=== PATIENT | female | born 1970 | race Caucasian/White ===

== ENCOUNTER 2020-06-27 15:26 | Outpatient (CLI) | payer BC, SELFPAY ==
--- NOTE | ~2020-06-27 | MM_ITS ---
EXAMINATION: MM screening naomi BI w donal HISTORY: Screening mammogram, family history of breast cancer in her mother. TECHNIQUE: Craniocaudal and mediolateral oblique 3-D tomosynthesis images were obtained and synthetic 2-D images were generated. CAD analysis was submitted and interpreted. COMPARISON: 03/29/2019, 03/11/2019, 12/12/2014 BREAST PARENCHYMAL COMPOSITION: The breasts are almost entirely fatty. FINDINGS: There is no evidence of suspicious mass, calcification, or architectural distortion to sugg est malignancy in either breast. There has been no suspicious interval change. IMPRESSION: 1. No mammographic evidence of malignancy. 2. Recommend routine screening mammography in one year. BI-RADS Category 1: Negative Reviewed, dictated and finalized at location B.
== END 2020-06-27 15:27 | disposition home or self-care (01) ==
LOC: ANHIMG 15:28
PROVIDERS: PCP Internal Medicine; Visit Provider Advanced Practice Midwife
DX: Z12.31 Encounter for screening mammogram for malignant neoplasm of breast (principal)
CPT/HCPCS: 77063; 77067

== ENCOUNTER → 2021-06-29 11:18 | Outpatient (CLI) | payer BC, SELFPAY ==
--- NOTE | ~2021-06-29 | MM_ITS ---
EXAMINATION: MM screening naomi BI w donal HISTORY: Screening TECHNIQUE: Craniocaudal and mediolateral oblique 3-D tomosynthesis images were obtained and synthetic 2-D images were generated. CAD analysis was submitted and interpreted. COMPARISON: Comparison to multiple prior studies sequentially, with oldest reviewed study dated 08/22. BREAST PARENCHYMAL COMPOSITION: There are scattered areas of fibroglandular density. FINDINGS: There is no evidence of suspicious mass, calcification, or architectural distortion to sugg est malignancy in either breast. There has been no suspicious interval change. IMPRESSION: 1. No mammographic evidence of malignancy. 2. Recommend routine screening mammography in one year. BI-RADS Category 1: Negative Reviewed, dictated and finalized at location A.
== END ==
PROVIDERS: Visit Provider Advanced Practice Midwife
DX: Z12.31 Encounter for screening mammogram for malignant neoplasm of breast (principal)
CPT/HCPCS: 77063; 77067

== ENCOUNTER → 2021-08-08 16:44 | Outpatient (CLI) | payer BC, SELFPAY ==
--- NOTE | ~2021-08-08 | XR_ITS ---
EXAMINATION: XR chest 2V 08/08/2021 17:00 INDICATION: Shortness of breath and chest pain PROCEDURE: 2 view chest COMPARISON: 04/12/2014 FINDINGS: The lungs are clear. The cardiomediastinal silhouette is within normal limits. There are no pleural effusions. There is no pneumothorax suspected. IMPRESSION: 1: NO ACUTE CARDIOPULMONARY DISEASE. Reviewed, dictated and finalized at location A.
== END ==
PROVIDERS: PCP Internal Medicine; Visit Provider Internal Medicine
DX: R06.02 Shortness of breath (principal); R07.89 Other chest pain
CPT/HCPCS: 71046

== ENCOUNTER → 2022-09-10 14:03 | Outpatient (CLI) | payer BC, OTHER, SELFPAY ==
--- NOTE | ~2022-09-10 | MM_ITS ---
EXAMINATION: MM screening naomi BI w donal HISTORY: Screening TECHNIQUE: Craniocaudal and mediolateral oblique 3-D tomosynthesis images were obtained and synthetic 2-D images were generated. CAD analysis was submitted and interpreted. COMPARISON: Breast composed of scattered areas of fibroglandular density BREAST PARENCHYMAL COMPOSITION: The breasts are almost entirely fatty. FINDINGS: There is no evidence of suspicious mass, calcification, or architectural distortion to sugg est malignancy in either breast. There has been no suspicious interval change. IMPRESSION: 1. No mammographic evidence of malignancy. 2. Recommend routine screening mammography in one year. BI-RADS Category 1: Negative Reviewed, dictated and finalized at location A.
== END ==
PROVIDERS: PCP Advanced Practice Midwife
DX: Z12.31 Encounter for screening mammogram for malignant neoplasm of breast (principal)
CPT/HCPCS: 77063; 77067

== ENCOUNTER 2022-12-05 08:07 | Outpatient (CLI) | payer BC, SELFPAY ==
[2022-12-05 20:00] LABS: Basophils Absolute Auto 0.1 K/mm3 (0.0-0.1); Basophils Percent Auto 1.4 % (0.2-1.2); Eosinophils Absolute Auto 0.3 K/mm3 (0-0.3); Eosinophils Percent Auto 5.3 % (0-4.4); Hematocrit 41.5 % (37.0-47.0); Immature Granulocyte Absolute 0.01 K/mm3 (0.00-0.031); Immature Granulocyte Percent A 0.2 % (0-0.5); Lymphocytes Percent Auto 41.7 % (18.3-44.2); Mean Corpuscular HGB Conc 33.7 g/dl (32-36); Mean Corpuscular Hemoglobin 30.6 pg (26-34); Mean Corpuscular Volume 90.6 fl (80-100); Mean Platelet Volume 10.5 fl (7.4-10.4); Monocytes Absolute Auto 0.5 K/mm3 (0.1-0.6); Monocytes Percent Auto 9.8 % (2.6-8.5); Neutrophils Absolute Auto 2.3 K/mm3 (1.3-6.7); Neutrophils Percent Auto 41.6 % (45.5-73.1); Platelet Count Result 253 k/mm3 (150-375); Red Blood Count 4.58 M/mm3 (4.2-5.4); Red Cell Distribution Width 12.9 % (11.5-14.5); White Blood Count 5.5 K/mm3 (4.5-10.0)
[2022-12-05 20:08] LABS: Alanine Aminotransferase 37 U/L (6-35); Albumin Level 4.3 g/dL (3.5-5.1); Alkaline Phosphatase 60 U/L (38-126); Anion Gap 6 mmol/L (8-16); Aspartate Amino Transferase 47 U/L (14-36); Bilirubin,Total 0.5 mg/dL (0.2-1.3); Blood Urea Nitrogen 19 mg/dL (7-17); Calcium 8.8 mg/dL (8.4-10.2); Carbon Dioxide 31 mmol/L (22-30); Chloride 104 mmol/L (98-107); Cholesterol 199 mg/dL (0-200); Estimated Glomerular Filt Rate > 60; Glucose 92 mg/dL (65-110); HDL Direct 65 mg/dL; Potassium 4.5 mmol/L (3.4-5.0); Sodium 141 mmol/L (137-145); Triglycerides 146 mg/dL (<150)
[2022-12-05 20:19] LABS: LDL Cholesterol Direct 92 mg/dL
== END 2022-12-05 08:08 | disposition home or self-care (01) ==
LOC: ANHGOSHLAB 08:09
PROVIDERS: PCP Internal Medicine; Visit Provider Clinical Nurse Specialist
DX: G43.909 Migraine, unspecified, not intractable, without status migrainosus (principal); Z13.220 Encounter for screening for lipoid disorders; Z13.228 Encounter for screening for other metabolic disorders
CPT/HCPCS: 36415; 80053; 80061; 84443; 85025

== ENCOUNTER → 2022-12-18 09:07 | Outpatient (CLI) | payer BC, SELFPAY ==
--- NOTE | ~2022-12-18 | MR_ITS ---
MRI of the brain Clinical History: Headache Technique: Axial and sagittal T1-weighted images were acquired. These were followed by axial T2-weigh jacquie, diffusion weighted, gradient, and FLAIR images. Following intravenous administration of 19 cc Mu ltiHance gadolinium, T1-weighted fat-sat imaging was performed in the axial, coronal, and sagittal pl anes. COMPARISON: 02/14/2014 Findings: No abnormal signal seen in the brain parenchyma. No acute infarct, intracranial hemorrhage, or mass lesion. Ventricles and subarachnoid spaces are unremarkable. Orbits are unremarkable. Paranasal sinuses and m astoid air cells are clear. Major intracranial flow voids are intact. Sagittal midline structures are intact. No abnormal postcontrast enhancement identified. IMPRESSION: Unremarkable exam. Reviewed, dictated and finalized at location M. CE CLERK IMPRESSION: Unremarkable exam.
== END ==
PROVIDERS: PCP Clinical Nurse Specialist; Visit Provider Clinical Nurse Specialist
DX: G43.909 Migraine, unspecified, not intractable, without status migrainosus (principal)
CPT/HCPCS: 70553; A9577

== ENCOUNTER → 2023-09-14 13:48 | Outpatient (CLI) | payer BC, SELFPAY ==
--- NOTE | ~2023-09-14 | MM_ITS ---
EXAMINATION: MM screening naomi BI w donal HISTORY: Screening TECHNIQUE: Craniocaudal and mediolateral oblique 3-D tomosynthesis images were obtained and synthetic 2-D images were generated. CAD analysis was submitted and interpreted. COMPARISON: Comparison to multiple prior studies sequentially, with oldest reviewed study dated 12/12. BREAST PARENCHYMAL COMPOSITION: There are scattered areas of fibroglandular density. FINDINGS: There is no evidence of suspicious mass, calcification, or architectural distortion to sugg est malignancy in either breast. There has been no suspicious interval change. IMPRESSION: 1. No mammographic evidence of malignancy. 2. Recommend routine screening mammography in one year. BI-RADS Category 1: Negative Reviewed, dictated and finalized at location A.
== END ==
PROVIDERS: PCP Advanced Practice Midwife; Visit Provider Advanced Practice Midwife
DX: Z12.31 Encounter for screening mammogram for malignant neoplasm of breast (principal)
CPT/HCPCS: 77063; 77067

== ENCOUNTER → 2023-09-17 09:56 | Outpatient (CLI) | payer BC, SELFPAY ==
--- NOTE | ~2023-09-17 | CT_ITS ---
EXAMINATION: CT brain wo/w con DATE: 09/17/2023 10:59 INDICATION: Choroid plexus cyst TECHNIQUE: Computed tomography (CT) of the head was performed without and subsequently with 100 CC Om nipaque 350 intravenous contrast. The mA was adjusted according to patient size. Iterative reconstruc tion technique was employed. Exam dose: 1291.38 mGy-cm total exam DLP. COMPARISON: 12/18/2022 MRI brain/brainstem, 12/04/2019 CT brain FINDINGS: Bilateral carotid siphon internal carotid artery mild calcification. No intracranial mass lesion or hemorrhage or cerebrovascular accident, midline shift or mass effect e ffect is detected. Normal ventricular size. No subdural or epidural hematoma. No fracture or bone destruction of the cranial vault. Included mastoid air cells and paranasal sinuses are normally developed and aerated. IMPRESSION: Mild intracranial cerebral atherosclerosis; no acute intracranial finding Reviewed, dictated and finalized at Location A. Reviewed, dictated and finalized at location L.
== END ==
PROVIDERS: PCP Clinical Nurse Specialist
DX: G93.0 Cerebral cysts (principal); G43.101 Migraine with aura, not intractable, with status migrainosus; I67.2 Cerebral atherosclerosis
CPT/HCPCS: 70470; Q9967

== ENCOUNTER 2023-11-09 15:36 | Emergency (ER) | payer BC, SELFPAY ==
--- NOTE | ~2023-11-09 | XR_ITS ---
EXAMINATION: XR ankle RT min 3V INDICATION: Right ankle pain TECHNIQUE: Four views of the right ankle are obtained. COMPARISON: None available FINDINGS: Bone alignment is normal. There is no fracture. There is lateral soft tissue swelling of an kle. A plantar calcaneal enthesophyte is noted. IMPRESSION: 1. Lateral soft tissue swelling of ankle without acute osseous abnormality identified. Reviewed, dictated and finalized at location B. ISSIONED SALES ASSOCIATE IMPRESSION: 1. Lateral soft tissue swelling of ankle without acute osseous abnormality iden tified.
[2023-11-09 15:54] VITALS: BP 138/105; PULSE 73; RESP 16; TEMP 36.8; O2SAT 99
--- NOTE | 2023-11-09 16:06 | ED.LOWEXIN ---
HPI - Extremity Injury (Lower) General Chief Complaint: Extremity Injury, Lower Stated Complaint: Injured foot Source: patient, RN notes reviewed and old records reviewed Mode of arrival: ambulatory Limitations: no limitations History of Present Illness HPI Narrative: 43-year-old female patient presents with complaint of right ankle pain this started 2 hours ago after tripping over the dog and missing the last step. Patient noted to have pain andswelling lateral malleolus. MD complaint: ankle injury Onset (ago): hour(s) (2) Injury: Right: ankle Type of Injury: inversion Relieving factors: nothing Related Data Home Medications Medication Instructions Recorded Confirmed estradiol 1 mg tablet 1 mg PO DAILY 12/10/22 11/09/23 Allergies Allergy/AdvReac Type Severity Reaction Status Date / Time meperidine Allergy Unknown Unknown Verified 11/09/23 16:06 Penicillins Allergy Unknown Unknown Verified 11/09/23 16:06 Review of Systems Constitutional: Constitutional: Reports no additional constitutional complaints Eyes: Eyes: Reports no additional eye complaints ENT: Reports system reviewed and no additional complaints, except as documented Cardiovascular: Cardiovascular: Reports no additional cardiovascular complaints Respiratory: Respiratory: Reports no additional respiratory complaints Musculoskeletal: Musculoskeletal: Reports arthralgias, Reports joint swelling and Reports limited range of motion Neurologic: Reports system reviewed and no additional complaints, except as documented [facility] Past Medical History Medical History 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 Family history of diabetes mellitus GERD (gastroesophageal reflux disease) History of angina History of hormone therapy Migraines Pneumonia depression Screening for lipoid disorders Screening for metabolic disorder Seasonal allergies Surgical History Surgical History H/O left wrist surgery H/O right knee surgery H/O right wrist surgery H/O: hysterectomy Hx of breast reduction, elective Hx of LASIK bilateral Family History Family History Mother Family history of malignant neoplasm Family history of coronary artery disease Family history of type 2 diabetes mellitus Diabetes mellitus Father Patient's father is in good health Family history of type 2 diabetes mellitus Diabetes mellitus Social History Social History Social History: Caffeine-coffee/green tea Smoking status: Former smoker Alcohol intake: current Alcohol use details: occasionally wine Lack of Transportation: No Lack of Food: Never True Current Housing: I Have Housing Concerned About Future Housing: No Difficulty Paying Gas/Electric Bills: No Difficulty Paying for Meds: No Currently Unemployed: No Education: Trade/Vocational Certificate Difficulty w/ Childcare or Family Care: No Gender identity (if verbalized by the patient): Female Comments At the time of my signature, I reviewed and agree with the nursing past medical, surgical, social, and family history. There is no relevant family history pertinent to the patient complaint. Exam Const: General: cooperative, healthy appearing, no acute distress and well nourished Nutritional Appearance: well nourished Orientation/consciousness: patient oriented x3 Limitations: no limitations HENMT: Head: normal to inspection and normocephalic Ears: external ears normal, TM's normal bilaterally, mastoids normal and Abnormal EAC present Face/Nose/Sinus: normal facial exam Face and sinus: normal facial exam Mouth: Yes Normal oral and palatal mucosa present, Yes oropharynx normal and Yes moist mucous membranes Throat: posterior oropharynx normal, tonsils normal, uvula midline and no u
== END 2023-11-09 16:24 | disposition home or self-care (01) ==
PROVIDERS: Emergency Provider Registered Nurse; PCP Clinical Nurse Specialist
DX: S93.401A Sprain of unspecified ligament of right ankle, initial encounter (principal); W01.0XXA Fall on same level from slipping, tripping and stumbling without subsequent striking against object, initial encounter; Z87.891 Personal history of nicotine dependence; K21.9 Gastro-esophageal reflux disease without esophagitis
CPT/HCPCS: 73610; 99213; G0463

== ENCOUNTER → 2023-12-01 07:03 | Outpatient (CLI) | payer BC, OTHER, SELFPAY ==
--- NOTE | ~2023-12-01 | MR_ITS ---
MRI of the right ankle Clinical history: Pain Technique: Coronal proton-density and proton-density fat-sat images, axial proton-density and proton- density fat-sat images, and sagittal proton-density and proton-density fat-sat images were acquired. Findings: Syndesmotic ligaments are intact. There is thickening and increased signal of the anterior talofibular ligament. Posterior talofibular ligament is intact. There is also thickening and increase d signal at the proximal fibular origin of the calcaneofibular ligament. Deltoid ligament is intact. Medial flexor tendons, peroneus longus tendon, anterior extensor tendons, and Achilles tendon are int act. Probable longitudinal split tear of the peroneus brevis tendon at the level of the tip of the la teral malleolus. No osteochondral lesion of the talar dome identified. Bone marrow signals and joint spaces are essent ially unremarkable. There is moderate tibiotalar joint effusion. Plantar fascia is mildly thickened proximally, but without surrounding soft tissue edema. Plantar deon caneal spur present. Normal signal preserved in the sinus Tarsi. Impression: Probable longitudinal split tear of the peroneus brevis tendon. Findings consistent with acute sprain of the anterior talofibular and calcaneofibular ligaments. Moderate tibiotalar joint effusion. Reviewed, dictated and finalized at [facility]. ULTING HR PROFESSIONAL Impression: Probable longitudinal split tear of the peroneus brevis tendon. Findings consistent with acute sprain of the anterior talofibular and calcaneof ibular ligaments. Moderate tibiotalar joint effusion.
--- NOTE | ~2023-12-01 | US_ITS ---
Ultrasound of the neck CLINICAL HISTORY: Palpable lymph node TECHNIQUE: Targeted sonographic imaging performed of the left posterolateral neck at the area of palp able concern. FINDINGS: At the area of palpable concern at 2 morphologically normal lymph nodes with reniform riana x and fatty hilum. Largest node measures up to 11 mm in maximum diameter, with smaller node measures up to 5 mm in maximum diameter. No other mass lesion or fluid collection seen. IMPRESSION: 2 morphologically normal lymph nodes which correlate with the area of palpable concern. No suspicious abnormality evident. Reviewed, dictated and finalized at location M. D LINING MACHINE OPERATOR
== END ==
PROVIDERS: PCP Clinical Nurse Specialist; Visit Provider Clinical Nurse Specialist
DX: R59.0 Localized enlarged lymph nodes (principal); S99.911A Unspecified injury of right ankle, initial encounter; X58.XXXA Exposure to other specified factors, initial encounter; M25.471 Effusion, right ankle
CPT/HCPCS: 73721; 76536

== ENCOUNTER 2024-04-18 08:39 | Outpatient (CLI) | payer BC, SELFPAY ==
--- NOTE | ~2024-04-18 | MR_ITS ---
EXAMINATION: MR brain/brain stem wo/w con DATE: 04/18/2024 09:22 INDICATION: Cerebral cysts. TECHNIQUE: Magnetic resonance imaging (MRI) of the brain and brainstem was performed without and with 20 mL MultiHance intravenous contrast. COMPARISON: Brain MRI 12/18/2022, head CT 09/17/2023 FINDINGS: There is no intracranial hemorrhage, acute infarction, or abnormal intracranial mass lesion . The ventricles are normal in size. The orbits are normal. The paranasal sinuses are clear. The mast oid air cells are normal. IMPRESSION: 1. Normal brain. Reviewed, dictated and finalized at location A. IMPRESSION: 1. Normal brain.
== END 2024-04-18 08:40 ==
LOC: MICIMG 08:40
PROVIDERS: PCP Clinical Nurse Specialist; Visit Provider Clinical Nurse Specialist
DX: G93.0 Cerebral cysts (principal)
CPT/HCPCS: 70553; A9577

== ENCOUNTER 2024-11-24 12:23 | Outpatient (CLI) | payer BC, SELFPAY ==
--- NOTE | ~2024-11-24 | MM_ITS ---
EXAMINATION: MM screening naomi BI w donal HISTORY: Screening. Significant family history of breast cancer. Post reduction mammoplasty in 1990. Exogenous hormone replacement. TECHNIQUE: Craniocaudal and mediolateral oblique 3-D tomosynthesis images were obtained and synthetic 2-D images were generated. CAD analysis was submitted and interpreted. COMPARISON: 09/14/2023 and dating back to 06/27/2020 BREAST PARENCHYMAL COMPOSITION: There are scattered areas of fibroglandular density. FINDINGS: Stable parenchymal pattern without suspicious microcalcifications, architectural distortion, discrete masses or significant asymmetry. IMPRESSION: 1. No mammographic evidence of malignancy. 2. Recommend routine screening mammography in one year. BI-RADS Category 1: Negative Reviewed, dictated and finalized at location A. ENGINEERING MANAGER
== END 2024-11-24 12:24 | disposition home or self-care (01) ==
LOC: MICIMG 12:23
PROVIDERS: PCP Clinical Nurse Specialist; Visit Provider Advanced Practice Midwife
DX: Z12.31 Encounter for screening mammogram for malignant neoplasm of breast (principal)
CPT/HCPCS: 77063; 77067

== ENCOUNTER 2025-04-26 09:45 | Emergency (ER) | payer BC, SELFPAY ==
--- NOTE | ~2025-04-26 | CT_ITS ---
Non-contrast CT scan of the Abdomen and Pelvis Clinical indication: Hematuria Technique: 2.5 mm axial scans were obtained through the abdomen and pelvis without intravenous or or al contrast. Dose reduction technique was used on this scan by utilizing automated exposure control a nd iterative reconstruction technique. The dose-length product (DLP) was 1063.84 mGy-cm. Findings: Images through the lung bases reveal no abnormalities. There is no evidence of renal or ureteral calculi. The kidneys and the ureters are nondilated. The liver, spleen, pancreas, and adrenals appear normal. Probable subtle gallstones. There is no aort ic aneurysm. There is no evidence of bowel obstruction. Images through the pelvis were performed. There is no evidence of ascites or lymphadenopathy. Urinary bladder unremarkable. No pelvic mass seen. Impression: Probable cholelithiasis. No other significant findings. Reviewed, dictated and finalized at [facility]. Impression: Probable cholelithiasis. No other significant findings.
--- OUTSIDE RECORDS SUMMARY | 2025-04-26 09:49 | XMS_ITS | Encounter Summary ---
Author Organization [facility] Care Team Providers Care Shoulder Pad Molder Name Role Phone Brian Fagan MD Primary Care Provider [phone] Katerina Greco NP Primary Care Provider [phone] Encounter Details Date Type Department Care Team (Latest Contact Info) Description 01/17/2017 Orders Only MMG CLINCONV ProviderTerrie MD [address] [place], [place] [id number] Social History Tobacco Use Types Packs/Day Years Used Date Smoking Tobacco: Never Assessed Comments Unknown Sex and Gender Information Value Date Recorded Sex Assigned at Not on file Legal Sex Female 1:49 AM VICE PRESIDENT SAFETY Gender Identity Not on file Sexual Orientation Not on file documented as of this encounter Plan of Treatment Not on file documented as of this encounter Procedures Procedure Name Priority Date/Time Associated Diagnosis Comments CARDIOLOGY REPORT 01/17/2017 12: 00 AM VICE PRESIDENT SAFETY documented in this encounter Results * CARDIOLOGY REPORT (01/17/2017 12:00 AM VICE PRESIDENT SAFETY) Anatomical Region Laterality Modality Other Narrative 01/17/2017 12:00 AM VICE PRESIDENT SAFETY Ordered by an unspecified provider. Historical Provider [facility] Final Result documented in this encounter Visit Diagnoses Not on filedocumented in this encounter Care Teams Shoulder Pad Molder Relationship Specialty Start Date End Date Brian Fagan MD [address] [place] [address] PCP - General Internal Medicine 09/26/21 03/15/24 Katerina Greco NP [address] [place] [address] PCP - General Cardiovascular Disease 03/16/24 documented as of this encounter
--- OUTSIDE RECORDS SUMMARY | 2025-04-26 09:49 | XMS_ITS | Encounter Summary ---
Author Organization [facility] [place] [facility] Care Team Providers Care Change Management Lead Name Role Phone Brian Fagan MD Primary Care Provider [phone] Katerina Greco NP Primary Care Provider [phone] Encounter Details Date Type Department Care Team (Latest Contact Info) Description 01/08/2017 Orders Only MMG CLINCONV ProviderTerrie MD [address] [place], [place] [id number] Social History Tobacco Use Types Packs/Day Years Used Date Smoking Tobacco: Never Assessed Comments Unknown Sex and Gender Information Value Date Recorded Sex Assigned at Not on file Legal Sex Female 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 ROOM 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 Historical Provider [facility] Final Result * CARDIOLOGY REPORT (01/08/2017 12:00 AM LINEN ROOM HOUSEPERSON) Anatomical Region Laterality Modality Other Narrative 01/08/2017 12:00 AM LINEN ROOM HOUSEPERSON Ordered by an unspecified provider. us Historical Provider [facility] Final Result documented in this encounter Visit Diagnoses Not on filedocumented in this encounter Care Teams Change Management Lead Relationship Specialty Start Date End Date Brian Fagan MD [address] [place] [address] PCP - General Internal Medicine 09/26/21 03/15/24 Katerina Greco NP [address] [place] [address] PCP - General Cardiovascular Disease 03/16/24 documented as of this encounter
--- OUTSIDE RECORDS SUMMARY | 2025-04-26 09:49 | XMS_ITS | Encounter Summary ---
Author Organization [facility] Care Team Providers Care C D Area Supervisor Name Role Phone Brian Fagan MD Primary Care Provider [phone] Katerina Greco NP Primary Care Provider [phone] Encounter Details Date Type Department Care Team (Latest Contact Info) Description 01/05/2017 Orders Only MMG CLINCONV ProviderTerrie MD [address] [place], [place] [id number] Social History Tobacco Use Types Packs/Day Years Used Date Smoking Tobacco: Never Assessed Comments Unknown Sex and Gender Information Value Date Recorded Sex Assigned at Not on file Legal Sex Female 1:49 AM SALESPERSON [place] [employer] Gender Identity Not on file Sexual Orientation Not on file documented as of this encounter Plan of Treatment Not on file documented as of this encounter Procedures Procedure Name Priority Date/Time Associated Diagnosis Comments CARDIOLOGY REPORT 01/05/2017 12: 00 AM SALESPERSON [employer] documented in this encounter Results * CARDIOLOGY REPORT (01/05/2017 12:00 AM SALESPERSON [employer]) Anatomical Region Laterality Modality Other Narrative 01/05/2017 12:00 AM SALESPERSON [place] Ordered by an unspecified provider. Historical Provider [facility] Final Result documented in this encounter Visit Diagnoses Not on filedocumented in this encounter Care Teams C D Area Supervisor Relationship Specialty Start Date End Date Brian Fagan MD [address] [place] [address] PCP - General Internal Medicine 09/26/21 03/15/24 Katerina Greco NP [address] [place] [address] PCP - General Cardiovascular Disease 03/16/24 documented as of this encounter
--- OUTSIDE RECORDS SUMMARY | 2025-04-26 09:49 | XMS_ITS | Encounter Summary ---
Author Organization [facility] Care Team Providers Care Automatic Grinder Operator Name Role Phone Biran Fagan MD Primary Care Provider [phone] Katerina Greco NP Primary Care Provider [phone] Encounter Details Date Type Department Care Team (Latest Contact Info) Description 01/14/2017 Orders Only MMG CLINCONV ProviderTerrie MD [address] [place], [place] [id number] Social History Tobacco Use Types Packs/Day Years Used Date Smoking Tobacco: Never Assessed Comments Unknown Sex and Gender Information Value Date Recorded Sex Assigned at Not on file Legal Sex Female 1:49 AM COORDINATOR OF PLACEMENT Gender Identity Not on file Sexual Orientation Not on file documented as of this encounter Plan of Treatment Not on file documented as of this encounter Procedures Procedure Name Priority Date/Time Associated Diagnosis Comments CARDIOLOGY REPORT 01/15/2017 12: 00 AM COORDINATOR OF PLACEMENT documented in this encounter Results * CARDIOLOGY REPORT (01/15/2017 12:00 AM COORDINATOR OF PLACEMENT) Anatomical Region Laterality Modality Other Narrative 01/15/2017 12:00 AM COORDINATOR OF PLACEMENT Ordered by an unspecified provider. Historical Provider [facility] Final Result documented in this encounter Visit Diagnoses Not on filedocumented in this encounter Care Teams Automatic Grinder Operator Relationship Specialty Start Date End Date Brian Fagan MD [address] [place] [address] PCP - General Internal Medicine 09/26/21 03/15/24 Katerina Greco NP [address] [place] [address] PCP - General Cardiovascular Disease 03/16/24 documented as of this encounter
--- OUTSIDE RECORDS SUMMARY | 2025-04-26 09:49 | XMS_ITS | Encounter Summary ---
Author Organization [facility] Care Team Providers Care Client Services Specialist Name Role Phone Brian Fagan MD Primary Care Provider [phone] Katerina Greco NP Primary Care Provider [phone] Encounter Details Date Type Department Care Team (Latest Contact Info) Description 12/02/2016 Orders Only MMG CLINCONV ProviderTerrie MD [address] [place], [place] [phone] Social History Tobacco Use Types Packs/Day Years Used Date Smoking Tobacco: Never Assessed Comments Unknown Sex and Gender Information Value Date Recorded Sex Assigned at Not on file Legal Sex Female 1:49 AM DRY MOP MAKER Gender Identity Not on file Sexual Orientation Not on file documented as of this encounter Plan of Treatment Not on file documented as of this encounter Procedures Procedure Name Priority Date/Time Associated Diagnosis Comments SCAN - LABS 12/10/2016 12:00 AM DRY MOP MAKER CARDIOLOGY REPORT 12/10/2016 12: 00 AM DRY MOP MAKER documented in this encounter Results * SCAN - LABS (12/10/2016 12:00 AM DRY MOP MAKER) Narrative 12/10/2016 12:00 AM DRY MOP MAKER Ordered by an unspecified provider. Historical Provider Final Res ult * CARDIOLOGY REPORT (12/10/2016 12:00 AM DRY MOP MAKER) Anatomical Region Laterality Modality Other Narrative 12/10/2016 12:00 AM DRY MOP MAKER Ordered by an unspecified provider. us Historical Provider [facility] Final Result documented in this encounter Visit Diagnoses Not on filedocumented in this encounter Care Teams Client Services Specialist Relationship Specialty Start Date End Date Brian Fagan MD [address] [place] [address] PCP - General Internal Medicine 09/26/21 03/15/24 Katerina Greco NP [address] [place] [address] PCP - General Cardiovascular Disease 03/16/24 documented as of this encounter
--- OUTSIDE RECORDS SUMMARY | 2025-04-26 09:49 | XMS_ITS | Encounter Summary ---
Author Organization [facility] Care Team Providers Care Surveying Or Spatial Science Technician Name Role Phone Brian Fagan MD Primary Care Provider [phone] Katerina Greco NP Primary Care Provider [phone] Encounter Details Date Type Department Care Team (Latest Contact Info) Description 12/28/2016 Orders Only [facility]IN[facility] ProviderTerrie MD [address] [place], [place] [id number] Social History Tobacco Use Types Packs/Day Years Used Date Smoking Tobacco: Never Assessed Comments Unknown Sex and Gender Information Value Date Recorded Sex Assigned at Not on file Legal Sex Female 1: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 Historical Provider [facility] Final Result documented in this encounter Visit Diagnoses Not on filedocumented in this encounter Care Teams Surveying Or Spatial Science Technician Relationship Specialty Start Date End Date Brian Fagan MD [address] [place] [address] PCP - General Internal Medicine 09/26/21 03/15/24 Katerina Greco NP [address] [place] [address] PCP - General Cardiovascular Disease 03/16/24 documented as of this encounter
--- OUTSIDE RECORDS SUMMARY | 2025-04-26 09:49 | XMS_ITS | Encounter Summary ---
Author Organization 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 Historical Provider [facility] Final Result documented in this encounter Visit Diagnoses Not on filedocumented in this encounter Care Teams Hand Spring Repairer Relationship Specialty Start Date End Date Brian Fagan MD [address] [place] [address] PCP - General Internal Medicine 09/26/21 03/15/24 Katerina Greco NP [address] [place] [address] PCP - General Cardiovascular Disease 03/16/24 documented as of this encounter
--- OUTSIDE RECORDS SUMMARY | 2025-04-26 09:49 | XMS_ITS | Encounter Summary ---
Author Organization [facility] Care Team Providers Care Floor Sander Name Role Phone Brian Fagan MD Primary Care Provider [phone] Katerina Greco NP Primary Care Provider [phone] Encounter Details Date Type Department Care Team (Latest Contact Info) Description 01/13/2017 Orders Only [facility] CLINCON[facility] ProviderTerrie MD [address] [place], [place] [phone] Social History Tobacco Use Types Packs/Day Years Used Date Smoking Tobacco: Never Assessed Comments Unknown Sex and Gender Information Value Date Recorded Sex Assigned at Not on file Legal Sex Female 1:49 AM SECURITY FLEX UTILITY OFFICER Gender Identity Not on file Sexual Orientation Not on file documented as of this encounter Plan of Treatment Not on file documented as of this encounter Procedures Procedure Name Priority Date/Time Associated Diagnosis Comments CARDIOLOGY REPORT 01/14/2017 12: 00 AM SECURITY FLEX UTILITY OFFICER documented in this encounter Results * CARDIOLOGY REPORT (01/14/2017 12:00 AM SECURITY FLEX UTILITY OFFICER) Anatomical Region Laterality Modality Other Narrative 01/14/2017 12:00 AM SECURITY FLEX UTILITY OFFICER Ordered by an unspecified provider. Historical Provider [facility] Final Result documented in this encounter Visit Diagnoses Not on filedocumented in this encounter Care Teams Floor Sander Relationship Specialty Start Date End Date Brian Fagan MD [address] [place] [address] PCP - General Internal Medicine 09/26/21 03/15/24 Katerina Greco NP [address] [place] [address] PCP - General Cardiovascular Disease 03/16/24 documented as of this encounter
--- OUTSIDE RECORDS SUMMARY | 2025-04-26 09:49 | XMS_ITS | Encounter Summary ---
Author Organization [facility] Care Team Providers Care Header Operator Name Role Phone Brian Fagan MD Primary Care Provider [phone] Katerina Greco NP Primary Care Provider [phone] Encounter Details Date Type Department Care Team (Latest Contact Info) Description 01/06/2017 Orders Only [facility] CLINCONV ProviderTerrie MD [address] [place], [place] [phone] Social History Tobacco Use Types Packs/Day Years Used Date Smoking Tobacco: Never Assessed Comments Unknown Sex and Gender Information Value Date Recorded Sex Assigned at Not on file Legal Sex Female 1:49 AM PACKING AND STAMPING MACHINE OPERATOR Gender Identity Not on file Sexual Orientation Not on file documented as of this encounter Plan of Treatment Not on file documented as of this encounter Procedures Procedure Name Priority Date/Time Associated Diagnosis Comments CARDIOLOGY REPORT 01/07/2017 12: 00 AM PACKING AND STAMPING MACHINE OPERATOR documented in this encounter Results * CARDIOLOGY REPORT (01/07/2017 12:00 AM PACKING AND STAMPING MACHINE OPERATOR) Anatomical Region Laterality Modality Other Narrative 01/07/2017 12:00 AM PACKING AND STAMPING MACHINE OPERATOR Ordered by an unspecified provider. Historical Provider [facility] Final Result documented in this encounter Visit Diagnoses Not on filedocumented in this encounter Care Teams Header Operator Relationship Specialty Start Date End Date Brian Fagan MD [address] [place] [address] PCP - General Internal Medicine 09/26/21 03/15/24 Katerina Greco NP [address] [place] [address] PCP - General Cardiovascular Disease 03/16/24 documented as of this encounter
--- OUTSIDE RECORDS SUMMARY | 2025-04-26 09:49 | XMS_ITS | Continuity of Care Document ---
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 It does not include entries that were removed or entered in error. 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 It does not include entries that were removed or entered in error. Substance Category Reaction Severity Reaction type Status Date Reported Comments Source PENICILLIN V POTASSIUM Drug allergy (disorder) active [address] [place] [address] ([facility] [place] penicillin V pota ium Propensity to adverse reactions to substance Active Reaction( s): Unknown Unknown Organizati on PENICILLINS Drug allergy (disorder) active [address] [place] [address]) penicillins Propensity to adverse reactions to substance Active Reaction( s): Unknown; Note: Reaction( s): Unknown; Note: PER PT TJR FEB 01 Unknown Organizati on Immunizations Combined list of available immunizations from the Department of Defense and Veterans Affairs facilities. 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 Status Comments Source Influenza, injectable, quadrivalent, preservative free 1 2021 Unknown, Provider [id number] [address] [place] [address] ([facility]) complet ed Influenza , injectabl e, quadrival ent, preservat martha free DoD influenza, injectable, quadrivalent- pf 2021 [id number] 150 sanofi pasteur complet ed influenza , injectabl e, quadrival ent-pf 12/07/21 Given Ambulat ory Pharmac y Influenza, injectable, quadrivalent, preservative free 1 2021 [id number] 150 Sanofi Pasteur ([facility]) complet ed Influenza , injectabl e, quadrival ent, preservat martha free DoD COVID Vaccine Pfizer 2020 [id number] PFIZER complet ed COVID Vaccine Pfizer 11/08/21 Given Ambulat ory Pharmac y SARS-COV-2 (COVID-19) vaccine, mRNA, spike protein, LNP, preservative free, 30 mcg/0.3mL dose 2 2020 [id number] 208 Pfizer, Inc (PFR) complet ed SARS-COV- 2 (COVID-19 ) vaccine, mRNA, spike protein, LNP, preservat martha free, 30 mcg/0.3mL dose DoD COVID Vaccine Pfizer 2020 [id number] 208 PFIZER complet ed COVID Vaccine [facility] 10/16/21 Given Ambulat ory Pharmac y SARS-COV-2 (COVID-19) vaccine, mRNA, spike protein, LNP, preservative free, 30 mcg/0.3mL dose 1 2020 [id number] 208 Pfizer, Inc (PFR) complet ed SARS-COV- 2 (COVID-19 ) vaccine, mRNA, spike protein, LNP, preservat martha free, 30 mcg/0.3mL dose DoD influenza virus vaccine, unspecified 2019 [id number] 88 sanofi pasteur complet ed influenza virus vaccine, unspecifi ed 08/22/20 Given Ambulat ory Pharmac y influenza virus vaccine, unspecified formulation 1 2019 [id number] 88 Sanofi Pasteur ([facility]) complet ed influenza virus vaccine, unspecifi ed formulati on DoD anthrax vaccine 2019 [id number] Emergent Biosolutions complet ed anthrax vaccine 05/04/20 Given Ambulat ory Pharmac y typhoid Vi capsular polysaccharid e vac 2019 [id number] 101 sanofi pasteur complet ed typhoid Vi capsular polysacch aride vac 05/04/20 Given Ambulat ory Pharmac y anthrax vaccine 6 2019 [id number] 24 [employer] [place] ([facility]) complet ed anthrax vaccine DoD typhoid Vi capsular polysaccharid e vaccine 8 2019 [id number] 101 Sanofi Pasteur ([facility]) complet ed typhoid Vi capsular polysacch aride vaccine DoD influenza, injectable, quadrivalent- pf 2018 [id number] 150 Seqirus complet ed influenza , injectabl e, quadrival ent-pf 11/05/19 Given Ambulat ory Pharmac y Influenza, injectable, quadrivalent, preservative free 1 2018 [id number] 150 Seqirus (SEQ) complet ed Influenza , injectabl e, quadrival ent, preservat martha free DoD influenza, injectable, quadrivalent 2017 [id number] GlaxoSmMinco [employer] LabsKli or complet ed influenza , injectabl e, quadrival ent 10/02/18 Given Ambulat ory Pharmac y influenza, injectable, quadrivalent, contains preservative 1 2017 [id number] 158 MaxVision ([facility]) complet ed influenza , injectabl e, quadrival ent, contains preservat martha DoD typhoid Vi capsular polysaccharid e vac 2017 [id number] 101 sanofi pasteur complet ed typhoid Vi capsular polysacch aride vac 05/01/18 Given Ambulat ory Pharmac y typhoid Vi capsular polysaccharid e vaccine 1 2017 [id number] 101 Sanofi Pasteur ([facility]) complet ed typhoid Vi capsular polysacch aride vaccine DoD influenza, seasonal, injectable 2016 [id number] 141 complet ed influenza , seasonal, injectabl e 10/09/17 Given Ambulat ory Pharmac y Influenza, seasonal, injectable 1 2016 [id number] 141 Transcribed (TRS) complet ed Influenza , seasonal, injectabl e DoD influenza virus vaccine, unspecified 2015 [id number] complet ed influenza virus vaccine, unspecifi ed 09/05/16 Given Ambulat ory Pharmac y influenza virus vaccine, unspecified formulation 1 2015 [id number] 88 Transcribed (TRS) complet ed influenza virus vaccine, unspecifi ed formulati on DoD influenza virus vaccine, unspecified 2014 TRANSCR IBED 88 complet ed influenza virus vaccine, unspecifi ed 09/21/15 Given Ambulat ory Pharmac y influenza virus vaccine, unspecified formulation 1 2014 88 Transcribed (TRS) complet ed influenza virus vaccine, unspecifi ed formulati on DoD hepatitis B adult vaccine 2013 [id number] 43 GlaxoSmithKli ne complet ed hepatitis B adult vaccine 11/04/14 Given Ambulat ory Pharmac y anthrax vaccine 2013 [id number] 24 [employer] complet ed anthrax vaccine 11/04/14 Given Ambulat ory Pharmac y measles/mumps /rubella virus vaccine 2013 [id number] 03 Merck & Company Inc complet ed measles/m umps/rube lla virus vaccine 11/04/14 Given Ambulat ory Pharmac y typhoid Vi capsular polysaccharid e vac 2013 [id number] 101 sanofi pasteur complet ed typhoid Vi capsular polysacch aride vac 11/04/14 Given Ambulat ory Pharmac y measles, mumps and rubella virus vaccine 1 2013 [id number] 03 Merck (MSD) complet ed measles, mumps and rubella virus vaccine DoD anthrax vaccine 5 2013 [id number] 24 [employer] (MIP) complet ed anthrax vaccine DoD hepatitis B vaccine, adult dosage 3 2013 [id number] 43 SmithKline ([facility]) complet ed hepatitis B vaccine, adult dosage DoD typhoid Vi capsular polysaccharid e vaccine 6 2013 [id number] 101 Sanofi Pasteur ([facility]) complet ed typhoid Vi capsular polysacch aride vaccine DoD influenza virus vaccine, unspecified 2013 TRANSCR IBED 88 complet ed influenza virus vaccine, unspecifi ed 08/24/14 Given Ambulat ory Pharmac y influenza virus vaccine, unspecified formulation 1 2013 88 Transcribed (TRS) complet ed influenza virus vaccine, unspecifi ed formulati on DoD hepatitis B adult vaccine 2013 [id number] 43 Merck & Company Inc complet ed hepatitis B adult vaccine 05/06/14 Given Ambulat ory Pharmac y hepatitis B vaccine, adult dosage 2 2013 [id number] 43 Merck (MSD) complet ed hepatitis B vaccine, adult dosage DoD hepatitis B adult vaccine 2013 [id number] 43 GlaxoSmithKli ne complet ed hepatitis B adult vaccine 03/04/14 Given Ambulat ory Pharmac y hepatitis B vaccine, adult dosage 1 2013 [id number] 43 [facility] ([facility]) complet ed hepatitis B vaccine, adult dosage DoD influenza virus vaccine, unspecified 2012 TRANSCR IBED 88 complet ed influenza virus vaccine, unspecifi ed 08/16/13 Given Ambulat ory Pharmac y influenza virus vaccine, unspecified formulation 1 2012 88 Transcribed (TRS) complet ed influenza virus vaccine, unspecifi ed formulati on DoD influenza, seasonal, injectable 2011 TRANSCR IBED 141 complet ed influenza , seasonal, injectabl e 08/26/12 Given Ambulat ory Pharmac y Influenza, seasonal, injectable 1 2011 141 Transcribed (TRS) complet ed Influenza , seasonal, injectabl e DoD tetanus, diphtheria, acellular pertu is 2011 [id number] 115 sanofi pasteur complet ed tetanus, diphtheri a, acellular pertussis 08/08/12 Given Ambulat ory Pharmac y tetanus toxoid, reduced diphtheria toxoid, and acellular pertu is vaccine, adsorbed 0 2011 [id number] 115 Sanofi Pasteur ([facility]) complet ed tetanus toxoid, reduced diphtheri a toxoid, and acellular pertussis vaccine, adsorbed DoD influenza, seasonal, injectable 2010 TRANSCR IBED 141 complet ed influenza , seasonal, injectabl e 09/26/11 Given Ambulat ory Pharmac y Influenza, seasonal, injectable 3 2010 141 Transcribed (TRS) complet ed Influenza , seasonal, injectabl e DoD influenza virus vaccine,split 2009 15 complet ed influenza virus vaccine,s plit 10/15/10 Given Ambulat ory Pharmac y influenza virus vaccine, split virus (incl. purified surface antigen)-reti red CODE 2 2009 15 Transcribed (TRS) complet ed influenza virus vaccine, split virus (incl. purified surface antigen)- retired CODE DoD influenza virus vaccine,split 2007 [id number] 15 GlaxoSmithKli ne complet ed influenza virus vaccine,s plit 11/04/08 Given Ambulat ory Pharmac y influenza virus vaccine, split virus (incl. purified surface antigen)-reti red CODE 1 2007 [id number] 15 [facility] ([facility]) complet ed influenza virus vaccine, split virus (incl. purified surface antigen)- retired CODE DoD typhoid Vi capsular polysaccharid e vac 2007 [id number] 101 sanofi pasteur complet ed typhoid Vi capsular polysacch aride vac 08/06/08 Given Ambulat ory Pharmac y yellow fever vaccine 2007 [id number] 37 sanofi pasteur complet ed yellow fever vaccine 08/06/08 Given Ambulat ory Pharmac y yellow fever vaccine 1 2007 [id number] 37 Sanofi Pasteur ([facility]) complet ed yellow fever vaccine DoD typhoid Vi capsular polysaccharid e vaccine 1 2007 [id number] 101 Sanofi Pasteur ([facility]) complet ed typhoid Vi capsular polysacch aride vaccine DoD influenza virus vaccine,split 2006 15 complet ed influenza virus vaccine,s plit 10/08/07 Given Ambulat ory Pharmac y influenza virus vaccine, split virus (incl. purified surface antigen)-reti red CODE 1 2006 15 () complet ed influenza virus vaccine, split virus (incl. purified surface antigen)- retired CODE DoD influenza virus vaccine, whole virus 1 2006 Unknown, Provider 16 () complet ed influenza virus vaccine, whole virus [facility] tetanus-dipht h toxoids (Td) adult/adol 2006 [id number] 09 sanofi pasteur complet ed tetanus-d iphth toxoids (Td) adult/ado l 05/08/07 Given Ambulat ory Pharmac y tetanus and diphtheria toxoids, adsorbed, preservative free, for adult use (2 Lf of tetanus toxoid and 2 Lf of diphtheria toxoid) 1 2006 [id number] 09 Sanofi Pasteur ([facility]) complet ed tetanus and diphtheri a toxoids, adsorbed, preservat martha free, for adult use (2 Lf of tetanus toxoid and 2 Lf of diphtheri a toxoid) DoD influenza virus vaccine,split 2006 [id number] 15 sanofi pasteur complet ed influenza virus vaccine,s plit 12/05/06 Given Ambulat ory Pharmac y influenza virus vaccine, split virus (incl. purified surface antigen)-reti red CODE 1 2006 [id number] 15 Sanofi Pasteur ([facility]) complet ed influenza virus vaccine, split virus (incl. purified surface antigen)- retired CODE DoD typhoid vaccine, inactivated 2005 [id number] 101 sanofi pasteur complet ed typhoid vaccine, inactivat ed 08/15/06 Given Ambulat ory Pharmac y typhoid vaccine, parenteral, other than acetone-kille d, dried 1 2005 [id number] 41 Sanofi Pasteur ([facility]) complet ed typhoid vaccine, parentera l, other than acetone-k illed, dried DoD influenza virus vaccine,split 2004 [id number] 15 sanofi pasteur complet ed influenza virus vaccine,s plit 10/18/05 Given Ambulat ory Pharmac y influenza virus vaccine, split virus (incl. purified surface antigen)-reti red CODE 1 2004 [id number] 15 Sanofi Pasteur ([facility]) complet ed influenza virus vaccine, split virus (incl. purified surface antigen)- retired CODE DoD influenza virus vaccine,split 2004 [id number] 15 sanofi pasteur complet ed influenza virus vaccine,s plit 01/25/05 Given Ambulat ory Pharmac y influenza virus vaccine, split virus (incl. purified surface antigen)-reti red CODE 0 2004 [id number] 15 Sanofi Pasteur ([facility]) complet ed influenza virus vaccine, split virus (incl. purified surface antigen)- retired CODE [facility] meningococcal polysaccharid e (MPSV4) 2004 [id number] 32 sanofi pasteur complet ed meningoco ccal polysacch aride (MPSV4) 12/08/04 Given Ambulat ory Pharmac y meningococcal polysaccharid e vaccine (MPSV4) 0 2004 [id number] 32 Sanofi Pasteur ([facility]) complet ed meningoco ccal polysacch aride vaccine (MPSV4) [facility] typhoid vaccine, inactivated 2003 [id number] 101 sanofi pasteur complet ed typhoid vaccine, inactivat ed 08/24/04 Given Ambulat ory Pharmac y typhoid vaccine, parenteral, other than acetone-kille d, dried 0 2003 [id number] 41 Sanofi Pasteur ([facility]) complet ed typhoid vaccine, parentera l, other than acetone-k illed, dried DoD anthrax vaccine 2003 [id number] 24 [employer] complet ed anthrax vaccine 04/14/04 Given Ambulat ory Pharmac y anthrax vaccine 5 2003 [id number] 24 [employer] ([facility]) complet ed anthrax vaccine DoD anthrax vaccine 2002 [id number] 24 [employer] complet ed anthrax vaccine 10/13/03 Given Ambulat ory Pharmac y anthrax vaccine 4 2002 [id number] 24 [employer] ([facility]) complet ed anthrax vaccine DoD influenza virus vaccine, whole virus 2002 [id number] 16 Novartis Pharmaceutica ls complet ed influenza virus vaccine, whole virus 09/22/03 Given Ambulat ory Pharmac y influenza virus vaccine, whole virus 0 2002 [id number] 16 [employer] (PW[facility]) complet ed influenza virus vaccine, whole virus DoD anthrax vaccine 2002 [id number] 24 [employer] complet ed anthrax vaccine 04/14/03 Given Ambulat ory Pharmac y anthrax vaccine 3 2002 [id number] 24 [employer] ([facility]) complet ed anthrax vaccine DoD anthrax vaccine 2002 [id number] 24 [employer] complet ed anthrax vaccine 01/22/03 Given Ambulat ory Pharmac y anthrax vaccine 2 2002 [id number] 24 [employer] ([facility]) complet ed anthrax vaccine DoD anthrax vaccine 2002 24 [employer] complet ed anthrax vaccine 12/31/02 Given Ambulat ory Pharmac y anthrax vaccine 1 2002 24 [employer] ([facility]) complet ed anthrax vaccine DoD influenza virus vaccine, whole virus 2001 [id number] 16 sanofi pasteur complet ed influenza virus vaccine, whole virus 09/30/02 Given Ambulat ory Pharmac y influenza virus vaccine, whole virus 0 2001 [id number] 16 Sanofi Pasteur ([facility]) complet ed influenza virus vaccine, whole virus DoD tuberculin purified protein derivative 2001 [id number] 96 sanofi pasteur complet ed tuberculi n purified protein derivativ e 08/12/02 Given Ambulat ory Pharmac y typhoid vaccine, inactivated 2001 [id number] 101 sanofi pasteur complet ed typhoid vaccine, inactivat ed 08/12/02 Given Ambulat ory Pharmac y typhoid vaccine, parenteral, other than acetone-kille d, dried 0 2001 [id number] 41 Sanofi Pasteur ([facility]) complet ed typhoid vaccine, parentera l, other than acetone-k illed, dried DoD tuberculin skin test; purified protein derivative solution, intradermal 1 2001 Unknown, Provider [id number] 96 [facility] ([facility]) complet ed tuberculi n skin test; purified protein derivativ e solution, intraderm al DoD influenza virus vaccine, whole virus 2000 [id number] 16 sanofi pasteur complet ed influenza virus vaccine, whole virus 09/15/01 Given Ambulat ory Pharmac y influenza virus vaccine, whole virus 0 2000 [id number] 16 Sanofi Pasteur ([facility]) complet ed influenza virus vaccine, whole virus DoD tuberculin purified protein derivative 2000 [id number] 96 sanofi pasteur complet ed tuberculi n purified protein derivativ e 06/15/01 Given Ambulat ory Pharmac y tuberculin skin test; purified protein derivative solution, intradermal 1 2000 Unknown, Provider [id number] 96 [facility]) complet ed tuberculi n skin test; purified protein derivativ e solution, intraderm al DoD influenza virus vaccine, whole virus 1999 [id number] 16 [facility] complet ed influenza virus vaccine, whole virus 10/27/00 Given Ambulat ory Pharmac y influenza virus vaccine, whole virus 0 1999 [id number] 16 [facility] complet ed influenza virus vaccine, whole virus DoD tuberculin purified protein derivative 1999 [id number] 96 sanofi pasteur complet ed tuberculi n purified protein derivativ e 07/12/00 Given Ambulat ory Pharmac y tuberculin skin test; purified protein derivative solution, intradermal 1 1999 Unknown, Provider [id number] 96 [facility] ([facility]) complet ed tuberculi n skin test; purified protein derivativ e solution, intraderm al DoD influenza virus vaccine, whole virus 1998 16 complet ed influenza virus vaccine, whole virus 08/03/99 Given Ambulat ory Pharmac y influenza virus vaccine, whole virus 0 1998 16 () complet ed influenza virus vaccine, whole virus DoD influenza virus vaccine, whole virus 1998 16 complet ed influenza virus vaccine, whole virus 12/25/98 Given Ambulat ory Pharmac y influenza virus vaccine, whole virus 0 1998 16 () complet ed influenza virus vaccine, whole virus DoD yellow fever vaccine 1997 37 complet ed yellow fever vaccine 03/27/98 Given Ambulat ory Pharmac y yellow fever vaccine 0 1997 37 () complet ed yellow fever vaccine DoD tuberculin purified protein derivative 1996 96 complet ed tuberculi n purified protein derivativ e 10/06/97 Given Ambulat ory Pharmac y typhoid vaccine, live, oral 1996 25 complet ed typhoid vaccine, live, oral 10/06/97 Given Ambulat ory Pharmac y hepatitis A adult vaccine 1996 52 complet ed hepatitis A adult vaccine 10/06/97 Given Ambulat ory Pharmac y typhoid vaccine, live, oral 0 1996 25 () complet ed typhoid vaccine, live, oral DoD hepatitis A vaccine, adult dosage 2 1996 52 () complet ed hepatitis A vaccine, adult dosage DoD meningococcal polysaccharid e (MPSV4) 1996 32 complet ed meningoco ccal polysacch aride (MPSV4) 03/26/97 Given Ambulat ory Pharmac y meningococcal polysaccharid e vaccine (MPSV4) 0 1996 32 () complet ed meningoco ccal polysacch aride vaccine (MPSV4) DoD measles/mumps /rubella virus vaccine 1996 03 complet ed measles/m umps/rube lla virus vaccine 03/03/97 Given Ambulat ory Pharmac y measles, mumps and rubella virus vaccine 0 1996 03 () complet ed measles, mumps and rubella virus vaccine DoD tetanus-dipht h toxoids (Td) adult/adol 1996 09 complet ed tetanus-d iphth toxoids (Td) adult/ado l 02/23/97 Given Ambulat ory Pharmac y tetanus and diphtheria toxoids, adsorbed, preservative free, for adult use (2 Lf of tetanus toxoid and 2 Lf of diphtheria toxoid) 0 1996 09 () complet ed tetanus and diphtheri a toxoids, adsorbed, preservat martha free, for adult use (2 Lf of tetanus toxoid and 2 Lf of diphtheri a toxoid) DoD poliovirus vaccine, live, oral 1990 02 complet ed polioviru s vaccine, live, oral 03/03/91 Given Ambulat ory Pharmac y trivalent poliovirus vaccine, live, oral 0 1990 02 () complet ed trivalent polioviru s vaccine, live, oral [facility] Results Combined list of recent chemistry, hematology and other laboratory results from Department of Defense and Veterans Affairs, ranging from 15 months to all on record, depending upon the facility. Order Name Results Value Reference Range Date Interpretation Specimen Comments Source Infectiou s Disease HIV-1/O/2 Non-Reac tive 1 (12/31/24 8:56 AM) 12/31 N Interpretiv e Data: INTERPRETAT ION: This method is a screening procedure for the detection of HIV p24 Antigen and Antibodies to HIV-1, including Group O, and/or HIV-2. NON-REACTIV E: HIV-1 antigen and HIV-1 / HIV-2 antibodies were not detected. No laboratory evidence of HIV infection. A negative test result does not exclude the possibility of exposure to or infection with HIV. HIV antibodies and/or p24 antigen may be undetectabl e in some stages of the infection and in some clinical conditions. If acute HIV infection is suspected, consider submitting another specimen to a reference laboratory for HIV-1 RNA. SCREEN REACTIVE - CONFIRMATIO N TO FOLLOW: Possible presence of HIV-1antibo dies, HIV-2 antibodies and/or HIV-1 p24 antigen. Specimen will reflex to the confirmatio n testing that fulfills the Center for Disease Control and Prevention' s HIV diagnostic algorithm. [facility] to [facility] Lab Guide for additional information : [email or web address]/ [email or web address] x Testing performed by Madai corley [id number] [employer] EPILAB Miscellan eous Sendouts Repository Sample Received (12/31/24 8:56 AM) 12/31 N [employer] EPILAB Encounters Combined list of: 1) Encounters from Department of Veterans Affairs facilities going backup to the last 18 months, not all [place] inpatient encounters are included; 2) Encounters from the Department of Defense facilities going backup to 280 months. Location Location Details Encounter Type Encounter Number Reason For Visit Attending Provider ADM Date DC Date Status Disposition Source [address] [place] [address] Michael LOPEZ [facility] [place]Sco tt Internal Medicine Tm) OUTPATIENT [id number] LOD left shoulde r pain [phone] [place] ZAMUDIO ELMIRA 10/16 Released w/o Limitations [address] [place] [address] Michael LOPEZ [facility] [place]S cott Interna l Medicin e Tm) [address] [place] [address] [facility])(Phy sical Therapy) OUTPATIENT [id number] traumat ic [facility] injury with ACJ involve mnt LAMIN JANE 10/20 Released w/o Limitations [address] [place] [address] Michael Medardo [facility] [place]P hysical Therapy ) [address] [place] [address] Michael Medardo [facility] [place]Phy sical Therapy) OUTPATIENT [id number] left shoulde r CARITO GRANADOS 11/03 Released w/o Limitations [address] [place] [address] Michael Medardo [facility] [place]P hysical Therapy ) [address] [place] [address] [facility])(Phy sical Therapy) OUTPATIENT [id number] CARITO Miles 11/05 Released w/o Limitations [address] [place] [address] [facility])(P hysical Therapy ) [facility] Facility OUTPATIENT [id number] Theater Provider 02/07 Released w/o Limitations Theater Fac[facility] OUTPATIENT [id number] Theater Provider 02/25 Released w/o Limitations Theater Fac[facility] OUTPATIENT [id number] Theater Provider 02/27 Released w/o Limitations Theater Facilit y [address] [place] [address] [facility])(Fam joya Med Tm B Non-AD BCC) OUTPATIENT [id number] allergy issues, hurt foot and leg while deploye andreina cespedes [phone] [id number] STANLEY PULIDO 03/13 Released with Work/Duty Limitations [address] [place] [address] Michael LOPEZ [facility] [place])(F amily Med Tm B Non-AD BCC) [address] [place] [address] Michael B [facility] [facility]Sco tt [facility] FAMRES Tm Blue) OUTPATIENT [id number] LOD for L knee and L foot MENG LEON 04/16 Released w/o Limitations [address] [place] [address] [facility])(S cott [facility] FAM[facility] Tm Blue) [address] [place] [address])(Sco tt [facility] FAMRES Tm Blue) TELE CONSULT [id number] Notes Entered by: ELVA PALACIOS 27 Apr 2015 0708 ------- ------- ------- ------- -- Profile - paperwo for PCM signatu [facility] - [phone] KARIE STEPHENSON 04/[address] [place] [address])(S cott [facility] FAMRES Tm Blue) [address] [place] [address])(Sco tt [facility] FAMBiotz Tm Blue) TELE CONSULT [id number] Notes Entered by: CHERYLE GOYAL 10 May 2015 0914 ------- ------- ------- ------- -- MRI Results /Kory / MENG LEON 05/[address] [place] [address])(S cott [facility] FAMRES Tm Blue) [address] [place] [address])(Sco tt [facility] Soma Tm Blue) TELE CONSULT [id number] Notes Entered by: SHERRY ROGERS 18 May 2015 1054 ------- ------- ------- ------- -- Network results [facility] 015 MENG LEON 05/[address] [place] [address] [facility])(S cott [facility] FAM[facility] Tm Blue) [address] [place] [address])(Sco tt [facility] FAMBiotz Tm Blue) TELE CONSULT [id number] Notes Entered by: CHERYLE GOYAL 18 Jun 2015 1027 ------- ------- ------- ------- -- Referra l Request /Weimisty h/ DEANA SMITH 06/18 Referred for Appointment [facility] Michael [facility])([facility] FAM[facility] Tm Blue) [facility])([facility] Blue) OUTPATIENT [id number] F/U profile MENG LEON Monie 08/20 Released with Work/Duty Limitations [address] [place] [address] Michael [facility])([facility] Blue) [address] [place] [address] Michael [facility])([facility] ) TELE CONSULT [id number] Notes Entered by: ANNA PRYOR 27 Sep 2015 1613 ------- ------- ------- ------- -- Annual Audiogr am CHRIST HAWK 09/[address] [place] [address] Michael [facility])([facility] e ) [facility] Michael [facility])([facility]) OUTPATIENT [id number] PHAQ Review SPARKLE JAIME 08/08 Released w/o Limitations [facility] Michael [facility] ([facility])(O ldclini c) [address] [place] [address] Michael LOPEZ ([facility])([facility]) OUTPATIENT [id number] Notes Entered by: GARETH HUDSON 01 Oct 2017 1102 ------- ------- ------- ------- -- Annual Audiogr am GARETH HUDSON 10/01 Released with Work/Duty Limitations [facility] Michael [facility])(O ldclini c) [facility] Michael [facility] ([facility])([facility]) OUTPATIENT [id number] Notes Entered by: Gabe MCKEON 01 Oct 2017 1151 ------- ------- ------- ------- -- right foot POLLY MCKEON 10/01 Released w/o Limitations [facility] Michael [facility] ([facility])(O ldclini c) [address] [place] [address] Michael [facility])([facility]) OUTPATIENT [id number] review paty abernathy-con Sep 15 HDEZ, OSCAR PALACIOS 10/03 Released w/o Limitations [facility] [place] ([facility])(O ldclini c) [facility])(Old clinic) OUTPATIENT [id number] Notes Entered by: AVERY BINGHAM 03 Oct 2017 1445 ------- ------- ------- ------- -- Follow Up [facility] AVERY BLAIR 10/03 Released w/o Limitations [facility] [place] ([facility])(O ldclini c) [address] [place] [address] Group [facility])(126 [facility]) TELE CONSULT [id number] Notes Entered by: CRISTOFER NGUYEN 17 Sep 2018 1225 ------- ------- ------- ------- -- Review civilia n NKCEHI Rodrigues 09/[address] [place] [address] Group [facility])(12 25 Primary Care [facility]) [address] [place] [address])([facility]) OUTPATIENT [id number] FOLLOW UP OSCAR HDEZ 10/25 Released w/o Limitations [facility])(12 25 [facility]) [address] [place] [address])([facility]) TELE CONSULT [id number] Notes Entered by: VERA BURRIS 25 Nov 2018 1458 ------- ------- ------- ------- -- AMARIS Guzman 11/25 Other Not Elsewhere Classified [address] [place] [address] Group [facility])(12 25 [facility]) [address] [place] [address])([facility]) OUTPATIENT [id number] Notes Entered by: Gabe MCKEON 07 Jan 2019 1545 ------- ------- ------- ------- -- POLLY Soriano 01/07 Released w/o Limitations [address] [place] [address] Group [facility])(12 25 [facility]) [address] [place] [address])([facility]) OUTPATIENT [id number] Notes Entered by: ANNA PRYOR 09 Jan 2019 1405 ------- ------- ------- ------- -- Annual audiogr am ADORE STEINBERG 01/09 Released w/o Limitations [address] [place] [address] Group [facility])(12 25 [facility]) [address] [place] [address])([facility]) TELE CONSULT [id number] Notes Entered by: VERA BURRIS 02 Feb 2019 0814 ------- ------- ------- ------- -- Left Knee AMARIS BURRIS 02/02 Other Not Elsewhere Classified [address] [place] [address] Group [facility])(12 25 Primary [facility]) [address] [place] [address])([facility]) OUTPATIENT [id number] Notes Entered by: GERONIMO BRUNO 10 Dec 2019 1134 ------- ------- ------- ------- -- Audiogr am ADORE STEINBERG 12/10 Released w/o Limitations [address] [place] [address])(12 25 [facility]) [address] [place] [address])([facility]) TELE CONSULT [id number] Notes Entered by: SUKHDEV OSBORNE 08 Jan 2020 1106 ------- ------- ------- ------- -- SUKHDEV LAWSON 01/[address] [place] [address])(12 25 [facility]) [address] [place] [address])([facility]) OUTPATIENT [id number] Notes Entered by: GARETH HUDSON 04 May 2020 0921 ------- ------- ------- ------- -- SPARKLE Bauer 05/04 Released w/o Limitations [facility])(12 25 Primary Care [facility]) [address] [place] [address])(126 th [facility]) OUTPATIENT [id number] NKECHI STYLES 05/04 Released w/o Limitations [address] [place] [address])(12 25 [facility]) [address] [place] [address])(126 th [facility]) OUTPATIENT [id number] Notes Entered by: SHAD WEBER 05 May 2020 1337 ------- ------- ------- ------- -- SHAD RICHARDS 05/05 Released w/o Limitations [address] [place] [address])(1 Primary Care Clinic) [address] [place] [address])([facility] Virus) OUTPATIENT [id number] 1 deploye r/asymp REINIER Mendosa 08/27 Released w/o Limitations [address] [place] [address])(P andemic Virus) [address] [place] [address])([facility]) TELE CONSULT [id number] Notes Entered by: AMY FLORES 29 Aug 2020 0946 ------- ------- ------- ------- -- Covid Results SERVANDO HURST 08/29 Released to Self Care [address] [place] [address])([facility]) [facility] OUTPATIENT [id number] 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 Limitations [facility] OUTPATIENT [id number] Theater Provider 10/06 Sick at Home/Quarter s [facility] OUTPATIENT [id number] Theater Provider 10/08 Sick at Home/Quarter s [facility] OUTPATIENT [id number] Theater Provider 10/31 Released w/o Limitations Theater Facilit y [address] [place] [address])([facility]) TELE CONSULT [id number] Notes Entered by: CHERYLE GOYAL 07 Nov 2020 0838 ------- ------- ------- ------- -- Sx - L thumb pain/No n-enrol aime/618 .616.49 39 GENI NOBLE 11/07 Referred for Appointment [address] [place] [address])([facility]) [address] [place] [address])([facility]) OUTPATIENT [id number] Lt thumb pain F2F REINIER VAN 11/20 Released w/o Limitations [address] [place] [address])([facility]) [address] [place] [address])([facility]) TELE CONSULT [id number] Notes Entered by: CHERYLE GOYAL 21 Nov 2020 1407 ------- ------- ------- ------- -- Sx - Sx persist - Cough and Chest Congest ion/Non -enroll nori (on orders) / GENI NOBLE 11/21 Referred for Appointment [address] [place] [address])([facility]) [address] [place] [address])([facility] Ad) TELE CONSULT [id number] Notes Entered by: YAMILET VAN 21 Nov 2020 1442 ------- ------- ------- ------- -- rad review REINIER VAN 11/[address] [place] [address])([facility] Ad) [address] [place], [place] [address]AMC)([facility] Ad) OUTPATIENT [id number] 0 [facility] [id number] JASBIR ADAME 11/28 Released w/o Limitations [address] [place] [address] Group [facility])([facility] Tm A Ad) [address] [place] [address])([facility] Ad) OUTPATIENT [id number] Bronchi tis f/u F2F REINIER SPEARS 11/29 Released w/o Limitations [address] [place] [address])([facility] Ad) [address] [place] [address])(126 th [facility]) OUTPATIENT [id number] Notes Entered by: Gabe MCKEON 06 Feb 2021 1612 ------- ------- ------- ------- -- POLLY Menjivar 02/06 Released w/o Limitations [address] [place] [address])(12 25 Primary Care [facility]) [address] [place] [address])(126 [facility]) OUTPATIENT [id number] Notes Entered by: Gabe MCKEON 26 Feb 2021 1203 ------- ------- ------- ------- -- drha3 POLLY MCKEON 02/26 Released w/o Limitations [address] [place] [address])(12 25 [facility]) [address] [place] [address])(126 [facility]) OUTPATIENT [id number] Annual Audiogr am ADORE STEINBERG 02/28 Released w/o Limitations [address] [place] [address])(12 25 [facility]) [address] [place] [address])(126 [facility]) OUTPATIENT [id number] Notes Entered by: VERA BURRIS 25 Sep 2021 0923 ------- ------- ------- ------- -- Talk about COVID vaccine POLLY MCKEON 09/25 Released w/o Limitations [address] [place] [address] ([facility])(12 25[facility]) [address] [place] [address])([address] [place] [address]) OUTPATIENT [id number] Notes Entered by: Gabe MCKEON 02 Oct 2021 0858 ------- ------- ------- ------- -- TTE result review POLLY MCKEON 10/02 Released w/o Limitations [address] [place] [address] Michael [facility] ([facility])(12 25 [facility]) [address] [place] [address] ([facility])([address] [place] [address]) OUTPATIENT [id number] Notes Entered by: Gabe MCKEON 09 Dec 2021 1518 ------- ------- ------- ------- -- phaq POLLY MCKEON 12/09 Released w/o Limitations [address] [place] [address])(12 25[facility]) [address] [place] [address])([address] [place] [address] Clinic) TELE CONSULT [id number] Notes Entered by: VERA BURRIS 11 Dec 2021 1505 ------- ------- ------- ------- -- PHAQ review POLLY MCKEON 12/[address] [place] [address])([address] [facility]) [address] [place] [address])([address] [place] [address]) OUTPATIENT [id number] AUDIOGR AM - ANNUAL GERONIMO BRUNO 04/12 Released w/o Limitations [address] [place] [address] Michael [facility] ([facility])(12 [facility]) [address] [place] [address])([address] [place] [address]) TELE CONSULT [id number] Notes Entered by: Devonte FIGUEROA 31 Dec 2022 1205 ------- ------- ------- ------- -- PHAQ Review LIVIA FIGUEROA 12/31 Other Not Elsewhere Classified [employer] Michael [facility] ([facility])(1 26th [facility]) [employer] Michael [facility] ([facility])(126 th [facility] Care [facility]) OUTPATIENT [id number] BLOOD PRESSUR E POLLY GARAY 02/01 Released w/o Limitations [employer] Michael B ([facility])(1 26th [facility]) [employer] Michael [facility]OPE[facility] ([facility])(126 th [facility] Care [facility]) OUTPATIENT [id number] MHA SPARKLE JAIME 02/01 Released w/o Limitations [employer] Michael [facility] ([facility])(1 th Primary Care Clinic) [id number]-[id number] MDG Care Not Rendered [id number] 04/29 Discharge Disposition: Home or Self Care 8224R-1 26 MDG 8224R-126 MDG Care Not Rendered [id number] 04/30 Discharge Disposition: Home or Self Care 8224R-1 26 MDG 8224R-126 MDG Outpatient [id number] POLLY RAYMONDBILL 12/20 Discharge Disposition: Home or Self Care 8224R-1 26 MDG 8224R-126 MDG Outpatient [id number] POLLY WHITE 12/31 Discharge Disposition: Home or Self Care 8224R-1 26 MDG 8224R-126 MDG Clinic [id number] POLLY WHITE 02/14 Discharge Disposition: Home or Self Care 8224R-1 26 MDG Procedures Combined list of: 1) Procedures from Department of Veterans Affairs facilities [facility], not all VA non-surgical procedures are included; 2) All procedures from the Department of Defense facilities. Procedure Procedure Type Code Date Perfomer Comments Sourc e No data available for this section Ambulatory Pharmacy Non-Physician Phone Call To Patient/Provider Brief (5-10min) Non-Physician Phone Call To Patient/Provider Brief (5-10min) [id number] KARIE STEPHENSON [facility] Physical Therapy Mobilization Joint Physical Therapy Mobilization Joint 92999 011 CARITO GRANADOS [facility] Physical Therapy: ___ Se ion Segments, 15 Minutes Each Physical Therapy: ___ Session Segments, 15 Minutes Each [id number] 011 CARITO GRANADOS Physical Therapy: ___ Se ion Segments, 15 Minutes Each Physical Therapy: ___ Session Segments, 15 Minutes Each 12904 011 CARITO GRANADOS Physical Therapy Mobilization Joint Physical Therapy Mobilization Joint 54224 011 CARITO GRANADOS Exercises A isted Exercises For ROM Exercises Assisted Exercises For ROM 29665 011 LAMIN JANE Physical Therapy Mobilization Joint Physical Therapy Mobilization Joint 68138 011 LAMIN JANE Physical Medicine Physical Therapy Evaluation Physical Medicine Physical Therapy Evaluation 63229 011 LAMIN JANE Threshold Audiogram (Pure Tone) Automated Threshold Audiogram (Pure Tone) Automated 0208T GERONIMO BRUNO [facility] Psychometric Neuropsych Testing Battery Admin By Computer Psychometric Neuropsych Testing Battery Admin By Computer [id number] SHAD MCCARTY [facility] Non-Physician Phone Call To Patient/Provider Brief (5-10min) Non-Physician Phone Call To Patient/Provider Brief (5-10min) 48112 GENI NOBLE [facility] Brief communication technology-based service, e.g. virtual check-in, by a physician or other qualified health care profmanisha segovia who can report evaluation and management services, provided to an established patient, not originating from a related E/M service provided within the previous 7 days nor leading to an E/M service or procedure within the next 24 hours or soonest available appointment; 5-10 minutes of medical discu ion JASBIR ADAME [facility] PURE TONE AUDIOMETRY (THRESHOLD), AUTOMATED; AIR ONLY 022 [facility] BRIEF COMM TECH-BASE SERV,E.G. VIRT CHK-IN,BY PHYS/OTH QUAL HCP,RPT E&M SERV,PROV TO EST PT,NOT ORIG FRM REL E/M SERV PROV W/IN PREV 7DAY NOR LEAD TO E/M SRV/PX W/IN NEXT 24HR/SOON ANA LILIA; 5-10 MIN DISC 020 [facility] TELE ASSESS & MGT SRV PROV QUAL NONPHYS HLTH CARE PRO TO EST PAT,PARENT,GUARD NOT ORIG REL ASSESS & MGT SRV PROV W/IN PREV 7 DAYS NOR LEAD ASSESS & MGT SRV/PX W/IN NXT 24 HR/SOON APT;5-10 MIN MED DIS 020 DoD TELE ASSESS & MGT SRV PROV QUAL NONPHYS HLTH CARE PRO TO EST PAT,PARENT,GUARD NOT ORIG REL ASSESS & MGT SRV PROV W/IN PREV 7 DAYS NOR LEAD ASSESS & MGT SRV/PX W/IN NXT 24 HR/SOON APT;5-10 MIN MED DIS 020 DoD PSYCHOLOGICAL OR NEUROPSYCHOLOGICAL TEST ADMINISTRATION, WITH SINGLE AUTOMATED, STANDARDIZED INSTRUMENT VIA ELECTRONIC PLATFORM, WITH AUTOMATED RESULT ONLY DoD PURE TONE AUDIOMETRY (THRESHOLD), AUTOMATED; AIR ONLY DoD TELE ASSESS & MGT SRV PROV QUAL NONPHYS HLTH CARE PRO TO EST PAT,PARENT,GUARD NOT ORIG REL ASSESS & MGT SRV PROV W/IN PREV 7 DAYS NOR LEAD ASSESS & MGT SRV/PX W/IN NXT 24 HR/SOON APT;5-10 MIN MED DIS 015 [facility] MANUAL THERAPY TECHNIQUES (EG, MOBILIZATION/ MANIPULATION, MANUAL LYMPHATIC DRAINAGE, MANUAL TRACTION), 1 OR MORE REGIONS, EACH 15 MINUTES 011 DoD THERAPEUTIC PROCEDURE, 1 OR MORE AREAS, EACH 15 MINUTES; THERAPEUTIC EXERCISES TO DEVELOP STRENGTH AND ENDURANCE, RANGE OF MOTION AND FLEXIBILITY 011 [facility] THERAPEUTIC PROCEDURE, 1 OR MORE AREAS, EACH 15 MINUTES; THERAPEUTIC EXERCISES TO DEVELOP STRENGTH AND ENDURANCE, RANGE OF MOTION AND FLEXIBILITY 011 DoD Social History Combined list of available smoking, tobacco, and other social history from Department of Defense and Veterans Affairs facilities. Social History Type Response Date Comment [facility] e Sex Representation Female (finding) 03/07/2022 Unknown Organization Sexual Orientation Ambula tory Pharmacy Gender identity Ambulator y Pharmacy This section is an empty social history section. DoD Assessment and Plan Combined list of future care activities from Department of Defense and Veterans Affairs facilities (e.g., assessment and plan notes, appointments, orders, and referrals). Additional future care activities may be listed in the Plan of Care section. 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 Patient s PHAQ responses suggest Routine i tems requiring action. Retention Waiver: N o Profile: N o Medications: Medication List Active Medications No Active Medications Found Medications Inactivated in the Last 72 Hours No medications found. 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 N O VA Disability Rating: N o If, Yes please update below. 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 Member of overdue for Flu vaccine. Member endorses taking Multivitamins, Magnesium, Calcium, Estradiol, T3/T4 Levothy, and Sumatriptan. Member endorses having a change in hearing and Persistent or recurring noises in your head or ears but did not get medical care. Member endorses a New skin condition" and Recurring muscle, joint, or low back pain for which she got medical care, but NO LONGER under treatment. Member endorses Recurring headaches/migraines and is now under treatment for. Member does not have a profile for any of these. Member endorses having an allergy to Penicillin and mold and has Red Dog Tags. Member does not wear corrective lenses. Member endorses good health with a pain level of 1/10 on pain scale. Member has nothing further to report. PHAQ ready for PCM review and signature. 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 She had been on sumatriptan 100 mg for abortive treatment. She reported less than ten migraines per moth but had experienced a 14 - day migraine July 2023 that was believed to be triggered by the weather change. 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 She was to follow up in six months, which would be February 2024. membership advisor will need to provide the encounter notes for 07 September 2023 and any follow up notes for treatment of migraines. Member is here to discuss her deployment clearance. Addendum by POLLY MCKEON on April 02, 2024 10:55 CDT 53 y/o female with intermitant common migraine. This [facility] year Nov-March she has had 1 (one) headache. They respond completely to imitrex and she is reducing from 100 mg to 50. No evidence of red flags. A/P # Migraine without aura. Given the low frequency and complete response to Rx. No need for preventive meds. ---> no concerns. 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 Patient s PHAQ responses suggest Routine i tems requiring action. 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 Y [facility] Disability Rating: N o If, Yes please update below. 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 Need treatment notes for sprained ankle, she is a pre deployer. She reports no pain on this PHA. Reports the following medications: estradiol, Fluticasone propionate, Zyrtec. 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 Will reach out to member to clarify PHA. PHAQ ready for PCM review and signature. 04/26/2025 [id number] [facility] Functional Status Combined list of recent functional and cognitive assessments recorded at Department of Defense and Veterans Affairs (VA).VA Functional [place] Measurement (FIM) Scale: 1 = Total Assistance (Subject = 0% +), 2 = Maximal Assistance (Subject = 25% +), 3 = Moderate Assistance (Subject = 50% +), 4 = Minimal Assistance (Subject = 75% +), 5 = Supervision, 6 = Modified [place] (Device), 7 = Complete [place] (Timely, Safely). Assessment Date/Time Source Assessment Type Assessment Skill Assessment Score Assessment Details No data available for this section
--- OUTSIDE RECORDS SUMMARY | 2025-04-26 09:49 | XMS_ITS | Encounter Summary ---
Author Organization [facility] Facility Care Team Providers Care Assistant Head Cashier Name Role Phone Brian Fagan MD Primary Care Provider [phone] Katerina Greco NP Primary Care Provider [phone] Encounter Details Date Type Department Care Team (Latest Contact Info) Description 12/29/2016 Orders Only [facility] CLINCONV ProviderTerrie MD [address] [place], [place] [id number] Social History Tobacco Use Types Packs/Day Years Used Date Smoking Tobacco: Never Assessed Comments Unknown Sex and Gender Information Value Date Recorded Sex Assigned at Not on file Legal 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 Gender Identity Not on file Sexual Orientation Not on file documented as of this encounter Plan of Treatment Not on file documented as of this encounter Procedures Procedure Name Priority Date/Time Associated Diagnosis Comments CARDIOLOGY REPORT 01/07/2017 12: 00 AM ELECTRO MECHANICAL TECHNOLOGIST CARDIOLOGY REPORT 12/29/2016 12: 00 AM ELECTRO MECHANICAL TECHNOLOGIST documented in this encounter Results * CARDIOLOGY REPORT (01/07/2017 12:00 AM ELECTRO MECHANICAL TECHNOLOGIST) Anatomical Region Laterality Modality Other Narrative 01/07/2017 12:00 AM ELECTRO MECHANICAL TECHNOLOGIST Ordered by an unspecified provider. Historical Provider [facility] Final Result * CARDIOLOGY REPORT (12/29/2016 12:00 AM ELECTRO MECHANICAL TECHNOLOGIST) Anatomical Region Laterality Modality Other Narrative 12/29/2016 12:00 AM ELECTRO MECHANICAL TECHNOLOGIST Ordered by an unspecified provider. us Historical Provider [facility] Final Result documented in this encounter Visit Diagnoses Not on filedocumented in this encounter Care Teams Assistant Head Cashier Relationship Specialty Start Date End Date Brian Fagan MD [address] [place] [address] PCP - General Internal Medicine 09/26/21 03/15/24 Katerina Greco NP [address] [place] [address] PCP - General Cardiovascular Disease 03/16/24 documented as of this encounter
--- OUTSIDE RECORDS SUMMARY | 2025-04-26 09:49 | XMS_ITS | Clinical Summary ---
Author Organization [facility] Address [address] [place] [address] Care Team Providers Care Library Associate Name Role Phone Nohemy Bonilla MD Primary Care Provider Source Comments [facility],non-owned Affiliates and Associated Physician Practices is amultiple site organization consisting of ambulatory clinics and hospital sitesin [place], [place], [place] and [place]. This disclosure is being madepursuant to the Care Everywhere program and may not contain all information available regarding this patient. 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 Gender Identity Not on file Sexual Orientation Not on file Plan of Treatment Health Maintenance Due Date Last Done Comments COLOGUARD (AGES 45-75) - COL ON CA SCREENING 1970 COLON MONITORING 1970 COLONOSCOPY - COLON CA SCREENING 1970 CT COLONOGRAPHY - COLON CA SCREENING 1970 Colorectal Cancer Screening 1970 FIT - COLON CA SCREENING 1970 FLEX SIG - COLON CA SCREENING 1970 LIPID TESTING 1970 MAMMOGRAM 1970 HIV SCREENING 1985 HEPATITIS C SCREENING 10/18/1988 DTAP/TDAP/TD VACCINES (1 - Tdap) 1989 HEPATITIS B VACCINE (1 of 3 - 19+ 3-dose series) 1989 PNEUMOCOCCAL VACCINE 50+ (1 of 1 - PCV) 2020 ZOSTER VACCINE (1 of 2) 2020 COVID-19 VACCINE (1 - 2023-2 5 season) 2024 DEPRESSION SCREENING 11/30/2024 INFLUENZA VACCINE (Season Ended) 2025 HIB VACCINE Aged Out No longer eligi ble based on patient's age to complete this topic HPV VACCINE Aged Out No longer eligi ble based on patient's age to complete this topic MENINGOCOCCAL (Group B) VACC INE SHARED DECISION-MAKING Aged Out No longer eligibl e based on patient's age to complete this topic MENINGOCOCCAL GROUPS A/C/Y/W VACCINE Aged Out No longer eligible b ased on patient's age to complete this topic Care Teams Library Associate Relationship Specialty Start Date End Date Nohemy Bonilla MD [address] [address] PCP - General 12/26/09
--- OUTSIDE RECORDS SUMMARY | 2025-04-26 09:49 | XMS_ITS | Referral Summary ---
Author Organization [facility] [address] Address [address] [place] [address] Care Team Providers Care Food Processor Name Role Phone Katerina Greco NP Primary Care Provider [phone] Social History Tobacco Use Types Packs/Day Years Used Date Smoking Tobacco: Never Assessed Personal Safety Answer Date Recorded Getting School Help Needed Not on file 02/13 Comments Unknown Sex and Gender Information Value Date Recorded Sex Assigned at Not on file Legal Sex Female 1:49 AM WIND ENERGY SYSTEMS INSTALLER Gender Identity Not on file Sexual Orientation Not on file Last Filed Vital Signs Vital Sign Reading Time Taken Comments Blood Pressure 133/93 10/14/2021 8:51 AM WIND ENERGY SYSTEMS INSTALLER Pulse 78 01/19/2017 11:15 AM WIND ENERGY SYSTEMS INSTALLER Temperature 36.6 C (97.9 F) 12/02/2016 8:50 AM WIND ENERGY SYSTEMS INSTALLER Respiratory Rate - - Oxygen Saturation 96% 01/19/2017 11:15 AM WIND ENERGY SYSTEMS INSTALLER Inhaled Oxygen Concentration - - Weight 93.9 kg (207 lb) 01/19/2017 11:15 AM WIND ENERGY SYSTEMS INSTALLER Height 165.1 cm (5' 5) 01/19/2017 11:15 AM WIND ENERGY SYSTEMS INSTALLER Body Mass Index 34.45 01/19/2017 11:15 AM WIND ENERGY SYSTEMS INSTALLER Plan of Treatment Not on file Insurance [facility] FEDERAL Care Teams Food Processor Relationship Specialty Start Date End Date Katerina Greco NP [address] [place] [address] PCP - General Cardiovascular Disease 03/16/24
--- OUTSIDE RECORDS SUMMARY | 2025-04-26 09:49 | XMS_ITS | Encounter Summary ---
Author Organization [facility] Facility Care Team Providers Care Radiographer Mammographer Name Role Phone Brian Fagan MD Primary Care Provider [phone] Katerina Greco NP Primary Care Provider [phone] Encounter Details Date Type Department Care Team (Latest Contact Info) Description 01/01/2017 Orders Only [facility] CLINCONV ProviderTerrie MD [address] [place], [place] [id number] Social History Tobacco Use Types Packs/Day Years Used Date Smoking Tobacco: Never Assessed Comments Unknown Sex and Gender Information Value Date Recorded Sex Assigned at Not on file Legal Sex Female 1:49 AM FINAL DRESSING CUTTER Gender Identity Not on file Sexual Orientation Not on file documented as of this encounter Plan of Treatment Not on file documented as of this encounter Procedures Procedure Name Priority Date/Time Associated Diagnosis Comments CARDIOLOGY REPORT 01/02/2017 12: 00 AM FINAL DRESSING CUTTER documented in this encounter Results * CARDIOLOGY REPORT (01/02/2017 12:00 AM FINAL DRESSING CUTTER) Anatomical Region Laterality Modality Other Narrative 01/02/2017 12:00 AM FINAL DRESSING CUTTER Ordered by an unspecified provider. Historical Provider [facility] Final Result documented in this encounter Visit Diagnoses Not on filedocumented in this encounter Care Teams Radiographer Mammographer Relationship Specialty Start Date End Date Brian Fagan MD [address] [place] [address] PCP - General Internal Medicine 09/26/21 03/15/24 Katerina Greco NP [address] [place] [address] PCP - General Cardiovascular Disease 03/16/24 documented as of this encounter
--- OUTSIDE RECORDS SUMMARY | 2025-04-26 09:49 | XMS_ITS | Encounter Summary ---
Author Organization [facility] Facility Care Team Providers Care Slat Grader Name Role Phone Brian Fagan MD Primary Care Provider [phone] Katerina Greco NP Primary Care Provider [phone] Encounter Details Date Type Department Care Team (Latest Contact Info) Description 01/11/2017 Orders Only [facility] CLINCONV ProviderTerrie MD [address] [place], [place] [phone] Social History Tobacco Use Types Packs/Day Years Used Date Smoking Tobacco: Never Assessed Comments Unknown Sex and Gender Information Value Date Recorded Sex Assigned at Not on file Legal Sex Female 1:49 AM SCALE ATTENDANT Gender Identity Not on file Sexual Orientation Not on file documented as of this encounter Plan of Treatment Not on file documented as of this encounter Procedures Procedure Name Priority Date/Time Associated Diagnosis Comments CARDIOLOGY REPORT 01/11/2017 12: 00 AM SCALE ATTENDANT documented in this encounter Results * CARDIOLOGY REPORT (01/11/2017 12:00 AM SCALE ATTENDANT) Anatomical Region Laterality Modality Other Narrative 01/11/2017 12:00 AM SCALE ATTENDANT Ordered by an unspecified provider. Historical Provider [facility] Final Result documented in this encounter Visit Diagnoses Not on filedocumented in this encounter Care Teams Slat Grader Relationship Specialty Start Date End Date Brian Fagan MD [address] [place] [address] PCP - General Internal Medicine 09/26/21 03/15/24 Katerina Greco NP [address] [place] [address] PCP - General Cardiovascular Disease 03/16/24 documented as of this encounter
--- OUTSIDE RECORDS SUMMARY | 2025-04-26 09:49 | XMS_ITS | CONTINUITY OF CARE DOCUMENT ---
Author Name tamika lundberg Address Unknown Organization [facility] Address [address] [place] [address] Phone [phone] Care Team Providers Care Mosaic Tiler Name Role Phone Latesha Hernandez MD Unavailable NAVIN DURAN, MIGDALIA F Unavailable NAVIN DURAN, MIGDALIA F Unavailable PROBLEMS Condition Status Date Provider Notes CHEST PAIN UNSPECIFIED active Latesha rangel MD SHORTNESS OF BREATH active ? Latesha Cespedes PALPITATIONS active ? Latesha Hernandez MD OBESITY active ? Latesha Hernandez MD ENCOUNTERS Date Type Provider Location Encounter Diag nosis - In-person encounter Office Visit Latesha Hernandez MD [facility] - In-person encounter Office Visit Latesha Hernandez MD [facility] - In-person encounter Office Visit Latesha Hernandez MD [facility] CHEST PAIN UNSPECIFIEDSHORTNESS OF BREATHPALPITATIONSOBESITY VITAL SIGNS Date Observation Value Provider Body Mass Index (Ratio) 32.90 kg/m2 Flavio Cash blood pressure, diastolic, left arm 95 mm [Hg] Guillermo Cash blood pressure, systolic, left arm 125 mm [Hg] Guillermo Cash blood pressure, diastolic, right arm 94 m m[Hg] Guillermo Cash blood pressure, systolic, right arm 135 m m[Hg] Guillermo Manacop blood pressure, diastolic 94 mm[Hg] Talita seph Manacop blood pressure, systolic 135 mm[Hg] Amish eph Manacop pulse rate 66 /min Guillermo Manacop oxygen saturation, oximetry 99 % Guillermo Manacop respiratory rate E&M 16 /min Guillermo Manacop weight E&M 194 [lb_av] Guillermo Soleracop blood pressure, diastolic 73 mm[Hg] Andrea loyola Harris RN blood pressure, systolic 121 mm[Hg] Josh Sarabiaharesh ROSE pulse rate 76 /min Josh Sarabiaharesh ROSE oxygen saturation, oximetry 96 % Josh Sarabiaharesh ROSE respiratory rate E&M 16 /min Josh pradoharesh ROSE Body Mass Index (Ratio) 33.18 kg/m2 Josh Sarabiaharesh ROSE weight E&M 195.6 [lb_av] Josh Sarabiaharesh ROSE height E&M 64.5 [in_i] Josh Sarabiaharesh RSOE Body Mass Index (Ratio) 32.73 kg/m2 Cartwright i Marino blood pressure, diastolic 89 mm[Hg] Randall reyi Marino blood pressure, systolic 135 mm[Hg] Rola Pichardo pulse rate 74 /min Karin armstrong oxygen saturation, oximetry 99 % Karin Pichardo respiratory rate E&M 16 /min Karin walden weight E&M 193 [lb_av] Karin izquierdoer height E&M 64.5 [in_i] Karin armstrong ALLERGIES Allergy Name Onset Date Reaction Criticality Status PCN High Criticality active HISTORY OF MEDICATION USE Medication Status Instructions Dates Provider Indications Com ments MULTIVITAMINS ORAL CAPSULE active take one a day Karin Pichardo FOLIC ACID TABLET active take as directed Karin Pichardo ZYRTEC ALLERGY CAPSULE active take as needed Karin Pichardo SOCIAL HISTORY Date Observation Value Provider social history reviewed E&M reviewed Josh Harris RN exercise type running Guillermo Solerjose raul physical exercise, f requency, days per week 7 /wk Guillermo [place] Studiosjose raul smoking history, tot al pack/year 10 Josh Harris RN smoking, year quit 2005 Josh hutson RN social history E&M Marital Status: Liya d Josh Harris RN caffeine use, averag e drinks per day yes Josh Harris RN smoking status former smoker Josh Loyola social history reviewed E&M reviewed Josh Harris RN social history E&M Marital Status: Liya cespedes Josh Harris RN social history reviewed E&M reviewed Josh Harris RN caffeine use, averag e drinks per day yes Karin Pichardo physical exercise, f requency, days per week yes Karin Pichardo drug use none Karin armstrong passive cigarette sm fernanda exposure no Karin Pichardo smoking history, tot al pack/year 10 Karin Pichardo smoking, year quit 2005 Karin gold smoking status former smoker Karin dickerson MENTAL STATUS Date Observation Value Provider assessment of judgme nt and insight E&M Alert and oriented to time, place and person. Mood and affect are normal. Josh Harris RN assessment of judgme nt and insight E&M Alert and oriented to time, place and person. Mood and affect are normal. Josh Harris RN assessment of judgme nt and insight E&M Alert and oriented to time, place and person. Mood and affect are normal. Josh Harris RN INSURANCE PROVIDERS Payer name Policy type / Coverage type [place] red green party ID BLUE PREFERRED HMO Blue Shield [id number] TREATMENT PLAN Date Name Complete Echo Spirometry Mobile Cardiac Tele Stress Test - Nuclea r HISTORY OF PROCEDURES Procedure Date Procedure Name Provider Procedure Notes S tatus EKG Josh Harris RN completed EKG Latesha Hernandez MD complet ed
--- OUTSIDE RECORDS SUMMARY | 2025-04-26 09:49 | XMS_ITS | Clinical Summary ---
Author Organization [facility] [address] Address [address] [place] [address] Care Team Providers Care Mechanical Technologist Name Role Phone Katerina Greco NP Primary Care Provider Social History Tobacco Use Types Packs/Day Years Used Date Smoking Tobacco: Never Assessed Personal Safety Answer Date Recorded Getting School Help Needed Not on file 02/13 Comments Unknown Sex and Gender Information Value Date Recorded Sex Assigned at Not on file Legal Sex Female 1:49 AM SUGAR GRINDER Gender Identity Not on file Sexual Orientation Not on file Last Filed Vital Signs Vital Sign Reading Time Taken Comments Blood Pressure 133/93 10/14/2021 8:51 AM SUGAR GRINDER Pulse 78 01/19/2017 11:15 AM SUGAR GRINDER Temperature 36.6 C (97.9 F) 12/02/2016 8:50 AM SUGAR GRINDER Respiratory Rate - - Oxygen Saturation 96% 01/19/2017 11:15 AM SUGAR GRINDER Inhaled Oxygen Concentration - - Weight 93.9 kg (207 lb) 01/19/2017 11:15 AM SUGAR GRINDER Height 165.1 cm (5' 5) 01/19/2017 11:15 AM SUGAR GRINDER Body Mass Index 34.45 01/19/2017 11:15 AM SUGAR GRINDER Plan of Treatment Not on file Insurance [facility] FEDERAL Care Teams Mechanical Technologist Relationship Specialty Start Date End Date Katerina Greco NP [address] [place] [address] PCP - General Cardiovascular Disease 03/16/24
--- OUTSIDE RECORDS SUMMARY | 2025-04-26 09:49 | XMS_ITS | Encounter Summary ---
Author Organization [facility] Facility Care Team Providers Care Spring Machine Operator Name Role Phone Brian Fagan MD Primary Care Provider [phone] Katerina Greco NP Primary Care Provider [phone] Encounter Details Date Type Department Care Team (Latest Contact Info) Description 01/03/2017 Orders Only [facility] CLINCONV ProviderTerrie MD [address] [place], [place] [id number] Social History Tobacco Use Types Packs/Day Years Used Date Smoking Tobacco: Never Assessed Comments Unknown Sex and Gender Information Value Date Recorded Sex Assigned at Not on file Legal Sex Female 1:49 AM SALES PRODUCER Gender Identity Not on file Sexual Orientation Not on file documented as of this encounter Plan of Treatment Not on file documented as of this encounter Procedures Procedure Name Priority Date/Time Associated Diagnosis Comments CARDIOLOGY REPORT 01/05/2017 12: 00 AM SALES PRODUCER documented in this encounter Results * CARDIOLOGY REPORT (01/05/2017 12:00 AM SALES PRODUCER) Anatomical Region Laterality Modality Other Narrative 01/05/2017 12:00 AM SALES PRODUCER Ordered by an unspecified provider. Historical Provider [facility] Final Result documented in this encounter Visit Diagnoses Not on filedocumented in this encounter Care Teams Spring Machine Operator Relationship Specialty Start Date End Date Brian Fagan MD [address] [place] [address] PCP - General Internal Medicine 09/26/21 03/15/24 Katerina Greco NP [address] [place] [address] PCP - General Cardiovascular Disease 03/16/24 documented as of this encounter
--- OUTSIDE RECORDS SUMMARY | 2025-04-26 09:49 | XMS_ITS | Encounter Summary ---
Author Organization [facility] Facility Care Team Providers Care Wire Stockkeeper Name Role Phone Brian Fagan MD Primary Care Provider [phone] Katerina Greco NP Primary Care Provider [phone] Encounter Details Date Type Department Care Team (Latest Contact Info) Description 01/09/2017 Orders Only [facility] CLINCONV ProviderTerrie MD [address] [place], [place] [id number] Social History Tobacco Use Types Packs/Day Years Used Date Smoking Tobacco: Never Assessed Comments Unknown Sex and Gender Information Value Date Recorded Sex Assigned at Not on file Legal Sex Female 1:49 AM STEAM PAN SPONGER Gender Identity Not on file Sexual Orientation Not on file documented as of this encounter Plan of Treatment Not on file documented as of this encounter Procedures Procedure Name Priority Date/Time Associated Diagnosis Comments CARDIOLOGY REPORT 01/12/2017 12: 00 AM STEAM PAN SPONGER documented in this encounter Results * CARDIOLOGY REPORT (01/12/2017 12:00 AM STEAM PAN SPONGER) Anatomical Region Laterality Modality Other Narrative 01/12/2017 12:00 AM STEAM PAN SPONGER Ordered by an unspecified provider. Historical Provider [facility] CARDIAC [facility] Final Result documented in this encounter Visit Diagnoses Not on filedocumented in this encounter Care Teams Wire Stockkeeper Relationship Specialty Start Date End Date Brian Fagan MD [address] [place] [address] PCP - General Internal Medicine 09/26/21 03/15/24 Katerina Greco NP [address] [place] [address] PCP - General Cardiovascular Disease 03/16/24 documented as of this encounter
--- OUTSIDE RECORDS SUMMARY | 2025-04-26 09:49 | XMS_ITS | Encounter Summary ---
Author Organization [facility] Facility Care Team Providers Care Exhibits Curator Name Role Phone Brian Fagan MD Primary Care Provider [phone] Katerina Greco NP Primary Care Provider [phone] Encounter Details Date Type Department Care Team (Latest Contact Info) Description 12/30/2016 Orders Only [facility] CLINCONV ProviderTerrie MD [address] [place], [place] [id number] Social History Tobacco Use Types Packs/Day Years Used Date Smoking Tobacco: Never Assessed Comments Unknown Sex and Gender Information Value Date Recorded Sex Assigned at Not on file Legal Sex Female 1:49 AM VIDEOTAPE RECORDING ENGINEER Gender Identity Not on file Sexual Orientation Not on file documented as of this encounter Plan of Treatment Not on file documented as of this encounter Procedures Procedure Name Priority Date/Time Associated Diagnosis Comments CARDIOLOGY REPORT 12/30/2016 12: 00 AM VIDEOTAPE RECORDING ENGINEER documented in this encounter Results * CARDIOLOGY REPORT (12/30/2016 12:00 AM VIDEOTAPE RECORDING ENGINEER) Anatomical Region Laterality Modality Other Narrative 12/30/2016 12:00 AM VIDEOTAPE RECORDING ENGINEER Ordered by an unspecified provider. Historical Provider CV CARDIAC SERVICES [facility]IN ALBA Final Result documented in this encounter Visit Diagnoses Not on filedocumented in this encounter Care Teams Exhibits Curator Relationship Specialty Start Date End Date Brian Fagan MD [address] [place] [address] PCP - General Internal Medicine 09/26/21 03/15/24 Katerina Greco NP [address] [place] [address] PCP - General Cardiovascular Disease 03/16/24 documented as of this encounter
--- OUTSIDE RECORDS SUMMARY | 2025-04-26 09:49 | XMS_ITS | Data Portability ---
Author Organization 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 Patient will come back in a year unless there are new symptoms. [email or web address] Not available 05/02/2022 16:45:43 06/05/2023 06/05/2023 Annual gynecological exam performed. Patient will come back in a year unless there are new symptoms. Suggest Calcium with Vitamin D if not eating in diet. Patient advised to get annual flu shot. Recommend yearly physicals and preform monthly breast exams. Genetic testing is available for patients with family history of cancer. Engage in safe sexual practices, use condoms. Encouraged to have daily exercise. Avoid tobacco and illicit drugs, moderation of alcohol. If BMI greater than 25 dietary consult advised. If you have any questions please call or email. [email or web address] Not available 06/05/2023 14:27:11 10/26/2024 10/26/2024 Annual gynecological exam performed. Patient will come back in a year unless there are new symptoms. Take Calcium with Vitamin D 1200mg daily if not receiving in daily diet. It is strongly advised to have an annual flu shot and up can obtain at most pharmacies. If you have not had a TDap shot in the last 10 years you should obtain one as well. Discussed with patient & provided with information regarding Gardisil vaccine to prevent the 4 strains for HPV that cause cervical cancer if under age 26. Encourage safe sexual practices, to use condoms and limit partners if not already in a monogamous relationship. Do monthly self breast exams. Have mammogram yearly or every other year depending on family history. BRCA testing is now available for patients with strong genetic history of female cancer. If interested contact the office. Engage in daily exercise of low impact aerobic exercise 45-60 minutes 4-5 times weekly. Avoid tobacco and illicit drugs as well as using moderation with alcohol intake less than 1-2 8 oz beverages daily. This lifestyle behavior pattern will lead to less health conditions and longer life span. If BMI greater than 25 weight watchers or dietary consult advised. Patient received above instructions, and questions have been answered. If you have any questions please call or respond to this email. Patient was made aware of the patient portal and may obtain a paper copy of today's plan if desired. mammogram order given refill estradiol, reviewed se risks and benefits continue while having hot flashes Not available 10/26/2024 17:50:50 Plan of Treatment Reminders Order Date Submit Date Provider Last Modified By Organization Details Last Modified Time Details Appointments [facility] 2024 03:15P M Antonieta Mcclendon CNM Not available Not available Not available Lab urinaly sis, dipstic k 2021 [facility], [address], [address], [place], [address], 06/24/2022 10:39:12 CBC w/ auto diff 2021 022 [facility] (Lab), [address], [place], [address], 05/10/2022 02:22:13 CMP, serum or plasma 2021 022 [facility] (Lab), [address], [place], [address], 05/10/2022 02:22:15 lipid panel, blood 2021 022 [facility] (Lab), [address], [place], [address], 05/10/2022 02:22:15 TSH, serum or plasma 2021 [facility] (Lab), [address] [facility], [place], [address], 05/10/2022 02:22:15 vitamin D, 25-hydr oxy, total, serum 2021 [facility] (Lab), [address] [facility], [place], [address], 05/10/2022 02:22:16 HbA1c (hemogl obin A1c), blood 2021 [facility] (Lab), [address] [facility], [place], [address], 05/10/2022 02:22:16 Referral None recorde d. Procedures None recorde d. Surgeries None recorde d. Imaging MAMMO, screeni shasha barkley al 2023 024 [facility], [address], [place], [address], 11/24/2024 21:10:15 MAMMO, screeni shasha barkley al [email or web address] [place] [address] Imaging, [address], [place], [address], 05/15/2022 12:57:23 Medication Orders estradi ol 1 mg tablet 2023 024 [id number], [address], [place], [id number], 10/26/2024 17:51:23 estradi ol 1 mg tablet 2022 023 [facility] #59804, [address], [place], [id number], 06/05/2023 14:29:12 estradi ol 1 mg tablet 2022 023 [id number], [address] [facility], [place], [place], [id number], 04/03/2023 14:28:36 Patient TargetsNo targets recorded. Patient InstructionsNo instructions recorded. Reason for Referral None Reported. Results Created Date Observation Date Name Description Value Unit Range Abnormal Flag Note LastModifiedBy Organization Detail LastModifiedTime 05/09/20 22 05/09/2022 CBC W/DIF F WBC 4.6 10'3/ uL 3.6-10 .2 Not Available [facility] (Lab) [address], [place], [address], 05/10/2022 02:22:11 05/09/20 22 05/09/2022 CBC W/DIF F RBC 4.70 10'6/ uL (based on docume nted legal sex) 4.10-5 .30 Not Available [facility] (Lab) [address], [place], [address], 05/10/2022 02:22:11 05/09/20 22 05/09/2022 CBC W/DIF F HGB 14.6 g/dL (based on docume nted legal sex) 11.9-1 5.8 Not Available [facility] (Lab) [address] [place], [address], 05/10/2022 02:22:11 05/09/20 22 05/09/2022 CBC W/DIF F HCT 44.9 % (based on docume nted legal sex) 37.4-4 8.3 Not Available [facility] (Lab) [address] [place], [address], 05/10/2022 02:22:11 05/09/20 22 05/09/2022 CBC W/DIF F MCV 95.0 fL 82.0-9 9.0 Not Available [facility] (Lab) [address] [place], [address], 05/10/2022 02:22:11 05/09/20 22 05/09/2022 CBC W/DIF F MCH 31.0 pg 27.0-3 3.0 Not Available [facility] (Lab) [address], [place], [address], 05/10/2022 02:22:11 05/09/20 22 05/09/2022 CBC W/DIF F MCHC 33.0 g/dL 32.0-3 6.0 Not Available [facility] (Lab) [address], [place], [address], 05/10/2022 02:22:11 05/09/20 22 05/09/2022 CBC W/DIF F RDW 13.0 % 11.0-1 5.0 Not Available [facility] (Lab) [address], [place], [address], 05/10/2022 02:22:11 05/09/20 22 05/09/2022 CBC W/DIF F plt 279 10'3/ uL 150-45 0 Not Available [facility] (Lab) [address], [place], [address], 05/10/2022 02:22:11 05/09/20 22 05/09/2022 CBC W/DIF F MPV 11.0 fL 9.8-12 .7 Not Available [facility] (Lab) [address], [place], [address], 05/10/2022 02:22:11 05/09/20 22 05/09/2022 CBC W/DIF F NRBC's 0.00 % 0 Not Available [facility] (Lab) [address], [place], [address], 05/10/2022 02:22:11 05/09/20 22 05/09/2022 CBC W/DIF F absolute NRBCs 0.0 10'3/ uL 0 Not Available [facility] (Lab) [address], [place], [address], 05/10/2022 02:22:11 05/09/20 22 05/09/2022 CBC W/DIF F neutrophils 40.0 % 37.0-7 2.0 Not Available [facility] (Lab) [address] [facility], [place], [address], 05/10/2022 02:22:11 05/09/20 22 05/09/2022 CBC W/DIF F lymphocytes 45.0 % 16.0-4 8.0 Not Available [facility] (Lab) [address] [facility], [place], [address], 05/10/2022 02:22:11 05/09/20 22 05/09/2022 CBC W/DIF F monocytes 9.0 % 4.0-14 .0 Not Available [facility] (Lab) [address] [facility], [place], [address], 05/10/2022 02:22:11 05/09/20 22 05/09/2022 CBC W/DIF F eosinophils 4.0 % 0.0-9. 0 Not Available [facility] (Lab) [address] [facility], [place], [address], 05/10/2022 02:22:11 05/09/20 22 05/09/2022 CBC W/DIF F basophils 2.0 % 0.0-2. 0 Not Available [facility] (Lab) [address] [facility], [place], [address], 05/10/2022 02:22:11 05/09/20 22 05/09/2022 CBC W/DIF F immature granulocytes 0.0 % no define d refere nce range Not Available [facility] (Lab) [address] [facility], [place], [address], 05/10/2022 02:22:11 05/09/20 22 05/09/2022 CBC W/DIF F absolute neutrophils 1.8 10'3/ uL 1.1-6. 0 Not Available [facility] (Lab) [address] [facility], [place], [address], 05/10/2022 02:22:11 05/09/20 22 05/09/2022 CBC W/DIF F absolute lymphocytes 2.1 10'3/ uL 0.7-3. 4 Not Available [facility] (Lab) [address] [facility], [place], [address], 05/10/2022 02:22:11 05/09/20 22 05/09/2022 CBC W/DIF F absolute monocytes 0.4 10'3/ uL 0.3-1. 0 Not Available [facility] (Lab) [address] [facility], [place], [address], 05/10/2022 02:22:11 05/09/20 22 05/09/2022 CBC W/DIF F absolute eosinophils 0.2 10'3/ uL 0.0-0. 6 Not Available [facility] (Lab) [address] [facility], [place], [address], 05/10/2022 02:22:11 05/09/20 22 05/09/2022 CBC W/DIF F absolute basophils 0.1 10'3/ uL 0.0-0. 1 Not Available [facility] (Lab) [address] [facility], [place], [address], 05/10/2022 02:22:11 05/09/20 22 05/09/2022 CBC W/DIF F absolute immature granulocytes 0.00 10'3/ uL 0.00-0 .10 2021 12:31 AM: P indic ates parti al resul ts on a panel have been relea sed. Addit ional resul ts will follo w. 2021 12:31 AM: This resul t has been final verif ied. No addit ional or saldaña ed resul ts are expec jacquie. Not Available [facility] (Lab) [address] [facility], [place], [address], 05/10/2022 02:22:11 05/09/20 22 05/09/2022 LIPID PANEL ,AMA (LDL- CALC) total cholesterol 201 mg/dL 0-199 high Not Available [facility] (Lab) [address] [place], [address], 05/10/2022 02:22:15 05/09/20 22 05/09/2022 LIPID PANEL ,AMA (LDL- CALC) triglyceride s 87 mg/dL 0.00-1 50.00 NCEP Refer ence Value s for Trigl yceri tyler: Shaylee l: <150 mg/dL Borde rline High: 150 - 199 mg/dL High: 200 - 499 mg/dL Very High: >/= 500 mg/dL Not Available [facility] (Lab) [address] [place], [address], 05/10/2022 02:22:15 05/09/20 22 05/09/2022 LIPID PANEL ,AMA (LDL- CALC) HDL cholesterol 68 mg/dL >40 Not Available [facility] (Lab) [address] [place], [address], 05/10/2022 02:22:15 05/09/20 22 05/09/2022 LIPID PANEL ,AMA (LDL- CALC) LDL cholesterol 116 mg/dL 0-99 high Cutof f value s recom sy d by the Natio nal Lilia stero l Educa tion Progr am: ANA ABLE: Lilia stero l <200 mg/dL LDL <100 mg/dL BORDE RLINE : Lilia stero l 200-2 39 mg/dL LDL 101-1 59 mg/dL HIGHE R RISK: Lilia stero l >240 mg/dL LDL >160 mg/dL , HDL <40 mg/dL Not Available [facility] (Lab) [address] [place], [address], 05/10/2022 02:22:15 05/09/20 22 05/09/2022 LIPID PANEL ,AMA (LDL- CALC) non-HDL cholesterol 133 mg/dL no refere nce range A reaso nable goal for non-H DL lilia stero l is one that is 30 mg/dL highe r than the LDL lilia stero l goal. Not Available [facility] (Lab) [address] [facility], [place], [address], 05/10/2022 02:22:15 05/09/20 22 05/09/2022 LIPID PANEL ,AMA (LDL- CALC) chol/HDL ratio 3.0 . 0.0-5. 0 Not Available [facility] (Lab) [address] [facility], [place], [address], 05/10/2022 02:22:15 05/09/20 22 05/09/2022 CMP(C OMPRE HENSI VE METAB OLIC PANEL ) sodium 142 mmol/ L 133-14 6 Not Available [facility] (Lab) [address] [facility], [place], [address], 05/10/2022 02:22:15 05/09/20 22 05/09/2022 CMP(C OMPRE HENSI VE METAB OLIC PANEL ) potassium 4.4 mmol/ L 3.5-5. 1 Not Available [facility] (Lab) [address] [facility], [place], [address], 05/10/2022 02:22:15 05/09/20 22 05/09/2022 CMP(C OMPRE HENSI VE METAB OLIC PANEL ) chloride 104 mmol/ L 98-107 Not Available [facility] (Lab) [address] [place], [address], 05/10/2022 02:22:15 05/09/20 22 05/09/2022 CMP(C OMPRE HENSI VE METAB OLIC PANEL ) carbon dioxide 28 mmol/ L 21-31 Not Available [facility] (Lab) [address] [facility], [place], [address], 05/10/2022 02:22:15 05/09/20 22 05/09/2022 CMP(C OMPRE HENSI VE METAB OLIC PANEL ) anion gap 10 mmol/ L 4-13 Not Available [facility] (Lab) [address], [place], [address], 05/10/2022 02:22:15 05/09/20 22 05/09/2022 CMP(C OMPRE HENSI VE METAB OLIC PANEL ) blood urea nitrogen 22 mg/dL 7-25 Not Available [facility] (Lab) [address] [facility], [place], [address], 05/10/2022 02:22:15 05/09/20 22 05/09/2022 CMP(C OMPRE HENSI VE METAB OLIC PANEL ) creatinine 0.90 mg/dL 0.60-1 .30 Not Available [facility] (Lab) [address] [facility], [place], [address], 05/10/2022 02:22:15 05/09/20 22 05/09/2022 CMP(C OMPRE HENSI VE METAB OLIC PANEL ) egfrcr (CKD-epi 2020) 77 mL/mi n/1.7 3_m2 >=60 Not Available [facility] (Lab) [address] [facility], [place], [address], 05/10/2022 02:22:15 05/09/20 22 05/09/2022 CMP(C OMPRE HENSI VE METAB OLIC PANEL ) calcium 9.1 mg/dL 8.3-10 .5 Not Available [facility] (Lab) [address] [facility], [place], [address], 05/10/2022 02:22:15 05/09/20 22 05/09/2022 CMP(C OMPRE HENSI VE METAB OLIC PANEL ) glucose 105 mg/dL 70-100 high Not Available [facility] (Lab) [address] [facility], [place], [address], 05/10/2022 02:22:15 05/09/20 22 05/09/2022 CMP(C OMPRE HENSI VE METAB OLIC PANEL ) protein, total 6.4 g/dL 6.4-8. 3 Not Available [facility] (Lab) [address] [facility], [place], [address], 05/10/2022 02:22:15 05/09/20 22 05/09/2022 CMP(C OMPRE HENSI VE METAB OLIC PANEL ) albumin 4.1 g/dL 3.5-5. 0 Not Available [facility] (Lab) [address] [facility], [place], [address], 05/10/2022 02:22:15 05/09/20 22 05/09/2022 CMP(C OMPRE HENSI VE METAB OLIC PANEL ) ALT 23 units /L 9-43 Not Available [facility] (Lab) [address] [facility], [place], [address], 05/10/2022 02:22:15 05/09/20 22 05/09/2022 CMP(C OMPRE HENSI VE METAB OLIC PANEL ) alkaline phosphatase 52 units /L 34-104 Not Available [facility] (Lab) [address] [facility], [place], [address], 05/10/2022 02:22:15 05/09/20 22 05/09/2022 CMP(C OMPRE HENSI VE METAB OLIC PANEL ) AST 18 units /L 13-39 Not Available [facility] (Lab) [address] [facility], [place], [address], 05/10/2022 02:22:15 05/09/20 22 05/09/2022 CMP(C OMPRE HENSI VE METAB OLIC PANEL ) bilirubin, total 0.5 mg/dL 0.2-1. 2 Not Available [facility] (Lab) [address] [facility], [place], [address], 05/10/2022 02:22:15 05/09/20 22 05/09/2022 TSH, REFLE X FREE T4 TSH 1.68 uIU/m L 0.30-5 .33 Not Available [facility] (Lab) [address] [place], [address], 05/10/2022 02:22:15 05/09/20 22 05/09/2022 VITAM IN D, 25-OH (TOTA L D2/D3 ) vitamin D, 25-hydroxy, total 71.0 NG/mL 30-80 NOTE: Defic iency : <20 ng/mL Insuf ficie ncy: 20-29 ng/mL Optim um Level : 30-80 ng/mL Possi ble Toxic ity: >80 ng/mL Most patie nts with toxic ity have level s >150 ng/mL . Not Available [facility] (Lab) [address] [facility], [place], [address], 05/10/2022 02:22:16 05/09/20 22 05/09/2022 HEMOG LOBIN A1C hemoglobin A1C 5.7 % 0-5.6 high The Ameri can [employer] [facility] [employer] i[employer] n recom mends that a prima ry goal of thera py shoul d be a HBA1C of < 7% and that physi cians shoul d reeva luate the treat ment regim en in patie nts with HBA1C value s consi stent ly > 8%. <5.7% Shaylee l 5.7 - 6.4% Incre ased risk for diabe luca >=6.5 % Diagn ostic of diabe luca <7.0% Goal of thera py >8.0% Actio n sugtavares sterubina Not Available [facility] (Lab) [address], [place], [address], 05/10/2022 02:22:16 06/24/20 22 06/24/2022 CULTU RE: URINE result report SEE RESULT S BELOW abnormal Test: Cultu re: Urine Speci men Sourc e: Urine Voide d Speci men Type: Urine Speci men Date: 2021 10:44 AM Resul t Date: 2021 10:37 PM Resul t Statu s: Final resul t Abnor mal: Yes Resul jitendra Lab: [facility] [address] [facility] [address] Tel: CULTU RE ----- ----- ----- --- >100, 000 CFU/m l Esche shannen a coli (Abno rmal) SUSCE PTIBI LITY ----- ----- ----- --- Esche shannen a coli METHO D SIN ----- ----- ----- ----- ----- ---- ----- ----- ----- ----- ----- AMIKA FREEDOM <=16 ug/mL Susce ptibl e AMPIC ILLIN <=8 ug/mL Susce ptibl e AMPIC ILLIN /SULB ACTAM <=1 ug/mL Susce ptibl e AZTRE ONAM <=4 ug/mL Susce ptibl e CEFAZ BALAJI <=2 ug/mL Susce ptibl e CEFEP JESSICA <=2 ug/mL Susce ptibl e CEFOX ITIN <=8 ug/mL Susce ptibl e CEFTA ZIDIM E <=1 ug/mL Susce ptibl e CEFTR IAXON E <=1 ug/mL Susce ptibl e CIPRO FLOXA FREEDOM <=1 ug/mL Susce ptibl e GENTA MICIN <=1 ug/mL Susce ptibl e LEVOF LOXAC IN <=0.2 5 ug/mL Susce ptibl e MEROP ENEM <=1 ug/mL Susce ptibl e NITRO FURAN TOIN <=32 ug/mL Susce ptibl e PIPER ACILL IN/TA ZOBAC WALTER <=4 ug/mL Susce ptibl e TOBRA MYCIN <=1 ug/mL Susce ptibl e TRIME THOPR IM/FAIR LFAME THOXA ZOLE <=2 ug/mL Susce ptibl e Not Available [facility] [address] [place], [address], 06/26/2022 23:40:39 06/24/20 22 06/24/2022 urina lysis , dipst ick Leukocytes 2+ Not Available Rani ibarra [address], [place], [address], 06/24/2022 10:37:50 06/24/20 22 06/24/2022 urina lysis , dipst ick Nitrite neg Not Available [place] [address], [place], [address], 06/24/2022 10:37:50 06/24/20 22 06/24/2022 urina lysis , dipst ick Urobilinogen neg Not Available [facility] [address], [place], [address], 06/24/2022 10:37:50 06/24/20 22 06/24/2022 urina lysis , dipst ick Protein tr Not Available [place] [address], [place], [address], 06/24/2022 10:37:50 06/24/20 22 06/24/2022 urina lysis , dipst ick pH 5 Not Available [place] [address], [place], [address], 06/24/2022 10:37:50 06/24/20 22 06/24/2022 urina lysis , dipst ick Blood +++ Not Available [place] [address], [place], [address], 06/24/2022 10:37:50 06/24/20 22 06/24/2022 urina lysis , dipst ick Specific [place] 1.015 Not Available [facility] [address], [place], [address], 06/24/2022 10:37:50 06/24/20 22 06/24/2022 urina lysis , dipst ick Ketone neg Not Available [place] [address], [place], [address], 06/24/2022 10:37:50 07/26/20 22 06/24/2022 urina lysis , dipst ick Bilirubin 1+ Not Available [facility] [address], [place], [address], 06/24/2022 10:37:50 06/24/20 22 06/24/2022 urina lysis , dipst ick Glucose neg Not Available [place] [address], [place], [address], 06/24/2022 10:37:50 06/24/20 22 06/24/2022 urina lysis , dipst ick Appearance cloudy Not Available [facility] [address], [place], [address], 06/24/2022 10:37:50 06/24/20 22 06/24/2022 urina lysis , dipst ick Color dark yellow Not Available [place] [address], [place], [address], 06/24/2022 10:37:50 09/10/20 22 09/10/2022 MAMMO , scree genna, bilat eral No observ ation [facility] ed. [facility] [place] [facility] [address], [place], [address], 04/09/2023 12:07:47 09/10/20 22 09/10/2022 MAMMO , scree genna, bilat eral No observ ation record ed. [email or web address] [place] [address], [place], [address], 06/22/2023 11:51:38 09/10/20 22 09/10/2022 MAMMO , scree genna, bilat eral No observ ation record ed. [email or web address] [facility] [address], [place], [address], 04/09/2023 12:08:16 09/14/20 23 09/14/2023 MAMMO , scree genna, digit al, bilat eral No observ ation record ed. [facility] [address], [place], [address], 09/16/2023 06:55:02 11/24/20 24 11/24/2024 MAMMO , scree genna, bilat eral No observ ation record ed. [facility] [address], [place], [address], 11/25/2024 11:09:07 Result Notes None recorded. Problems Name Problem SNOMED Code Status Onset Date Resolution Date Notes Provider Name and Address Organization Details Recorded Time Urinary tract infectio us disease 67122949 Completed 201304/15/2021 Urinary Tract Infectio n;Record ed Elsewher e: No [facility] our[facility]: [employer] fernando: N Dilcia ce ID: [id number] Leonard lable Time: 04:45:00 PM Nohemy hartman [facility] 17:53:17 Menopaus e present [id number] Completed 201704/15/2021 vasomoto r sx;Recor ded Elsewher e: No Locat ion: [facility] S ource: [employer] fernando: Prashanth Ha ce ID: [id number] Leonard lable Time: 03:30:00 PM Nohemy hartman [facility] 17:52:52 Menstrua tion finding Completed 201204/15/2021 Excessiv e or frequent menstrua tion;Rec orded Elsewher e: No Locat ion: [facility] S ource: [employer] fernando: N Dilcia ce ID: [id number] Leonard lable Time: 08:15:00 AM Nohemy hartman [facility] 05/17/202 1 17:52:54 Uses IUD (intraut erine device) contrace ption [id number] Completed 201204/15/2021 Surveill ance of intraute rine contrace ptive device;R ecorded Elsewher e: No [facility]: [facility] [employer] fernando: N Dilcia ce ID: [id number] Leonard lable Time: 03:15:00 PM Nohemy Giordano [facility] [address] 17:52:[address] Concept Completed 201604/15/2021 Encntr for general adult medical exam w/o abnormal findings ;Recorde d Elsewher e: No Locat ion: [facility]: N Dilcia ce ID: [id number] Leonard lable Time: 01:30:00 PM Nohemy Giordano [facility] 1 17:53:07 Dysfunct ional uterine bleeding Completed 201204/15/2021 Other disorder s of menstrua tion and other abnormal bleeding from female genital tract;Re corded Elsewher e: No [facility]: N Dilcia ce ID: [id number] Leonard lable Time: 09:15:00 AM Nohemy Giordano [facility] 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 1 17:53:09 Irregula r intermen strual bleeding [id number] Completed 201204/15/2021 Metrorrh agia;Rec orded Elsewher e: No Locat ion: [facility] S ource: [employer] fernando: N Practi ce ID: [id number] Leonard lable Time: 02:15:00 PM Nohemy hartman, [facility] 17:52:45 Screenin g for malignan t neoplasm of rectum Completed 201604/15/2021 Encounte r for screenin g for malignan t neoplasm of rectum;R ecorded Elsewher e: No [facility]at [facility] N Practi ce ID: [id number] Leonard lable Time: 01:30:00 PM Nohemy Giordano [facility], [facility] 17:53:06 Speciali zed medical examinat ion Completed 201304/15/2021 Gynecolo gical Examinat ion;Panchito rded Elsewher e: No [facility]at [facility] N Practi ce ID: [id number] Leonard lable Time: 01:30:00 PM Nohemy Giordano minnie [facility] 17:53:14 Hirsutis m [id number] Completed 201504/15/2021 Hirsusherice m;Record ed Elsewher e: No Locat ion: [facility] N Practi ce ID: 0001 Leonard lable Time: 02:45:00 PM Nohemy hartman [facility] 17:52:40 Insertio n of intraute rine contrace ptive device Completed 201204/15/2021 INSERTIO N OF IUD;Panchito rded Elsewher e: No Locat ion: [facility] S ource: [facility] [employer] fernando: N Practi ce ID: 0001 Leonard lable Time: 03:00:00 PM Nohemy Giordano minnie [facility] 17:52:43 Dispropo rtion of reconstr ucted breast [id number] Completed 201804/15/2021 Dispropo rtion of reconstr ucted breast;R ecorded Elsewher e: No Locat ion: [facility] S ource: [facility] [employer] fernando: N Renati ce ID: 0001 Leonard lable Time: 09:45:49 AM Nohemy hartman, [facility] 17:52:29 Dysmenor carmen [id number] Completed 201204/15/2021 Dysmenor carmen;Rec orded Elsewher e: No Locat ion: [facility] S ource: [facility] [employer] fernando: N Renati ce ID: 0001 Leonard lable Time: 08:30:00 AM Nohemy hartman, [facility] 17:52:32 Pregnanc y test negative [id number] Completed 201204/15/2021 Pregnanc y examinat ion or test, negative result;R ecorded Elsewher e: No Locat ion: [facility] S ource: [facility] [employer] fernando: N Dilcia ce ID: 0001 Leonard lable Time: 03:00:00 PM Nohemy hartman, [facility] 17:52:58 Finding of general energy [id number] Completed 201504/15/2021 Fatigue; Recorded Elsewher e: No Locat ion: [facility] S ource: [facility] [employer] fernando: N Renati ce ID: 0001 Leonard lable Time: 02:45:00 PM Nohemy hartman, [facility] 17:52:38 Postoper ative follow-u p visit Completed 201304/15/2021 Follow-u p examinat ion, followin g unspecif ied surgery; Recorded Elsewher e: No Locat ion: [facility] S ource: [facility] fernando: Y Dilcia ce ID: 0001 Leonard lable Time: 04:45:00 PM Nohemy hartman [facility] 17:52:56 Screenin g for malignan t neoplasm of cervix Completed 201304/15/2021 Screenin g for malignan t neoplasm s of the cervix;R ecorded Elsewher e: No Locat ion: [facility] S ource: [facility] [employer] fernando: Y Practi ce ID: 0001 Leonard lable Time: 01:30:00 PM Nohemy hartman, [facility] 17:53:02 Dyspareu julio [id number] Completed 201204/15/2021 Dyspareu julio;Panchito rded Elsewher e: No Locat ion: [facility] S ource: [facility] fernando: N Practi ce ID: 0001 Leonard lable Time: 08:15:00 AM Nohemy Giordano minnie, [facility] 17:52:34 Premenop ausal menorrha kimberly Completed 201204/15/2021 Premenop ausal menorrha kimberly;Panchito rded Elsewher e: No Locat ion: [facility] S ource: [facility] fernando: N Practi ce ID: 0001 Leonard lable Time: 08:30:00 AM Nohemy hartman [facility] 17:53:00 Menopaus al symptom [id number] Completed 201204/15/2021 Menopaus al or female climacte chano states;R ecorded Elsewher e: No Locat ion: [facility] S ource: [facility] fernando: N Practi ce ID: 0001 Leonard lable Time: 08:30:00 AM Nohemy hartman [facility] 17:52:50 Evaluati on finding [id number] Completed 201804/15/2021 Oth abn and inconclu sive findings on dx imaging of breast;R ecorded Elsewher e: No Locat ion: [facility] S ource: [facility] [employer] fernando: N Practi ce ID: 0001 Leonard lable Time: 09:45:49 AM Nohemy hartman [facility] 17:52:27 Body mass index 30+ - obesity 151310020 Completed 201604/15/2021 Body mass index (BMI) 34.0-34. 9, adult;Re corded Elsewher e: No Locat ion: Fazal dyer [facility] S ource: [employer] fernando: N Practi ce ID: 0001 Leonard lable Time: 01:30:00 PM Nohemy hartman [facility] 17:52:25 Uterine leiomyom a [id number] Completed 201304/15/2021 Leiomyom a of uterus, unspecif ied;Prac lilo ID: 0001 Nohemy hartman [facility] 17:53:20 Dysuria [id number] Completed 201604/15/2021 Dysuria; Practice ID: 0001 Nohemy hartman [facility] 17:52:36 Problem Notes None recorded. Procedures Surgical History Date Name Laterality Status Provider Name and Address Organization Details Recorded Time 10/26/20 24 Date of Last Pap Smear completed Nohemy Giordano [facility] 10/26/2024 16:43:40 09/10/20 22 Date of Last Mammogram completed Nohemy Giordano [facility] 06/05/2023 10:56:28 06/27/20 20 completed Sydniemasood Whittaker [facility] 04/16/2021 11:36:20 05/10/20 14 Total Hysterectomy completed [facility] 04/03/2023 14:28:57 07/22/20 13 endometrial biopsy completed Nhoemy Giordano [facility] 04/15/2021 17:46:14 11/30/19 08 cervical polypectomy completed [facility] 04/15/2021 17:43:44 11/30/19 07 Knee arthroscopy/surg john completed [facility] 04/15/2021 17:40:37 11/30/19 04 procedure on wrist completed [facility] 04/15/2021 17:39:57 11/30/19 03 procedure on wrist completed [facility] 04/15/2021 17:39:36 11/30/18 91 Breast reduction completed [facility] 04/15/2021 17:38:30 Imaging Results None recorded. Procedure Notes None recorded. Medical Equipment None Reported. Allergies Allergen ID Allergen Name Allergen Category Reaction Reaction Severity Criticality Documentation Date Start Date Code Code System Note Provider Name and Address Organization Details Recorded Time 77460 Product containin g penicilli n (product) medicatio n Not available Not available Not available 11/16/2020 31356 8001 SNOMED Comme nt: [facility]at [facility]; Not Available [facility] 14:20:45 Medications Name Sig Start Date Stop Date Status Note LastModified by Organization Details LastModified Time prednison e 10 mg tablet TAKE 1 TABLET BY MOUTH DAILY 01/15 completed Not Available Not Available Not Available azithromy freedom 250 mg tablet TAKE 2 TABLETS BY MOUTH FOR 1 DAY THEN TAKE 1 TABLET BY MOUTH DAILY FOR 4 DAYS 01/15 completed Not Available Not Available Not Available valacyclo vir 1 gram tablet TAKE 2 TABLETS BY MOUTH EVERY 12 HOURS active Not Available Not Available No t Available sumatript an 100 mg tablet TAKE 1 TABLET AT THE ONSET OF HEADACHE . IF NO RELIEF MAY REPEAT 1 TABLET AFTER AT LEAST 2 HOURS. MAX 2 TABLETS IN 24 HOURS active Not Available Not Available No t Available prednison e 20 mg tablet TAKE 1 TABLET BY MOUTH TWICE DAILY 04/03 completed Not Available Not Available Not Available Excedrin Migraine 250 mg-250 mg-65 mg tablet 06/28 completed Prescrib ed Elsewher e: Yes Loca tion: Fazal dyer [facility] odify By: wen Lawrence r DateTime : 06/21/20 13 08:30:00 AM Not Available Not Available Not Available folic acid 20 mg capsule active Prescrib ed Elsewher e: Yes Loca tion: Fazal dyer [facility] odify By: wen Lawrence r DateTime : 06/21/20 13 08:30:00 AM Not Available Not Available Not Available sumatript an 50 mg tablet TAKE 1 TABLET BY MOUTH AT ONSET OF HEADACHE MAY REPEAT IN 2 HOURS IF NO RELIEF 10/26 completed Not Available Not Available Not Available acyclovir 400 mg tablet TAKE 1 TABLET BY MOUTH THREE TIMES DAILY 10/26 completed Not Available Not Available Not Available liothyron ine 5 mcg tablet take 1 tablet by oral route every day 02/04 completed Prescrib ed Elsewher e: Yes Loca tion: Fazal dyer [facility] odify By: megan davis DateTime : 06/15/20 01:30:00 PM Not Available Not Available Not Available levothyro xine 25 mcg tablet take 1 tablet by oral route every day 02/04 completed Prescrib ed Elsewher e: Yes Loca tion: Fazal dyer [facility] odify By: megan davis DateTime : 06/15/20 01:30:00 PM Not Available Not Available Not Available progester one 50 mg/mL intramusc ular oil inject 0.1 millilit er by intramus cular route every day 02/04 completed Prescrib ed Elsewher e: Yes Loca tion: Fazal dyer [facility] odify By: megan davis DateTime : 06/15/20 17 01:30:00 PM Not Available Not Available Not Available Metrogel Vaginal 0.75 % (37.5 mg/5 gram) insert 1 applicat orful by vaginal route every day at bedtime 05/22 completed Prescrib ed Elsewher e: No Locat ion: Fazal dyer [facility] odify By: tawrigle y Encoun ter DateTime : 05/08/20 14 10:00:00 AM Not Available Not Available Not Available estradiol 1 mg tablet TAKE 1 TABLET BY MOUTH EVERY DAY 2023 active Not Available Not Available Not Avai lable benzonata te 100 mg capsule TAKE 1 CAPSULE BY MOUTH THREE TIMES DAILY NEEDED FOR COUGH 10/26 completed Not Available Not Available Not Available Cipro 500 mg tablet take 1 tablet by oral route every 12 hours 06/19 completed Prescrib ed Elsewher e: No Locat ion: [facility] odify By: laura Dyer ncounter DateTime : 05/22/20 14 04:45:00 PM Not Available Not Available Not Available Motrin 100 mg/5 mL oral suspensio n take 10 millilit er by oral route every 6 hours as needed with food 06/28 completed Prescrib ed Elsewher e: Yes Loca tion: [facility] odify By: yesica hwangunter DateTime : 02/28/20 14 01:30:00 PM Not Available Not Available Not Available progester one micronize d 200 mg capsule TAKE 1 CAPSULE BY MOUTH EVERY DAY AT BEDTIME 04/03 completed Not Available Not Available Not Available azelastin e 137 mcg (0.1 %) nasal spray USE 2 SPRAYS IN EACH NOSTRIL TWICE DAILY 04/03 completed Not Available Not Available Not Available methylpre dnisolone 4 mg tablets in a dose pack FOLLOW PACKAGE DIRECTIO NS 10/26 completed Not Available Not Available Not Available multivita min capsule take 1 capsule by oral route every day active Prescrib ed Elsewher e: Yes Loca tion: [facility] odify By: jjkline Howard rangel DateTime : 06/21/20 13 08:30:00 AM Not Available Not Available Not Available fluticaso ne propionat e 50 mcg/actua tion nasal spray,domenica pension SHAKE LIQUID AND USE 1 SPRAY IN EACH NOSTRIL DAILY active Not Available Not Available No t Available doxycycli ne hyclate 100 mg tablet TAKE 1 TABLET BY MOUTH EVERY 12 HOURS FOR 7 DAYS 04/03 completed Not Available Not Available Not Available Bactrim DS 800 mg-160 mg tablet take 1 tablet by oral route every 12 hours 06/15 completed Prescrib ed Elsewher e: No Locat ion: Olivier manisha [facility] odify By: laura whitehead DateTime : 03/10/20 17 04:45:00 PM Not Available Not Available Not Available nitrofura ntoin monohydra te/macroc rystals 100 mg capsule TAKE ONE CAPSULE BY MOUTH EVERY TWELVE HOURS WITH FOOD 10/26 completed Not Available Not Available Not Available magnesium active Not Available Not Malou ilable Not Available Vitamin D active Not Available Not Amlou ilable Not Available dietary supplemen t 06/05 completed AMBEREN Not Available Not Available Not Available Calcium Plus 600 mg-10 mcg (400 unit) tablet 2015 active Prescrib ed Elsewher e: Yes Loca tion: Fazal dyer [facility] odify By: laura whitehead DateTime : 03/27/20 16 02:45:00 PM Not Available Not Available Not Available Zyrtec 10 mg capsule active Prescrib ed Elsewher e: Yes [facility] By: jjkgabbie Lawrence r DateTime : 06/21/20 13 08:30:00 AM Not Available Not Available Not Available ID NOW COVID-19 Test Kit TEST DIRECTED TODAY 06/05 completed Not Available Not Available Not Available BinaxNOW COVID-19 Ag Self Test kit TEST DIRECTED TODAY 06/05 completed Not Available Not Available Not Available Vitals Date Recorded Body height Body mass index (BMI) Body weight Systolic blood pressure Diastolic blood pressure Provider Name and Address Organization Details Last Updated DateTime 04/03/2023 160.02 cm 38.8 kg/m2 30154.73 g 134 mm[Hg] 86 mm[Hg] Sydnie Whittaker [facility] 3 14:19:07 Date Recorded Body height Body mass index (BMI) Body weight Systolic blood pressure Diastolic blood pressure Provider Name and Address Organization Details Last Updated DateTime 05/05/2022 160.02 cm 37.9 kg/m2 42323.77 g 128 mm[Hg] 76 mm[Hg] Doris Banuelos [facility] 2 14:32:21 Date Recorded Body height Body mass index (BMI) Body weight Systolic blood pressure Diastolic blood pressure Provider Name and Address Organization Details Last Updated DateTime 06/05/2023 160.02 cm 38.1 kg/m2 22160.36 g 147 mm[Hg] 90 mm[Hg] Nohemy Giordano [facility] 3 14:13:38 Date Recorded Body height Provider Name an d Address Organization Details Last Updated DateTime 06/24/2022 160.02 cm Catia Morrow [facility] 06/24/2022 10:37:04 Date Recorded Body height Body mass index (BMI) Body weight Systolic blood pressure Diastolic blood pressure Provider Name and Address Organization Details Last Updated DateTime 10/26/2024 160.02 cm 37.4 kg/m2 76493.99 g 132 mm[Hg] 84 mm[Hg] Nohemy Giordano [facility] 4 16:42:46 Social History Question Answer Notes LastModified by Organizat ion Details LastModified Time Tobacco Smoking Status Never Smoker Nohemy Giordano [facility], [facility] 01/15/2022 14:17:13 Do You Have An Advance Directive? No [email or web address] Information n ot available 01/15/2022 If You Are , What Was Your Level Of Alcohol Consumption Prior To ? None [email or web address] Information not available 01/15/2022 How Many Years Have You Consumed Alcohol? 30 [email or web address] Information not available 01/15/2022 Are You Blind Or Do You Have Difficulty Seeing? No [email or web address] Information n ot available 06/28/2021 What Is Your Level Of Caffeine Consumption? Occasional [email or web address] Information not available 06/28/2021 How Much Tobacco Do You Chew? None [email or web address] Information not available 01/15/2022 In The 14 Days Before Symptom Onset, Have You Had Close Contact With A Laboratory-confirm ed COVID-19 While That Case Was Ill? No [email or web address] Information n ot available 06/28/2021 In The 14 Days Before Symptom Onset, Have You Had Close Contact With A Person Who Is Under Investigation For COVID-19 While That Person Was Ill? No Information not available 06/28/2021 Have You Been To An Area Known To Be High Risk For COVID-19? No [email or web address] Information not available 06/28/2021 Are You Deaf Or Do You Have Serious Difficulty Hearing? No [email or web address] Information not available 06/28/2021 What Type Of Diet Are You Following? REGULAR [email or web address] Information n ot available 06/28/2021 What Is The Highest Grade Or Level Of School You Have Completed Or The Highest Degree You Have Received? IA43936-1 [email or web address] Information not available 01/15/2022 Are There Any Guns Present In Your Home? No [email or web address] Information not available 01/15/2022 Do You Use Protection During Sex? No [email or web address] Information not available 01/15/2022 Do You Use Your Seat Belt Or Car Seat Routinely? Yes Information not available 06/28/2021 Do You Have Smoke And Carbon Monoxide Detectors In Your Home? Yes [email or web address] Information not available 06/28/2021 How Much Tobacco Do You Smoke? No [email or web address] Information not available 01/15/2022 Do You Use Sunscreen Routinely? Yes [email or web address] Information not available 06/28/2021 Has Tobacco Cessation Counseling Been Provided? No [email or web address] Information not available 01/15/2022 Have You Used IV Drugs? No [email or web address] Information not available 01/15/2022 Do You Have Difficulty Walking Or Climbing Stairs? No [email or web address] Information not available 01/15/2022 Sex: Unknown Functional Status Question Answer Note LastModified by Organizat ion Details LastModified Time Do you use any illicit or recreational drugs? No [email or web address] Information not available 06/28/2021 Do you or have you ever used any other forms of tobacco or nicotine? No [email or web address] Information not available 01/15/2022 What is your level of alcohol consumption? Occasional [email or web address] Information not available 06/28/2021 Are you able to walk? YESWOREST [email or web address] Information not available 06/28/2021 Are you able to care for yourself? 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 No [email or web address] Information not available 01/15/2022 What is your exercise level? Moderate [email or web address] Information not available 01/15/2022 Mental Status Question Answer Note LastModified by Organization D etails LastModified Time Do you feel stressed (tense, restless, nervous, or anxious, or unable to sleep at night)? [id number] [email or web address] Information not available 01/15/2022 Family History Relationship Description Onset Age of this Age Resolved Age Notes LastModified by Organization Details LastModified Time Mother Malignant tumor of breast 30 [email or web address] Not available 01/15 14:17:12 Mother Diabetes mellitus [email or web address] Not available 04/15 17:37:26 Mother Malignant tumor of cervix [email or web address] Not available 04/15 17:37:40 Mother Female infertility [email or web address] Not available 14:17:12 Father Diabetes mellitus [email or web address] Not available 04/15 17:37:47 Father Malignant melanoma of skin 20 Moles from 20yo-4 0yo [email or web address] Not available 01/15/2022 14:17:12 Medical History Condition Response Allergies (Food, seasonal, environmental ) Y Other N Drug/Latex Allergies/Reactions N Blood Transfusion N Breast Cancer N Dermatologic Disorders N Lung Disease N Defects or Inherited Disease N Breast Problem Y Gestational Diabetes N Hematologic disorders N Anesthesia Complications N History of STI Y Deep Vein Thrombosis N Polycystic ovary syndrome N Anxiety Disorder N Autoimmune disease N Arthritis N Polyps Y Infertility N Acid Reflux (GERD) Y History of abnormal pap N Cancer N Varicosities N Stroke N Neurologic/Epilepsy N Endometriosis N High Cholesterol N Fibromyalgia N Headaches Y Kidney Disease N Heart Problems N Thyroid Problems N Kidney or Bladder Problems N GI Problems N Eating Disorder N Anemia N Art (IVF or FET) N Psychiatric Illness N Ovarian Cancer N Diabetes N Pulmonary (TB, Asthma) N Hepatitis/Liver Disease N No Past Medical History N Eczema N Urinary Tract Infection N Abuse/Domestic Violence N Asthma N Trauma/Violence N Depression/ depression N Heart Disease N Pre-Eclampsia N Hypertension N Osteoporosis N Thrombophilias N Gynecological History Statement/Question Response Date of Last Mammogram 09/10/2022 Date of LMP 11/30/2013 N Was last menstrual period normal N STIs/STDs Y 06/27/2020 If Post Menopausal, Age at Menopause 35 Date of control 11/30/2013 Date of Last Colonoscopy Sterilization Desired Control Method Sterilizati on Abnormal Pap N On BCP's at Conception? N HPV Vaccine N Duration of Flow (days) 28 Current Control Method Hysterectom y Age at First Child 33 Frequency of Cycle (Q days) 7 Sexually Active? N Date of DEXA bone scan Age of first menstrual cycle 11 Date of Last Pap Smear 10/26/2024 Sexual Problems? Y LMP Approximate N Obstetrics History GPAL:G 3 P 2 1 0 3 Type Value Full Term 2 Premature 1 Living 3 Total 3 Past Encounters Encounter ID Performer Location Encounter Start Date Encounter Closed Date Diagnosis/Indication Diagnosis SNOMED-CT Code Diagnosis ICD10 Code Diagnosis Note [id number] Antonieta Mcclendon [facility] [address],[place] [address] 04/16/2021 11:27:57 04/16/2021 12:47:27 Gynecologic examination 17434081 Z01.419 [id number] Antonieta Mcclendon [facility] [address],[place] [address] 06/28/2021 11:12:06 06/28/2021 13:31:53 Overweight 400044713 E66.3 [id number] Antonieta Mcclendon [facility] [address],[place] [address] 01/15/2022 14:02:10 01/15/2022 15:47:30 Menopausal symptom 07510732 N95.1 check labs, consider hRT to help with sxs, f/u wwe in may 2022 Weight gain 0055241 R63. 5 [address] be[address]its and see Dr. Nagy [id number] El Nagy MD [place] [address],[place] [address] 01/21/2022 14:17:55 01/23/2022 13:50:59 Obesity 940353738 E66.9 This patient is a 51-year-ol d female now with class 2 obesity. She needs a sleep study due to her severe sleep apnea risk. 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 We are going to start hormone replacemen t therapy. We are going to get some slightly more detailed labs. The common labs have already been completed. Her sex hormones were clearly menopausal . We spent more than hour face-to-fa ce. More than 50% of that was counseling . We took a very detailed history. We talked about obesity and is treatment. We talked about energy consumptio n expenditur e. We talked about metabolism . We performed body compositio n testing and discuss those results. We agreed to come together in 2 weeks when all these items were completed. She may not be interested in weight loss medication s. Menopausal symptom 80264 002 E89.41 [id number] El Nagy MD [facility] [address],[place] [address] 02/11/2022 14:53:17 02/17/2022 14:12:54 Obesity 823512080 E66.9 This patient is a 51-year-ol d female presents for follow-up on weight management . Reviewed her laboratory evaluation . We do have reviewed her visit with the dietitian. We discussed her energy expenditur e and her exercise levels. We spent over 25 minutes face-to-fa ce. We talked about medication s again. She is going to hold off on medication s at this time. She has experience d some moderate weight loss. Her menopausal symptoms are improved. She has not completed her sleep study at. She is in contact with the [facility]. She return here in 2 weeks to further discuss her progress and additional therapy. she is believed to have severe sleep apnea. Encouraged following up on the study. [id number] CORIN Juarez [place] [address] [address] 05/05/2022 13:59:15 05/05/2022 16:50:04 Screening for malignant neoplasm of breast 874834847 Z12.39 Gynecologi c examination 05013537 Z01.419 Take Calcium with Vitamin D 12-1500mg daily. Do monthly self breast exams. It is advised to get annual flu shot in the fall and she could obtain at [facility] or [facility] care clinic. If you haven't received the Tdap vaccine in the last 10 years you should obtain one as well. Have mammogram yearly, bone density every 2-3 years and colonoscop y every 5-10 years depending on findings and history. Engage in daily exercise of low impact aerobic exercise 45-60 minutes 4-5 times weekly. Avoid tobacco and illicit drugs as well as using moderation with alcohol intake less than 1-2 8 oz beverages daily. This lifestyle behavior pattern will lead to less health conditions and longer life span. If BMI greater than 25 weight watchers or dietary consult advised. Questions have been answered. Patient appears to understand instructio ns, but if you have any further questions call or respond to this email WWEHx of hyst 2013, ovaries remain. Hyst for AUB, non-cancer ous reasons per patientLas t pap 2013, normal. Had a hx of abnormal pap smear years ago with colposcopy , did not require a procedure. On estrogen 1mg daily for relief of hot flashes/ni ght sweats. This is helping her greatly. No hx of DVT/PE, HTN, liver disease, cancer, stroke/CT. Risk of benefits of ERT discussed and accepted by patient.Pe lvic exam declinedST I testing declinedMa mmogram order givenHas not had a colonoscop y, she is not ready to have this. I educated on benefits of colonoscop y for colon cancer screening. We discussed may be a candidate for cologuard but would need to discuss that with PCP if she does not want a colonoscop y. Patient agrees.Wou ld like routine labs orderedRTC in 1 year for WWE or sooner if needed [id number] CORIN Juarez [place] [address] [address] 06/24/2022 10:14:36 06/24/2022 14:38:55 Urinary symptoms [id number] R39.9 Patient here for urinary symptoms, burning, frequency, urgency.UA with 2+ leuks, 3+ bloodPatie nt opts to treat now, culture sentMacrob id BID x 5 days sent [id number] El Nagy MD [place] [address] [address] 04/03/2023 13:53:56 04/03/2023 14:46:06 Menopausal symptom 90753347 E89.41 52-year-ol d female presents for follow-up on menopause symptoms. She is treated have very intense menopausal symptoms again. She has been taking 1 mg of estradiol. . We spent 20 minutes face-to-fa ce. More than 50% was counseling . We talked continued hormone replacemen t therapy we talked about hormonal testing/qu antificati on. We agreed to increase to 2 mg and then consider tapering down to 1.5. She will follow-up as needed. [id number] Antonieta Mcclendon [facility] [address],[facility] [address] 06/05/2023 13:57:37 06/05/2023 14:29:41 Gynecologic examination [id number] Z01.419 N95.1 Z83.3 Menopausal symptom 91180 002 N95.1 [id number] Antonieta Mcclendon [facility] [address],[facility] [address] 10/26/2024 16:17:22 10/28/2024 07:08:57 Screening mammography [id number] Z12.31 Menopausal symptom 83010 002 N95.1 Gynecologi c examination [id number] Z01.419 N95.1 Z83.3 Health Concerns Section Related Observation LastModified by Organization Detai ls LastModified Time None Recorded Concern Status LastModified by Organization Details LastModified Time None Recorded Advance Directives Directive N: Payers Encounter Date Sequence Insurance Name Policy Number Policy Felix Covered Member ID Felix Member ID Guarantor Name 05/05/2022 1 [place] 105 Meche Newton [id number] Meche Newton 06/24/2022 1 [place] 105 Meche Newton [id number] Mechejoão Newton 06/24/2022 2 [place] [employer] [place] [id number] Meche Newton 04/03/2023 1 [place] 105 Meche Newton [id number] Meche Newton 06/05/2023 1 [place] 105 Meche Newton [id number] Meche Newton 10/26/2024 1 [place] 105 Meche Newton [id number] Meche Newton Notes Date Note Type Note Provider Name and Address Organization Details Recorded Time 05/05/2022 text/html Annual 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 Manager Post-MenopausalRe ported bypatient.Menopau kaushik Symptoms:no menopausal symptoms; normal vaginal lubrication Vaginal Bleeding:history of menopause having occurred; no history of post menopausal bleeding Urinary Symptoms:no hematuria; no incontinence; no nocturia; no urinary frequency Vulva:no genital lesion; no vulvar atrophy Vagina:normal vaginal discharge; no vaginal atrophy Breast:no breast lump; no nipple discharge; no breast pain Sexual Complaints:no sexual complaints Psychological Symptoms:no depression; no anxiety Preventive Measures:encourag e regular mammograms starting age 40; encourage self breast examination; encourage regular exercise; encourage no tobacco use; needs to schedule mammogram; needs to schedule colonoscopy CORIN Juarez [address], [place], [address], [facility] 05/05/2022 15:34:11 04/03/2023 text/html 52-year-old female presents for follow-up on menopause symptoms. She is treated have very intense menopausal symptoms again. She has been taking 1 mg of estradiol. . We spent 20 minutes yoog-al-xnxz. More than 50% was counseling. We talked continued hormone replacement therapy we talked about hormonal testing/quantific ation. We agreed to increase to 2 mg and then consider tapering down to 1.5. She will follow-up as needed. El Nagy MD [address], [place], [address], [facility] 04/03/2023 14:45:24 06/05/2023 text/html Annual GYNReported bypatient.History :no gynecologic complaints; no change in interval history Breast:No breast pain; No breast lump; No nipple discharge Sexual complaints:No sexual complaints; No pain during intercourse; Normal libido Menopausal Symptoms:No menopausal symptoms; Normal vaginal lubrication Psychological symptoms:No depression; No anxiety; No PMDD Preventive measures:Encourag e self breast examination; Encourage regular exercise; Encourage no tobacco use; Encourage regular mammograms starting age 40Notes:hysterect roman 2014, happy with estradiol 1 mg daily Antonieta Mcclendon CNM [address], [place], [address], [facility] 06/05/2023 14:29:17 10/26/2024 text/html Annual GYNReported bypatient.History :no gynecologic complaints Menstrual cycle:hysterectom y Breast:No breast pain; No breast lump; No nipple discharge Sexual complaints:No sexual complaints; No pain during intercourse; Normal libido Menopausal Symptoms:No menopausal symptoms; Normal vaginal lubrication Psychological symptoms:No depression; No anxiety; No PMDD Preventive measures:Encourag e self breast examination; Encourage regular exercise; Encourage no tobacco use; Encourage regular mammograms starting age 40 Antonieta Mcclendon CNM [address], [place], [address], [facility] 10/26/2024 17:51:33 OBGyn Episode Ob Episode Information Episode Created Date Number of Fetuses Patient Bloodtype Patient rh Status Prepregnancy Weight lbs Domestic Partner Domestic Partner Phone Father Name Software Engineer Backend Status 04/15/20 21 1 CLOSED Fetus Data First Name Last Name Admitted to NICU Weight (g) Sex Living Outcome Pediatric Complications Fetus ID Race Codes Race Delivery Type 2721.55 2 M Prematur e 9888 Vaginal Delivery Robin Calculation Initial Robin Date Initial Exam Date Initial Exam Provider Initial Ultrasound Date Last Menstrual Period Date Ultra Sound Weeks Gestation 0 Eighteen To Twenty Week Robin Update Ultra Sound Date Fundal Height At Umbil Quickening Date Ultra Sound Latest Weeks Gestation Final Robin Confirmed By Final Robin Confirmed Date Final Robin Date Ultra Sound Latest Days Gestation 0 0 Menstrual History Last Menstrual Date Menses Monthly On Bcp Conception Prior Menses Frequency Hcg Plus Date Menarche Onset Age Delivery Information Delivery Date Delivery Type Labor Anesthesia Weeks Gestation Incision Type Labor Labor Length Hrs Delivered By Post Complications Tubal Sterilization Discharge Date Comments 0 36 true Discharge Information Feeding Method Contraceptive Method Maternal HG B and HCT Levels Ob Episode Information Episode Created Date Number of Fetuses Patient Bloodtype Patient rh Status Prepregnancy Weight lbs Domestic Partner Domestic Partner Phone Father Name Software Engineer Backend Status 04/15/20 21 1 CLOSED Fetus Data First Name Last Name Admitted to NICU Weight (g) Sex Living Outcome Pediatric Complications Fetus ID Race Codes Race Delivery Type 2834.95 M Full Term 9890 Vaginal Delivery Robin Calculation Initial Robin Date Initial Exam Date Initial Exam Provider Initial Ultrasound Date Last Menstrual Period Date Ultra Sound Weeks Gestation 0 Eighteen To Twenty Week Robin Update Ultra Sound Date Fundal Height At Umbil Quickening Date Ultra Sound Latest Weeks Gestation Final Robin Confirmed By Final Robin Confirmed Date Final Robin Date Ultra Sound Latest Days Gestation 0 0 Menstrual History Last Menstrual Date Menses Monthly On Bcp Conception Prior Menses Frequency Hcg Plus Date Menarche Onset Age Delivery Information Delivery Date Delivery Type Labor Anesthesia Weeks Gestation Incision Type Labor Labor Length Hrs Delivered By Post Complications Tubal Sterilization Discharge Date Comments 8 40 Discharge Information Feeding Method Contraceptive Method Maternal HG B and HCT Levels Ob Episode Information Episode Created Date Number of Fetuses Patient Bloodtype Patient rh Status Prepregnancy Weight lbs Domestic Partner Domestic Partner Phone Father Name Software Engineer Backend Status 04/15/20 21 1 CLOSED Fetus Data First Name Last Name Admitted to NICU Weight (g) Sex Living Outcome Pediatric Complications Fetus ID Race Codes Race Delivery Type 3146.56 7704 F Full Term 9889 Vaginal Delivery Robin Calculation Initial Robin Date Initial Exam Date Initial Exam Provider Initial Ultrasound Date Last Menstrual Period Date Ultra Sound Weeks Gestation 0 Eighteen To Twenty Week Robin Update Ultra Sound Date Fundal Height At Umbil Quickening Date Ultra Sound Latest Weeks Gestation Final Robin Confirmed By Final Robin Confirmed Date Final Robin Date Ultra Sound Latest Days Gestation 0 0 Menstrual History Last Menstrual Date Menses Monthly On Bcp Conception Prior Menses Frequency Hcg Plus Date Menarche Onset Age Delivery Information Delivery Date Delivery Type Labor Anesthesia Weeks Gestation Incision Type Labor Labor Length Hrs Delivered By Post Complications Tubal Sterilization Discharge Date Comments 0 40 Discharge Information Feeding Method Contraceptive Method Maternal HG B and HCT Levels
--- OUTSIDE RECORDS SUMMARY | 2025-04-26 09:49 | XMS_ITS | Encounter Summary ---
Author Organization [facility] Facility Care Team Providers Care Senior Information Security Consultant Name Role Phone Brian Fagan MD Primary Care Provider [phone] Katerina Greco NP Primary Care Provider [phone] Encounter Details Date Type Department Care Team (Latest Contact Info) Description 01/04/2017 Orders Only [facility] CLINCONV ProviderTerrie MD [address] [place], [place] [id number] Social History Tobacco Use Types Packs/Day Years Used Date Smoking Tobacco: Never Assessed Comments Unknown Sex and Gender Information Value Date Recorded Sex Assigned at Not on file Legal Sex Female 1:49 AM MOLD COOLER Gender Identity Not on file Sexual Orientation Not on file documented as of this encounter Plan of Treatment Not on file documented as of this encounter Procedures Procedure Name Priority Date/Time Associated Diagnosis Comments CARDIOLOGY REPORT 01/04/2017 12: 00 AM MOLD COOLER documented in this encounter Results * CARDIOLOGY REPORT (01/04/2017 12:00 AM MOLD COOLER) Anatomical Region Laterality Modality Other Narrative 01/04/2017 12:00 AM MOLD COOLER Ordered by an unspecified provider. Historical Provider [facility] Final Result documented in this encounter Visit Diagnoses Not on filedocumented in this encounter Care Teams Senior Information Security Consultant Relationship Specialty Start Date End Date Brian Fagan MD [address] [place] [address] PCP - General Internal Medicine 09/26/21 03/15/24 Katerina Greco NP [address] [place] [address] PCP - General Cardiovascular Disease 03/16/24 documented as of this encounter
--- OUTSIDE RECORDS SUMMARY | 2025-04-26 09:49 | XMS_ITS | Encounter Summary ---
Author Organization [facility] Facility Care Team Providers Care Chocolate Packer Name Role Phone Brian Fagan MD Primary Care Provider [phone] Katerina Greco NP Primary Care Provider [phone] Encounter Details Date Type Department Care Team (Latest Contact Info) Description 01/10/2017 Orders Only [facility] CLINCONV ProviderTerrie MD [address] [place], [place] [id number] Social History Tobacco Use Types Packs/Day Years Used Date Smoking Tobacco: Never Assessed Comments Unknown Sex and Gender Information Value Date Recorded Sex Assigned at Not on file Legal Sex Female 1:49 AM DIE ASSEMBLER Gender Identity Not on file Sexual Orientation Not on file documented as of this encounter Plan of Treatment Not on file documented as of this encounter Procedures Procedure Name Priority Date/Time Associated Diagnosis Comments CARDIOLOGY REPORT 01/12/2017 12: 00 AM DIE ASSEMBLER documented in this encounter Results * CARDIOLOGY REPORT (01/12/2017 12:00 AM DIE ASSEMBLER) Anatomical Region Laterality Modality Other Narrative 01/12/2017 12:00 AM DIE ASSEMBLER Ordered by an unspecified provider. Historical Provider [facility] Final Result documented in this encounter Visit Diagnoses Not on filedocumented in this encounter Care Teams Chocolate Packer Relationship Specialty Start Date End Date Brian Fagan MD [address] [place] [address] PCP - General Internal Medicine 09/26/21 03/15/24 Katerina Greco NP [address] [place] [address] PCP - General Cardiovascular Disease 03/16/24 documented as of this encounter
--- OUTSIDE RECORDS SUMMARY | 2025-04-26 09:49 | XMS_ITS | Encounter Summary ---
Author Organization [facility] Facility Care Team Providers Care Decontaminator Name Role Phone Brian Fagan MD Primary Care Provider [phone] Katerina Greco NP Primary Care Provider [phone] Encounter Details Date Type Department Care Team (Latest Contact Info) Description 01/02/2017 Orders Only [facility] CLINCONV ProviderTerrie MD [address] [place], [place] [id number] Social History Tobacco Use Types Packs/Day Years Used Date Smoking Tobacco: Never Assessed Comments Unknown Sex and Gender Information Value Date Recorded Sex Assigned at Not on file Legal Sex Female 1:49 AM GLUER AND WEDGER Gender Identity Not on file Sexual Orientation Not on file documented as of this encounter Plan of Treatment Not on file documented as of this encounter Procedures Procedure Name Priority Date/Time Associated Diagnosis Comments CARDIOLOGY REPORT 01/05/2017 12: 00 AM GLUER AND WEDGER documented in this encounter Results * CARDIOLOGY REPORT (01/05/2017 12:00 AM GLUER AND WEDGER) Anatomical Region Laterality Modality Other Narrative 01/05/2017 12:00 AM GLUER AND WEDGER Ordered by an unspecified provider. Historical Provider [facility] Final Result documented in this encounter Visit Diagnoses Not on filedocumented in this encounter Care Teams Decontaminator Relationship Specialty Start Date End Date Brian Fagan MD [address] [place] [address] PCP - General Internal Medicine 09/26/21 03/15/24 Katerina Greco NP [address] [place] [address] PCP - General Cardiovascular Disease 03/16/24 documented as of this encounter
--- OUTSIDE RECORDS SUMMARY | 2025-04-26 09:49 | XMS_ITS | Encounter Summary ---
Author Organization [facility] Facility Care Team Providers Care Drawer In Plain Loom Name Role Phone Brian Fagan MD Primary Care Provider [phone] Katerina Greco NP Primary Care Provider [phone] Encounter Details Date Type Department Care Team (Latest Contact Info) Description 12/31/2016 Orders Only [facility] CLINCONV ProviderTerrie MD [address] [place], [place] [phone] Social History Tobacco Use Types Packs/Day Years Used Date Smoking Tobacco: Never Assessed Comments Unknown Sex and Gender Information Value Date Recorded Sex Assigned at Not on file Legal Sex Female 1:49 AM REVENUE ENFORCEMENT AGENT Gender Identity Not on file Sexual Orientation Not on file documented as of this encounter Plan of Treatment Not on file documented as of this encounter Procedures Procedure Name Priority Date/Time Associated Diagnosis Comments CARDIOLOGY REPORT 12/31/2016 12: 00 AM REVENUE ENFORCEMENT AGENT documented in this encounter Results * CARDIOLOGY REPORT (12/31/2016 12:00 AM REVENUE ENFORCEMENT AGENT) Anatomical Region Laterality Modality Other Narrative 12/31/2016 12:00 AM REVENUE ENFORCEMENT AGENT Ordered by an unspecified provider. Historical Provider [facility] Final Result documented in this encounter Visit Diagnoses Not on filedocumented in this encounter Care Teams Drawer In Plain Loom Relationship Specialty Start Date End Date Brian Fagan MD [address] [place] [address] PCP - General Internal Medicine 09/26/21 03/15/24 Katerina Greco NP [address] [place] [address] PCP - General Cardiovascular Disease 03/16/24 documented as of this encounter
[2025-04-26 09:51] VITALS: BP 150/87; PULSE 81; RESP 16; TEMP 36.4; O2SAT 99
[2025-04-26 10:50] LABS: Add Urine Microscopic? YES; Appearance Urine Cloudy (Clear); Bacteria Urine 4+ /hpf; Bilirubin Urine Negative (Negative); Blood Urine 3+ (Negative); Color Urine Yellow (Yellow); Glucose Urine UA Negative (Negative); Ketones Urine Trace mg/dL (Negative); Leukocyte Esterase Ur 3+ LEU/UL (Negative); Nitrate Urine Positive (Negative); Protein Urine 1+ mg/dL (Negative); RBC Urine >100 /hpf (0-2); Specific Grav Ur 1.026 (1.001-1.035); Squamous Epithelial Cell Urine None Seen /hpf (Few); WBC Urine 51-100 /hpf (0-3)
[2025-04-26 11:23] VITALS: BP 134/99; PULSE 64; RESP 15; O2SAT 99
--- OUTSIDE RECORDS SUMMARY | 2025-04-26 11:57 | XMS_ITS | CONTINUITY OF CARE DOCUMENT ---
Author Name tamika lnudberg Address Unknown Organization [facility] Address [address] [address] [place] [address] Phone [phone] Care Team Providers Care District Extension Service Agent Name Role Phone Latesha Hernandez MD Unavailable [phone] NAVIN DURAN, MIGDALIA F Unavailable NAVIN DURAN, MIGDALIA F Unavailable [phone] PROBLEMS Condition Status Date Provider Notes CHEST PAIN UNSPECIFIED active Latesha rangel MD SHORTNESS OF BREATH active ? Latesha Cespedes PALPITATIONS active ? Latesha Hernandez MD OBESITY active ? Latesha Hernandez MD ENCOUNTERS Date Type Provider Location Encounter Diag nosis - In-person encounter Office Visit Latesha Hernandez MD [place] [facility] - In-person encounter Office Visit Latesah Hernandez MD [place] [facility] - In-person encounter Office Visit Latesha Hernandez MD [place] [facility] CHEST PAIN UNSPECIFIEDSHORTNESS OF BREATHPALPITATIONSOBESITY VITAL [...] ROSE height E&M 64.5 [in_i] Josh Sarabiaharesh ROSE Body Mass Index (Ratio) 32.73 kg/m2 [place] [...] requency, days per week 7 /wk Guillermo Zebra Imagingjose raul smoking history, tot al pack/year 10 [...] Payer name Policy type / Coverage type [place] red libertarian ID BLUE PREFERRED HMO Blue Shield [id number] TREATMENT PLAN Date Name Complete Echo Spirometry Mobile Cardiac Tele Stress Test - Nuclea r HISTORY OF PROCEDURES Procedure Date Procedure Name Provider Procedure Notes S tatus EKG oJsh Harris RN completed EKG Latesha Hernandez MD complet ed
--- OUTSIDE RECORDS SUMMARY | 2025-04-26 11:57 | XMS_ITS | Encounter Summary ---
Author Organization [facility] Facility Care Team Providers Care Maintenance Service Technician Name Role Phone Brian Fagan MD Primary Care Provider [phone] Katerina Greco NP Primary Care Provider [phone] Encounter Details Date Type Department Care Team (Latest Contact Info) Description 12/31/2016 Orders Only [facility] CLINCONV ProviderTerrie MD [address] [place], [place] [phone] Social History Tobacco Use Types Packs/Day Years Used Date Smoking Tobacco: Never Assessed Comments Unknown Sex and Gender Information Value Date Recorded Sex Assigned at Not on file Legal Sex Female 1:49 AM TEST ENGINEERING MANAGER Gender Identity Not on file Sexual Orientation Not on file documented as of this encounter Plan of Treatment Not on file documented as of this encounter Procedures Procedure Name Priority Date/Time Associated Diagnosis Comments CARDIOLOGY REPORT 12/31/2016 12: 00 AM TEST ENGINEERING MANAGER documented in this encounter Results * CARDIOLOGY REPORT (12/31/2016 12:00 AM TEST ENGINEERING MANAGER) Anatomical Region Laterality Modality Other Narrative 12/31/2016 12:00 AM TEST ENGINEERING MANAGER Ordered by an unspecified provider. Historical Provider [facility] Final Result documented in this encounter Visit Diagnoses Not on filedocumented in this encounter Care Teams Maintenance Service Technician Relationship Specialty Start Date End Date Brian Fagan MD [address] [place] [address] PCP - General Internal Medicine 09/26/21 03/15/24 Katerina Greco NP [address] [place] [address] PCP - General Cardiovascular Disease 03/16/24 documented as of this encounter
--- OUTSIDE RECORDS SUMMARY | 2025-04-26 11:57 | XMS_ITS | Encounter Summary ---
Author Organization [facility] Facility Care Team Providers Care Mottle Lay Up Operator Name Role Phone Brian Fagan MD Primary Care Provider [phone] Katerina Greco NP Primary Care Provider [phone] Encounter Details Date Type Department Care Team (Latest Contact Info) Description 01/02/2017 Orders Only [facility] CLINCONV ProviderTerrie MD [address] [place], [place] [phone] Social History Tobacco Use Types Packs/Day Years Used Date Smoking Tobacco: Never Assessed Comments Unknown Sex and Gender Information Value Date Recorded Sex Assigned at Not on file Legal Sex Female 1:49 AM ONION TOPPER Gender Identity Not on file Sexual Orientation Not on file documented as of this encounter Plan of Treatment Not on file documented as of this encounter Procedures Procedure Name Priority Date/Time Associated Diagnosis Comments CARDIOLOGY REPORT 01/05/2017 12: 00 AM ONION TOPPER documented in this encounter Results * CARDIOLOGY REPORT (01/05/2017 12:00 AM ONION TOPPER) Anatomical Region Laterality Modality Other Narrative 01/05/2017 12:00 AM ONION TOPPER Ordered by an unspecified provider. Historical Provider [facility] Final Result documented in this encounter Visit Diagnoses Not on filedocumented in this encounter Care Teams Mottle Lay Up Operator Relationship Specialty Start Date End Date rBian Fagan MD [address] [place] [address] PCP - General Internal Medicine 09/26/21 03/15/24 Katerina Greco NP [address] [place] [address] PCP - General Cardiovascular Disease 03/16/24 documented as of this encounter
--- OUTSIDE RECORDS SUMMARY | 2025-04-26 11:57 | XMS_ITS | Encounter Summary ---
Author Organization [facility] Facility Care Team Providers Care Leguillon Debeader Name Role Phone Brian Fagan MD Primary Care Provider [phone] Katerina Greco NP Primary Care Provider [phone] Encounter Details Date Type Department Care Team (Latest Contact Info) Description 01/01/2017 Orders Only [facility] CLINCONV ProviderTerrie MD [address] [place], [place] [phone] Social History Tobacco Use Types Packs/Day Years Used Date Smoking Tobacco: Never Assessed Comments Unknown Sex and Gender Information Value Date Recorded Sex Assigned at Not on file Legal Sex Female 1:49 AM TRANSPORT PILOT Gender Identity Not on file Sexual Orientation Not on file documented as of this encounter Plan of Treatment Not on file documented as of this encounter Procedures Procedure Name Priority Date/Time Associated Diagnosis Comments CARDIOLOGY REPORT 01/02/2017 12: 00 AM TRANSPORT PILOT documented in this encounter Results * CARDIOLOGY REPORT (01/02/2017 12:00 AM TRANSPORT PILOT) Anatomical Region Laterality Modality Other Narrative 01/02/2017 12:00 AM TRANSPORT PILOT Ordered by an unspecified provider. Historical Provider [facility] C[facility]IAC [facility] CO[facility]IN [facility]BA Final Result documented in this encounter Visit Diagnoses Not on filedocumented in this encounter Care Teams Leguillon Debeader Relationship Specialty Start Date End Date Brian Fagan MD [address] [place] [address] PCP - General Internal Medicine 09/26/21 03/15/24 Katerina Greco NP [address] [place] [address] PCP - General Cardiovascular Disease 03/16/24 documented as of this encounter
--- OUTSIDE RECORDS SUMMARY | 2025-04-26 11:57 | XMS_ITS | Encounter Summary ---
Author Organization [facility] Facility Care Team Providers Care Plastic Manager Name Role Phone Brian Fagan MD Primary Care Provider [phone] Katerina Greco NP Primary Care Provider [phone] Encounter Details Date Type Department Care Team (Latest Contact Info) Description 01/05/2017 Orders Only [facility] CLINCONV ProviderTerrie MD [address] [place], [place] [phone] Social History Tobacco Use Types Packs/Day Years Used Date Smoking Tobacco: Never Assessed Comments Unknown Sex and Gender Information Value Date Recorded Sex Assigned at Not on file Legal Sex Female 1:49 AM BEADER TENDER Gender Identity Not on file Sexual Orientation Not on file documented as of this encounter Plan of Treatment Not on file documented as of this encounter Procedures Procedure Name Priority Date/Time Associated Diagnosis Comments CARDIOLOGY REPORT 01/05/2017 12: 00 AM BEADER TENDER documented in this encounter Results * CARDIOLOGY REPORT (01/05/2017 12:00 AM BEADER TENDER) Anatomical Region Laterality Modality Other Narrative 01/05/2017 12:00 AM BEADER TENDER Ordered by an unspecified provider. Historical Provider CV CARDIAC [facility] COLLIN ALBA Final Result documented in this encounter Visit Diagnoses Not on filedocumented in this encounter Care Teams Plastic Manager Relationship Specialty Start Date End Date Brian Fagan MD [address] [place] [address] PCP - General Internal Medicine 09/26/21 03/15/24 Katerina Greco NP [address] [place] [address] PCP - General Cardiovascular Disease 03/16/24 documented as of this encounter
--- OUTSIDE RECORDS SUMMARY | 2025-04-26 11:57 | XMS_ITS | Encounter Summary ---
Author Organization [facility] Facility Care Team Providers Care Safety Advisor Name Role Phone Brian Fagan MD Primary Care Provider [phone] Katerina Greco NP Primary Care Provider [phone] Encounter Details Date Type Department Care Team (Latest Contact Info) Description 01/04/2017 Orders Only [facility] CLINCONV ProviderTerrie MD [address] [place], [place] [phone] Social History Tobacco Use Types Packs/Day Years Used Date Smoking Tobacco: Never Assessed Comments Unknown Sex and Gender Information Value Date Recorded Sex Assigned at Not on file Legal Sex Female 1:49 AM LUNCHROOM WORKER Gender Identity Not on file Sexual Orientation Not on file documented as of this encounter Plan of Treatment Not on file documented as of this encounter Procedures Procedure Name Priority Date/Time Associated Diagnosis Comments CARDIOLOGY REPORT 01/04/2017 12: 00 AM LUNCHROOM WORKER documented in this encounter Results * CARDIOLOGY REPORT (01/04/2017 12:00 AM LUNCHROOM WORKER) Anatomical Region Laterality Modality Other Narrative 01/04/2017 12:00 AM LUNCHROOM WORKER Ordered by an unspecified provider. Historical Provider [facility] Final Result documented in this encounter Visit Diagnoses Not on filedocumented in this encounter Care Teams Safety Advisor Relationship Specialty Start Date End Date Brian Fagan MD [address] [place] [address] PCP - General Internal Medicine 09/26/21 03/15/24 Katerina Greco NP [address] [place] [address] PCP - General Cardiovascular Disease 03/16/24 documented as of this encounter
--- OUTSIDE RECORDS SUMMARY | 2025-04-26 11:57 | XMS_ITS | Encounter Summary ---
Author Organization [facility] Facility Care Team Providers Care Mobility Architect Manager Name Role Phone Brian Fagan MD Primary Care Provider [phone] Katerina Greco NP Primary Care Provider [phone] Encounter Details Date Type Department Care Team (Latest Contact Info) Description 01/03/2017 Orders Only [facility] CLINCONV ProviderTerrie MD [address] [place], [place] [phone] Social History Tobacco Use Types Packs/Day Years Used Date Smoking Tobacco: Never Assessed Comments Unknown Sex and Gender Information Value Date Recorded Sex Assigned at Not on file Legal Sex Female 1:49 AM SALES ASSISTANT INSTITUTIONAL SALES Gender Identity Not on file Sexual Orientation Not on file documented as of this encounter Plan of Treatment Not on file documented as of this encounter Procedures Procedure Name Priority Date/Time Associated Diagnosis Comments CARDIOLOGY REPORT 01/05/2017 12: 00 AM SALES ASSISTANT INSTITUTIONAL SALES documented in this encounter Results * CARDIOLOGY REPORT (01/05/2017 12:00 AM SALES ASSISTANT INSTITUTIONAL SALES) Anatomical Region Laterality Modality Other Narrative 01/05/2017 12:00 AM SALES ASSISTANT INSTITUTIONAL SALES Ordered by an unspecified provider. Historical Provider [facility] Final Result documented in this encounter Visit Diagnoses Not on filedocumented in this encounter Care Teams Mobility Architect Manager Relationship Specialty Start Date End Date Brian Fagan MD [address] [place] [address] PCP - General Internal Medicine 09/26/21 03/15/24 Katerina Greco NP [address] [place] [address] PCP - General Cardiovascular Disease 03/16/24 documented as of this encounter
--- OUTSIDE RECORDS SUMMARY | 2025-04-26 11:58 | XMS_ITS | Encounter Summary ---
Author Organization [facility] Facility Care Team Providers Care Export Agent Name Role Phone Brian Fagan MD Primary Care Provider [phone] Katerina Greco NP Primary Care Provider [phone] Encounter Details Date Type Department Care Team (Latest Contact Info) Description 01/11/2017 Orders Only [facility] CLINCONV ProviderTerrie MD [address] [place], [place] [phone] Social History Tobacco Use Types Packs/Day Years Used Date Smoking Tobacco: Never Assessed Comments Unknown Sex and Gender Information Value Date Recorded Sex Assigned at Not on file Legal Sex Female 1:49 AM DOLL SURGEON Gender Identity Not on file Sexual Orientation Not on file documented as of this encounter Plan of Treatment Not on file documented as of this encounter Procedures Procedure Name Priority Date/Time Associated Diagnosis Comments CARDIOLOGY REPORT 01/11/2017 12: 00 AM DOLL SURGEON documented in this encounter Results * CARDIOLOGY REPORT (01/11/2017 12:00 AM DOLL SURGEON) Anatomical Region Laterality Modality Other Narrative 01/11/2017 12:00 AM DOLL SURGEON Ordered by an unspecified provider. Historical Provider [facility] Final Result documented in this encounter Visit Diagnoses Not on filedocumented in this encounter Care Teams Export Agent Relationship Specialty Start Date End Date Brian Fagan MD [address] [place] [address] PCP - General Internal Medicine 09/26/21 03/15/24 Katerina Greco NP [address] [place] [address] PCP - General Cardiovascular Disease 03/16/24 documented as of this encounter
--- OUTSIDE RECORDS SUMMARY | 2025-04-26 11:58 | XMS_ITS | Encounter Summary ---
Author Organization [facility] Facility Care Team Providers Care Correctional Program Specialist Name Role Phone Brian Fagan MD Primary Care Provider [phone] Katerina Greco NP Primary Care Provider [phone] Encounter Details Date Type Department Care Team (Latest Contact Info) Description 01/06/2017 Orders Only [facility] CLINCONV ProviderTerrie MD [address] [place], [place] [phone] Social History Tobacco Use Types Packs/Day Years Used Date Smoking Tobacco: Never Assessed Comments Unknown Sex and Gender Information Value Date Recorded Sex Assigned at Not on file Legal Sex Female 1:49 AM REGULATED PROGRAM MANAGER Gender Identity Not on file Sexual Orientation Not on file documented as of this encounter Plan of Treatment Not on file documented as of this encounter Procedures Procedure Name Priority Date/Time Associated Diagnosis Comments CARDIOLOGY REPORT 01/07/2017 12: 00 AM REGULATED PROGRAM MANAGER documented in this encounter Results * CARDIOLOGY REPORT (01/07/2017 12:00 AM REGULATED PROGRAM MANAGER) Anatomical Region Laterality Modality Other Narrative 01/07/2017 12:00 AM REGULATED PROGRAM MANAGER Ordered by an unspecified provider. Historical Provider [facility] Final Result documented in this encounter Visit Diagnoses Not on filedocumented in this encounter Care Teams Correctional Program Specialist Relationship Specialty Start Date End Date Brian Fagan MD [address] [place] [address] PCP - General Internal Medicine 09/26/21 03/15/24 Katerina Greco NP [address] [place] [address] PCP - General Cardiovascular Disease 03/16/24 documented as of this encounter
--- OUTSIDE RECORDS SUMMARY | 2025-04-26 11:58 | XMS_ITS | Encounter Summary ---
Author Organization [facility] Facility Care Team Providers Care Work Over Rig Operator Name Role Phone Brian Fagan MD Primary Care Provider [phone] Katerina Greco NP Primary Care Provider [phone] Encounter Details Date Type Department Care Team (Latest Contact Info) Description 12/28/2016 Orders Only [facility] CLINCONV ProviderTerrie MD [address] [place], [place] [phone] Social History Tobacco Use Types Packs/Day Years Used Date Smoking Tobacco: Never Assessed Comments Unknown Sex and Gender Information Value Date Recorded Sex Assigned at Not on file Legal Sex Female 1:49 AM STEWARD/STEWARDESS CHIEF CARGO VESSEL Gender Identity Not on file Sexual Orientation Not on file documented as of this encounter Plan of Treatment Not on file documented as of this encounter Procedures Procedure Name Priority Date/Time Associated Diagnosis Comments CARDIOLOGY REPORT 12/28/2016 12: 00 AM STEWARD/STEWARDESS CHIEF CARGO VESSEL documented in this encounter Results * CARDIOLOGY REPORT (12/28/2016 12:00 AM STEWARD/STEWARDESS CHIEF CARGO VESSEL) Anatomical Region Laterality Modality Other Narrative 12/28/2016 12:00 AM STEWARD/STEWARDESS CHIEF CARGO VESSEL Ordered by an unspecified provider. Historical Provider [facility] Final Result documented in this encounter Visit Diagnoses Not on filedocumented in this encounter Care Teams Work Over Rig Operator Relationship Specialty Start Date End Date Brian Fagna MD [address] [place] [address] PCP - General Internal Medicine 09/26/21 03/15/24 Katerina Greco NP [address] [place] [address] PCP - General Cardiovascular Disease 03/16/24 documented as of this encounter
--- OUTSIDE RECORDS SUMMARY | 2025-04-26 11:58 | XMS_ITS | Encounter Summary ---
Author Organization [facility] Facility Care Team Providers Care Automobile Mechanic Supervisor Name Role Phone Brian Fagan MD Primary Care Provider [phone] Katerina Greco NP Primary Care Provider [phone] Encounter Details Date Type Department Care Team (Latest Contact Info) Description 12/30/2016 Orders Only [facility] CLINCONV ProviderTerrie MD [address] [place], [place] [phone] Social History Tobacco Use Types Packs/Day Years Used Date Smoking Tobacco: Never Assessed Comments Unknown Sex and Gender Information Value Date Recorded Sex Assigned at Not on file Legal Sex Female 1:49 AM VOCATIONAL CHILDCARE TEACHER Gender Identity Not on file Sexual Orientation Not on file documented as of this encounter Plan of Treatment Not on file documented as of this encounter Procedures Procedure Name Priority Date/Time Associated Diagnosis Comments CARDIOLOGY REPORT 12/30/2016 12: 00 AM VOCATIONAL CHILDCARE TEACHER documented in this encounter Results * CARDIOLOGY REPORT (12/30/2016 12:00 AM VOCATIONAL CHILDCARE TEACHER) Anatomical Region Laterality Modality Other Narrative 12/30/2016 12:00 AM VOCATIONAL CHILDCARE TEACHER Ordered by an unspecified provider. Historical Provider [facility] Final Result documented in this encounter Visit Diagnoses Not on filedocumented in this encounter Care Teams Automobile Mechanic Supervisor Relationship Specialty Start Date End Date Brian Fagan MD [address] [place] [address] PCP - General Internal Medicine 09/26/21 03/15/24 Katerina Greco NP [address] [place] [address] PCP - General Cardiovascular Disease 03/16/24 documented as of this encounter
--- OUTSIDE RECORDS SUMMARY | 2025-04-26 11:58 | XMS_ITS | Encounter Summary ---
Author Organization [facility] Facility Care Team Providers Care Manager Part Name Role Phone Brian Fagan MD Primary Care Provider [phone] Katerina Greco NP Primary Care Provider [phone] Encounter Details Date Type Department Care Team (Latest Contact Info) Description 12/29/2016 Orders Only [facility] CLINCONV ProviderTerrie MD [address] [place], [place] [phone] Social History Tobacco Use Types Packs/Day Years Used Date Smoking Tobacco: Never Assessed Comments Unknown Sex and Gender Information Value Date Recorded Sex Assigned at Not on file Legal Sex Female 1:49 AM TIRE REPAIRMAN Gender Identity Not on file Sexual Orientation Not on file documented as of this encounter Plan of Treatment Not on file documented as of this encounter Procedures Procedure Name Priority Date/Time Associated Diagnosis Comments CARDIOLOGY REPORT 01/07/2017 12: 00 AM TIRE REPAIRMAN CARDIOLOGY REPORT 12/29/2016 12: 00 AM TIRE REPAIRMAN documented in this encounter Results * CARDIOLOGY REPORT (01/07/2017 12:00 AM TIRE REPAIRMAN) Anatomical Region Laterality Modality Other Narrative 01/07/2017 12:00 AM TIRE REPAIRMAN Ordered by an unspecified provider. Historical Provider [facility] Final Result * CARDIOLOGY REPORT (12/29/2016 12:00 AM TIRE REPAIRMAN) Anatomical Region Laterality Modality Other Narrative 12/29/2016 12:00 AM TIRE REPAIRMAN Ordered by an unspecified provider. us Historical Provider [facility] Final Result documented in this encounter Visit Diagnoses Not on filedocumented in this encounter Care Teams Manager Part Relationship Specialty Start Date End Date Brian Fagan MD [address] [place] [address] PCP - General Internal Medicine 09/26/21 03/15/24 Katerina Greco NP [address] [place] [address] PCP - General Cardiovascular Disease 03/16/24 documented as of this encounter
--- OUTSIDE RECORDS SUMMARY | 2025-04-26 11:58 | XMS_ITS | Referral Summary ---
Author Organization [facility] [address] Address [address] [place] [address] Care Team Providers Care Director Of Graduate Admissions Name Role Phone Katerina Greco NP Primary Care Provider Social History Tobacco Use Types Packs/Day Years Used Date Smoking Tobacco: Never Assessed Personal Safety Answer Date Recorded Getting School Help Needed Not on file 02/13 Comments Unknown Sex and Gender Information Value Date Recorded Sex Assigned at Not on file Legal Sex Female 1:49 AM DIRECTOR HOUSEKEEPING Gender Identity Not on file Sexual Orientation Not on file Last Filed Vital Signs Vital Sign Reading Time Taken Comments Blood Pressure 133/93 10/14/2021 8:51 AM DIRECTOR HOUSEKEEPING Pulse 78 01/19/2017 11:15 AM DIRECTOR HOUSEKEEPING Temperature 36.6 C (97.9 F) 12/02/2016 8:50 AM DIRECTOR HOUSEKEEPING Respiratory Rate - - Oxygen Saturation 96% 01/19/2017 11:15 AM DIRECTOR HOUSEKEEPING Inhaled Oxygen Concentration - - Weight 93.9 kg (207 lb) 01/19/2017 11:15 AM DIRECTOR HOUSEKEEPING Height 165.1 cm (5' 5) 01/19/2017 11:15 AM DIRECTOR HOUSEKEEPING Body Mass Index 34.45 01/19/2017 11:15 AM DIRECTOR HOUSEKEEPING Plan of Treatment Not on file Insurance [facility] [employer] Care Teams Director Of Graduate Admissions Relationship Specialty Start Date End Date Katerina Greco NP [address] [place] [address] PCP - General Cardiovascular Disease 03/16/24
--- OUTSIDE RECORDS SUMMARY | 2025-04-26 11:58 | XMS_ITS | Encounter Summary ---
Author Organization [facility] Facility Care Team Providers Care Silver Buffer Name Role Phone Brian Fagan MD Primary Care Provider [phone] Katerina Greco NP Primary Care Provider [phone] Encounter Details Date Type Department Care Team (Latest Contact Info) Description 01/09/2017 Orders Only [facility] CLINCONV ProviderTerrie MD [address] [place], [place] [phone] Social History Tobacco Use Types Packs/Day Years Used Date Smoking Tobacco: Never Assessed Comments Unknown Sex and Gender Information Value Date Recorded Sex Assigned at Not on file Legal Sex Female 1:49 AM SLASHER Gender Identity Not on file Sexual Orientation Not on file documented as of this encounter Plan of Treatment Not on file documented as of this encounter Procedures Procedure Name Priority Date/Time Associated Diagnosis Comments CARDIOLOGY REPORT 01/12/2017 12: 00 AM SLASHER documented in this encounter Results * CARDIOLOGY REPORT (01/12/2017 12:00 AM SLASHER) Anatomical Region Laterality Modality Other Narrative 01/12/2017 12:00 AM SLASHER Ordered by an unspecified provider. Historical Provider [facility] Final Result documented in this encounter Visit Diagnoses Not on filedocumented in this encounter Care Teams Silver Buffer Relationship Specialty Start Date End Date Brian Fagan MD [address] [place] [address] PCP - General Internal Medicine 09/26/21 03/15/24 Katerina Greco NP [address] [place] [address] PCP - General Cardiovascular Disease 03/16/24 documented as of this encounter
--- OUTSIDE RECORDS SUMMARY | 2025-04-26 11:58 | XMS_ITS | Encounter Summary ---
Author Organization [facility] Facility Care Team Providers Care Asbestos Wire Finisher Name Role Phone Brian Fagan MD Primary Care Provider [phone] Katerina Greco NP Primary Care Provider [phone] Encounter Details Date Type Department Care Team (Latest Contact Info) Description 01/13/2017 Orders Only [facility] CLINCONV ProviderTerrie MD [address] [place], [place] [phone] Social History Tobacco Use Types Packs/Day Years Used Date Smoking Tobacco: Never Assessed Comments Unknown Sex and Gender Information Value Date Recorded Sex Assigned at Not on file Legal Sex Female 1:49 AM EAR SPECIALIST Gender Identity Not on file Sexual Orientation Not on file documented as of this encounter Plan of Treatment Not on file documented as of this encounter Procedures Procedure Name Priority Date/Time Associated Diagnosis Comments CARDIOLOGY REPORT 01/14/2017 12: 00 AM EAR SPECIALIST documented in this encounter Results * CARDIOLOGY REPORT (01/14/2017 12:00 AM EAR SPECIALIST) Anatomical Region Laterality Modality Other Narrative 01/14/2017 12:00 AM EAR SPECIALIST Ordered by an unspecified provider. Historical Provider [facility] Final Result documented in this encounter Visit Diagnoses Not on filedocumented in this encounter Care Teams Asbestos Wire Finisher Relationship Specialty Start Date End Date Brian Fagan MD [address] [place] [address] PCP - General Internal Medicine 09/26/21 03/15/24 Katerina Greco NP [address] [place] [address] PCP - General Cardiovascular Disease 03/16/24 documented as of this encounter
--- OUTSIDE RECORDS SUMMARY | 2025-04-26 11:58 | XMS_ITS | Encounter Summary ---
Author Organization [facility] Facility Care Team Providers Care Floral Merchandiser Name Role Phone Brian Fagan MD Primary Care Provider [phone] Katerina Greco NP Primary Care Provider [phone] Encounter Details Date Type Department Care Team (Latest Contact Info) Description 01/10/2017 Orders Only [facility] CLINCONV ProviderTerrie MD [address] [place], [place] [phone] Social History Tobacco Use Types Packs/Day Years Used Date Smoking Tobacco: Never Assessed Comments Unknown Sex and Gender Information Value Date Recorded Sex Assigned at Not on file Legal Sex Female 1:49 AM SOCIAL WORK SUPERVISOR Gender Identity Not on file Sexual Orientation Not on file documented as of this encounter Plan of Treatment Not on file documented as of this encounter Procedures Procedure Name Priority Date/Time Associated Diagnosis Comments CARDIOLOGY REPORT 01/12/2017 12: 00 AM SOCIAL WORK SUPERVISOR documented in this encounter Results * CARDIOLOGY REPORT (01/12/2017 12:00 AM SOCIAL WORK SUPERVISOR) Anatomical Region Laterality Modality Other Narrative 01/12/2017 12:00 AM SOCIAL WORK SUPERVISOR Ordered by an unspecified provider. Historical Provider [facility] C[facility]IAC [facility] Final Result documented in this encounter Visit Diagnoses Not on filedocumented in this encounter Care Teams Floral Merchandiser Relationship Specialty Start Date End Date Brian Fagan MD [address] [place] [address] PCP - General Internal Medicine 09/26/21 03/15/24 Katerina Greco NP [address] [place] [address] PCP - General Cardiovascular Disease 03/16/24 documented as of this encounter
--- OUTSIDE RECORDS SUMMARY | 2025-04-26 11:58 | XMS_ITS | Encounter Summary ---
Author Organization [facility] Facility Care Team Providers Care Security Officer Supervisor Name Role Phone Brian Fagan MD Primary Care Provider [phone] Katerina Greco NP Primary Care Provider [phone] Encounter Details Date Type Department Care Team (Latest Contact Info) Description 01/08/2017 Orders Only [facility] CLINCONV ProviderTerrie MD [address] [place], [place] [phone] Social History Tobacco Use Types Packs/Day Years Used Date Smoking Tobacco: Never Assessed Comments Unknown Sex and Gender Information Value Date Recorded Sex Assigned at Not on file Legal Sex Female 1:49 AM ADVERTISING COORDINATOR Gender Identity Not on file Sexual Orientation Not on file documented as of this encounter Plan of Treatment Not on file documented as of this encounter Procedures Procedure Name Priority Date/Time Associated Diagnosis Comments CARDIOLOGY REPORT 01/08/2017 12: 00 AM ADVERTISING COORDINATOR CARDIOLOGY REPORT 01/08/2017 12: 00 AM ADVERTISING COORDINATOR documented in this encounter Results * CARDIOLOGY REPORT (01/08/2017 12:00 AM ADVERTISING COORDINATOR) Anatomical Region Laterality Modality Other Narrative 01/08/2017 12:00 AM ADVERTISING COORDINATOR Ordered by an unspecified provider. Historical Provider [facility] C[facility]IAC [facility] Final Result * CARDIOLOGY REPORT (01/08/2017 12:00 AM ADVERTISING COORDINATOR) Anatomical Region Laterality Modality Other Narrative 01/08/2017 12:00 AM ADVERTISING COORDINATOR Ordered by an unspecified provider. us Historical Provider CV CARDIAC SERVICES COLLIN ALBA Final Result documented in this encounter Visit Diagnoses Not on filedocumented in this encounter Care Teams Security Officer Supervisor Relationship Specialty Start Date End Date Brian Fagan MD [address] [place] [address] PCP - General Internal Medicine 09/26/21 03/15/24 Katerina Greco NP [address] [place] [address] PCP - General Cardiovascular Disease 03/16/24 documented as of this encounter
--- OUTSIDE RECORDS SUMMARY | 2025-04-26 11:58 | XMS_ITS | Encounter Summary ---
Author Organization [facility] Facility Care Team Providers Care Vise Hand Name Role Phone Brian Fagan MD Primary Care Provider [phone] Katerina Greco NP Primary Care Provider [phone] Encounter Details Date Type Department Care Team (Latest Contact Info) Description 01/14/2017 Orders Only [facility] CLINCONV ProviderTerrie MD [address] [place], [place] [phone] Social History Tobacco Use Types Packs/Day Years Used Date Smoking Tobacco: Never Assessed Comments Unknown Sex and Gender Information Value Date Recorded Sex Assigned at Not on file Legal Sex Female 1:49 AM SOFTWARE TOOLS ENGINEER Gender Identity Not on file Sexual Orientation Not on file documented as of this encounter Plan of Treatment Not on file documented as of this encounter Procedures Procedure Name Priority Date/Time Associated Diagnosis Comments CARDIOLOGY REPORT 01/15/2017 12: 00 AM SOFTWARE TOOLS ENGINEER documented in this encounter Results * CARDIOLOGY REPORT (01/15/2017 12:00 AM SOFTWARE TOOLS ENGINEER) Anatomical Region Laterality Modality Other Narrative 01/15/2017 12:00 AM SOFTWARE TOOLS ENGINEER Ordered by an unspecified provider. Historical Provider CV CARDIAC SERVICES CO[facility]IN [facility]BA Final Result documented in this encounter Visit Diagnoses Not on filedocumented in this encounter Care Teams Vise Hand Relationship Specialty Start Date End Date Brian Fagan MD [address] [place] [address] PCP - General Internal Medicine 09/26/21 03/15/24 Katerina Greco NP [address] [place] [address] PCP - General Cardiovascular Disease 03/16/24 documented as of this encounter
--- OUTSIDE RECORDS SUMMARY | 2025-04-26 11:58 | XMS_ITS | Encounter Summary ---
Author Organization [facility] Facility Care Team Providers Care Animal Chiropractor Name Role Phone Brian Fagan MD Primary Care Provider [phone] Katerina Greco NP Primary Care Provider [phone] Encounter Details Date Type Department Care Team (Latest Contact Info) Description 01/12/2017 Orders Only [facility] CLINCONV ProviderTerrie MD [address] [place], [place] [id number] Social History Tobacco Use Types Packs/Day Years Used Date Smoking Tobacco: Never Assessed Comments Unknown Sex and Gender Information Value Date Recorded Sex Assigned at Not on file Legal Sex Female 1:49 AM LOCOMOTIVE SWITCH OPERATOR Gender Identity Not on file Sexual Orientation Not on file documented as of this encounter Plan of Treatment Not on file documented as of this encounter Procedures Procedure Name Priority Date/Time Associated Diagnosis Comments CARDIOLOGY REPORT 01/13/2017 12: 00 AM LOCOMOTIVE SWITCH OPERATOR documented in this encounter Results * CARDIOLOGY REPORT (01/13/2017 12:00 AM LOCOMOTIVE SWITCH OPERATOR) Anatomical Region Laterality Modality Other Narrative 01/13/2017 12:00 AM LOCOMOTIVE SWITCH OPERATOR Ordered by an unspecified provider. Historical Provider [facility] C[facility] Final Result documented in this encounter Visit Diagnoses Not on filedocumented in this encounter Care Teams Animal Chiropractor Relationship Specialty Start Date End Date Brian Fagan MD [address] [place] [address] PCP - General Internal Medicine 09/26/21 03/15/24 Katerina Greco NP [address] [place] [address] PCP - General Cardiovascular Disease 03/16/24 documented as of this encounter
--- OUTSIDE RECORDS SUMMARY | 2025-04-26 11:59 | XMS_ITS | Clinical Summary ---
Author Organization [facility] [address] Address [address] [place] [address] Care Team Providers Care Dental Receptionist Name Role Phone Katerina Greco NP Primary Care Provider Social History Tobacco Use Types Packs/Day Years Used Date Smoking Tobacco: Never Assessed Personal Safety Answer Date Recorded Getting School Help Needed Not on file 02/13 Comments Unknown Sex and Gender Information Value Date Recorded Sex Assigned at Not on file Legal Sex Female 1:49 AM WAREHOUSE TEAM LEADER Gender Identity Not on file Sexual Orientation Not on file Last Filed Vital Signs Vital Sign Reading Time Taken Comments Blood Pressure 133/93 10/14/2021 8:51 AM WAREHOUSE TEAM LEADER Pulse 78 01/19/2017 11:15 AM WAREHOUSE TEAM LEADER Temperature 36.6 C (97.9 F) 12/02/2016 8:50 AM WAREHOUSE TEAM LEADER Respiratory Rate - - Oxygen Saturation 96% 01/19/2017 11:15 AM WAREHOUSE TEAM LEADER Inhaled Oxygen Concentration - - Weight 93.9 kg (207 lb) 01/19/2017 11:15 AM WAREHOUSE TEAM LEADER Height 165.1 cm (5' 5) 01/19/2017 11:15 AM WAREHOUSE TEAM LEADER Body Mass Index 34.45 01/19/2017 11:15 AM WAREHOUSE TEAM LEADER Plan of Treatment Not on file Insurance [facility] [employer] Care Teams Dental Receptionist Relationship Specialty Start Date End Date Katerina Greco NP [address] [place] [address] PCP - General Cardiovascular Disease 03/16/24
--- OUTSIDE RECORDS SUMMARY | 2025-04-26 11:59 | XMS_ITS | Encounter Summary ---
Author Organization [facility] Facility Care Team Providers Care Breaker Hand Name Role Phone Brian Fagan MD Primary Care Provider [phone] Katerina Greco NP Primary Care Provider [phone] Encounter Details Date Type Department Care Team (Latest Contact Info) Description 12/02/2016 Orders Only [facility] CLINCONV ProviderTerrie MD [address] [place], [place] [id number] Social History Tobacco Use Types Packs/Day Years Used Date Smoking Tobacco: Never Assessed Comments Unknown Sex and Gender Information Value Date Recorded Sex Assigned at Not on file Legal Sex Female 1:49 AM RELATIONS LIAISON Gender Identity Not on file Sexual Orientation Not on file documented as of this encounter Plan of Treatment Not on file documented as of this encounter Procedures Procedure Name Priority Date/Time Associated Diagnosis Comments SCAN - LABS 12/10/2016 12:00 AM RELATIONS LIAISON CARDIOLOGY REPORT 12/10/2016 12: 00 AM RELATIONS LIAISON documented in this encounter Results * SCAN - LABS (12/10/2016 12:00 AM RELATIONS LIAISON) Narrative 12/10/2016 12:00 AM RELATIONS LIAISON Ordered by an unspecified provider. Historical Provider Final Res ult * CARDIOLOGY REPORT (12/10/2016 12:00 AM RELATIONS LIAISON) Anatomical Region Laterality Modality Other Narrative 12/10/2016 12:00 AM RELATIONS LIAISON Ordered by an unspecified provider. us Historical Provider [facility] Final Result documented in this encounter Visit Diagnoses Not on filedocumented in this encounter Care Teams Breaker Hand Relationship Specialty Start Date End Date Brian Fagan MD [address] [place] [address] PCP - General Internal Medicine 09/26/21 03/15/24 Katerina Greco NP [address] [place] [address] PCP - General Cardiovascular Disease 03/16/24 documented as of this encounter
--- OUTSIDE RECORDS SUMMARY | 2025-04-26 11:59 | XMS_ITS | Encounter Summary ---
Author Organization [facility] Facility Care Team Providers Care Slitter Helper Name Role Phone Brian Fagan MD Primary Care Provider [phone] Katerina Greco NP Primary Care Provider [phone] Encounter Details Date Type Department Care Team (Latest Contact Info) Description 01/17/2017 Orders Only [facility] CLINCONV ProviderTerrie MD [address] [place], [place] [id number] Social History Tobacco Use Types Packs/Day Years Used Date Smoking Tobacco: Never Assessed Comments Unknown Sex and Gender Information Value Date Recorded Sex Assigned at Not on file Legal Sex Female 1:49 AM ETL BI DEVELOPER Gender Identity Not on file Sexual Orientation Not on file documented as of this encounter Plan of Treatment Not on file documented as of this encounter Procedures Procedure Name Priority Date/Time Associated Diagnosis Comments CARDIOLOGY REPORT 01/17/2017 12: 00 AM ETL BI DEVELOPER documented in this encounter Results * CARDIOLOGY REPORT (01/17/2017 12:00 AM ETL BI DEVELOPER) Anatomical Region Laterality Modality Other Narrative 01/17/2017 12:00 AM ETL BI DEVELOPER Ordered by an unspecified provider. Historical Provider [facility] CARDIAC [facility] Final Result documented in this encounter Visit Diagnoses Not on filedocumented in this encounter Care Teams Slitter Helper Relationship Specialty Start Date End Date Brian Fagan MD [address] [place] [address] PCP - General Internal Medicine 09/26/21 03/15/24 Katerina Greco NP [address] [place] [address] PCP - General Cardiovascular Disease 03/16/24 documented as of this encounter
--- OUTSIDE RECORDS SUMMARY | 2025-04-26 11:59 | XMS_ITS | Clinical Summary ---
Author Organization [facility] Address [address] [place] [address] Care Team Providers Care Register Of Wills Name Role Phone Nohemy Bonilla MD Primary Care Provider Source Comments [facility],non-owned Affiliates and Associated Physician Practices is amultiple site organization consisting of ambulatory clinics and hospital sitesin [place], [place], [place] and [place]. This disclosure is being madepursuant to the Care Everywhere program and may not contain all information available regarding this patient. 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
--- NOTE | 2025-04-26 12:52 | ED_ITS ---
HPI - General Adult General Chief complaint: Urogenital-Female Stated complaint: pain burning with urination and hematuria\ Time Seen by Provider: 04/26/25 11:27 History of Present Illness HPI narrative: Patient is a 54-year-old female who presents emergency department with chief complaint of urinary symptoms and hematuria. Patient reports that last night she noticed that she started having frequency of urination reports she has some discomfort with urination nose was blood in her urine. The patient called her primary care provider who recommended that she come to the emergency department to evaluated possible kidney stone Related Data Home Medications ?Medication ?Instructions ?Recorded ?Confirmed ?Last Taken ?Type estradiol 1 mg tablet 1 mg PO DAILY 12/10/22 03/27/25 Unknown History cholecalciferol (vitamin D3) 25 25 mcg PO DAILY 11/20/23 03/27/25 Unknown History mcg (1,000 unit) capsule multivitamin 1 tablet PO DAILY 11/20/23 03/27/25 Unknown History cetirizine 10 mg disintegrating 10 mg PO DAILY 03/27/25 03/27/25 Unknown History tablet Allergies Allergy/AdvReac Type Severity Reaction Status Date / Time meperidine Allergy Unknown Vomiting Verified 04/26/25 09:46 Penicillins Allergy Unknown cardiac Verified 04/26/25 09:46 arrest Review of Systems Review of Systems: A 10 system review of systems was completed on the patient and is negative except for what is stated in the HPI. Nursing and ancillary documentation was reviewed. FOR[facility]LY [facility] Past Medical History Medical History Posterior calcaneal exostosis Achilles tendinitis of right lower extremity Screening for lipoid disorders Screening for metabolic disorder 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 Family history of diabetes mellitus depression History of hormone therapy GERD (gastroesophageal reflux disease) Pneumonia Seasonal allergies History of angina Migraines Surgical History Surgical History H/O: hysterectomy Hx of LASIK bilateral Hx of breast reduction, elective H/O right knee surgery H/O right wrist surgery H/O left wrist surgery Family History Family History Mother Family history of malignant neoplasm Family history of coronary artery disease Family history of type 2 diabetes mellitus Diabetes mellitus Father Patient's father is in good health Family history of type 2 diabetes mellitus Diabetes mellitus Social History Social History Social History: Caffeine-coffee/green tea Smoking status: Former smoker Alcohol intake: current Alcohol use details: occasionally wine Substance use: never Substance use type: does not use Do You Feel Safe in your Home?: Yes Lack of Transportation: No Lack of Food: Never True Current Housing: I Have Housing Concerned About Future Housing: No Difficulty Paying Gas/Electric Bills: No Difficulty Paying for Meds: No Currently Unemployed: No Education: Trade/Vocational Certificate Difficulty w/ Childcare or Family Care: No Gender identity (if verbalized by the patient): Female Exam Narrative: GENERAL: Well-appearing, well-nourished, and in no acute distress. HEAD: Normocephalic, atraumatic. EYES: PERRLA and EOMI. ENT: Nares clear, no rhinorrhea or epistaxis. Mucous membranes moist. NECK: Supple. CHEST: Clear to auscultation. No respiratory distress. HEART: Regular rate and rhythm. No murmur heard. Normal peripheral pulses. ABDOMEN: Soft, nontender, nondistended, normal active bowel sounds. EXTREMITIES: Normal range of motion. No edema. SKIN: Warm, dry, no rash. NEURO: No focal deficits. Alert and oriented x3. PSYCH: Normal mood and affect. Course Vital Signs Vital signs: Vital Signs Temperature 36.4 C 04/26/25 09:51 Pulse Rate 81 04/26/25 09:51 Respiratory Rate 16 04/26/25 09:51 Blood Pressure 150/87 H 04/26/25 09:51 Pulse Oximetry 99 04/26/25 09:51 Oxygen Delivery Room Air 04/26/25 09:51 Temperature 36.4 C 04/26/25 09:51 Pulse Rate 64 04/26/25 11:23 Respiratory Rate 15 04/26/25 11:23 Blood Pressure 134/99 H 04/26/25 11:23 Pulse Oximetry 99 04/26/25 11:23 Oxygen Delivery Room Air 04/26/25 09:51 Medical Decision Making MDM Narrative Medical decision making narrative: Differential diagnosis includes UTI, pyelonephritis, ureterolithiasis Urinalysis showed evidence of UTI with greater than [address] scan of the abdomen pelvis showed no evidence of obstructing stone Vital Signs Vital Signs: Vital Signs Temperature 36.4 C 04/26/25 09:51 Pulse Rate 81 04/26/25 09:51 Respiratory Rate 16 04/26/25 09:51 Blood Pressure 150/87 H 04/26/25 09:51 Pulse Oximetry 99 04/26/25 09:51 Oxygen Delivery Room Air 04/26/25 09:51 Temperature 36.4 C 04/26/25 09:51 Pulse Rate 64 04/26/25 11:23 Respiratory Rate 15 04/26/25 11:23 Blood Pressure 134/99 H 04/26/25 11:23 Pulse Oximetry 99 04/26/25 11:23 Oxygen Delivery Room Air 04/26/25 09:51 Lab Data Labs: Lab Results 04/26/25 Range/Units 10:01 Urine Color Yellow (Yellow) Urine Appearance Cloudy H (Clear) Urine pH 7.0 (5.0-9.0) Ur Specific [place] 1.026 (1.001-1.035) Urine Protein 1+ H (Negative) mg/dL Urine Glucose (UA) Negative (Negative) mg/dL Urine Ketones Trace H (Negative) mg/dL Ur Blood (Man) 3+ H (Negative) Urine Nitrate Positive H (Negative) Urine Bilirubin Negative (Negative) Urine Urobilinogen 1.0 (<2.0) mg/dL Leukocyte Esterase Rfl 3+ H (Negative) PEARL/UL Urine RBC >100 H (0-2) /hpf Urine WBC 51-100 H (0-3) /hpf Ur Squamous Epith Cells None seen (Few) /hpf Urine Bacteria 4+ H /hpf Urine Casts 3-5 Discharge Plan Discharge Clinical Impression: UTI (urinary tract infection), Hematuria Patient Disposition: Home Condition: Stable Instructions: Antibiotic Form, Urinary Tract Infection in Women (ED), Hematuria (ED) Patient Language: Japanese Prescriptions: New sulfamethoxazole-trimethoprim [Bactrim DS] 800-160 mg tablet 1 tablet PO Q12H Qty: 14 0RF No Action multivitamin Tablet 1 tablet PO DAILY cholecalciferol (vitamin D3) 25 mcg (1,000 unit) capsule 25 mcg PO DAILY sumatriptan succinate 100 mg tablet See Rx Instructions PO .COMPLEX Qty: 9 5RF Rx Instructions: take 1 tab at onset of headache; if no relief, may repeat 1 tab after at least 2 hrs; max = 2 tabs/24 hrs PO estradiol 1 mg tablet 1 mg PO DAILY Rx Instructions: off 1 week; repeat cycle cetirizine 10 mg tablet,disintegrating 10 mg PO DAILY nystatin 100,000 unit/gram powder 1 applic topical TID Qty: 30 1RF fluticasone propionate 50 mcg/actuation spray,suspension 1 spray intranasal DAILY Qty: 16 1RF Rx Instructions: administer into each nostril Follow-up/Referrals: Katerina Greco, COVERSTITCH MACHINE OPERATOR-C [Primary Care Provider] - Time of Disposition: 12:58
[2025-04-26 13:04] VITALS: BP 150/95; PULSE 60; RESP 15; TEMP 36.4; O2SAT 100
== END 2025-04-26 13:04 | disposition home or self-care (01) ==
PROVIDERS: Emergency Provider Emergency Medicine; PCP Clinical Nurse Specialist
DX: N39.0 Urinary tract infection, site not specified (principal); K21.9 Gastro-esophageal reflux disease without esophagitis
CPT/HCPCS: 74176; 81001; 87077; 87086; 87186; 99284

== ENCOUNTER 2025-05-09 09:19 | Outpatient (CLI) | payer BC, SELFPAY ==
--- NOTE | 2025-05-09 09:23 | EST_ITS ---
Patient Info Name: Meche Berman Age: 54 years : 1970 Gender: Female Ht: 65 in Wt: 212 lbs BSA: 2.14 m2 HR: 63 bpm BP: 132 / 82 mmHg Exam Date: 05/09/2025 9:28 AM Patient Status: O Admit Date: 05/09/2025 Exam Type: CA stress echo Treadmill exercise stress echocardiogram is performed. Staff Attending Provider: Katerina TURCIOS Exercise Technologist: Briseida Archuleta Exercise Physician: Cisco Vides DO Summary 1. 1. Negative Perfecto exercise stress test for ischemic ST changes by ECG criteria. 2. 2. Good functional capacity, achieving 10 METs of workload. 3. 3. Hypertensive response to exercise. 4. 4. Appropriate HR response to exercise. 5. 5. Appropriate HR recovery at 1 minute post exercise. 6. 6. Negative stress echocardiogram for ischemia by wall motion analysis. 7. 7. Patient informed of the above results. Stress Echo Findings Left Ventricle Appropriate increase in LV endocardial thickening with systole. Appropriate augmentation of contractility with systole. No wall motion abnormality. Left Ventricle Normal LV systolic function, no wall motion abnormality. Protocol: Perfecto Stress ECG Details Stage: REST Duration (min): 0 min : 18 sec Speed (mph): 0.0 Grade (%): 0 HR (bpm): 63 SBP (mmHg): --- DBP (mmHg): --- METS: --- Stage: REST Duration (min): 5 min : 56 sec Speed (mph): 0.0 Grade (%): 0 HR (bpm): 70 SBP (mmHg): 132 DBP (mmHg): 82 METS: --- Stage: STAGE 1 Duration (min): 1 min : 0 sec Speed (mph): 1.7 Grade (%): 10 HR (bpm): 95 SBP (mmHg): 132 DBP (mmHg): 82 METS: --- Stage: STAGE 1 Duration (min): 2 min : 0 sec Speed (mph): 1.7 Grade (%): 10 HR (bpm): 103 SBP (mmHg): 132 DBP (mmHg): 82 METS: --- Stage: STAGE 1 Duration (min): 3 min : 0 sec Speed (mph): 1.7 Grade (%): 10 HR (bpm): 95 SBP (mmHg): 191 DBP (mmHg): 82 METS: --- Stage: STAGE 2 Duration (min): 1 min : 0 sec Speed (mph): 2.5 Grade (%): 12 HR (bpm): 115 SBP (mmHg): 191 DBP (mmHg): 82 METS: --- Stage: STAGE 2 Duration (min): 2 min : 0 sec Speed (mph): 2.5 Grade (%): 12 HR (bpm): 134 SBP (mmHg): 212 DBP (mmHg): 91 METS: --- Stage: STAGE 2 Duration (min): 3 min : 0 sec Speed (mph): 2.5 Grade (%): 12 HR (bpm): 130 SBP (mmHg): 212 DBP (mmHg): 91 METS: --- Stage: STAGE 3 Duration (min): 1 min : 0 sec Speed (mph): 3.4 Grade (%): 14 HR (bpm): 146 SBP (mmHg): 218 DBP (mmHg): 94 METS: --- Stage: STAGE 3 Duration (min): 1 min : 41 sec Speed (mph): 0.0 Grade (%): 0 HR (bpm): 154 SBP (mmHg): 218 DBP (mmHg): 94 METS: --- Stage: RECOVERY Duration (min): 0 min : 18 sec Speed (mph): 0.0 Grade (%): 0 HR (bpm): 152 SBP (mmHg): 218 DBP (mmHg): 94 METS: --- Stage: RECOVERY Duration (min): 1 min : 18 sec Speed (mph): 0.0 Grade (%): 0 HR (bpm): 115 SBP (mmHg): 218 DBP (mmHg): 94 METS: --- Stage: RECOVERY Duration (min): 2 min : 18 sec Speed (mph): 0.0 Grade (%): 0 HR (bpm): 92 SBP (mmHg): 218 DBP (mmHg): 94 METS: --- Stage: RECOVERY Duration (min): 3 min : 18 sec Speed (mph): 0.0 Grade (%): 0 HR (bpm): 93 SBP (mmHg): 163 DBP (mmHg): 87 METS: --- Stage: RECOVERY Duration (min): 4 min : 3 sec Speed (mph): 0.0 Grade (%): 0 HR (bpm): 88 SBP (mmHg): 163 DBP (mmHg): 87 METS: --- Rest HR: 70 bpm Peak HR: 155 bpm Rest Sys BP: 132 mmHg Peak Sys BP: 218 mmHg Max Pred HR: 166 bpm % Max Pred HR: 93 % Target HR: 141 bpm Max RPP: 33,790 bpm*mmHg Crouch Score: -1 BP Response: Patient exhibited a hypertensive response with stress Termination Reason: Reached target heart rate or workload Cardiac Symptoms: Shortness of breath Max ST Seg Deviation: 2 mm Total Time: 7 min : 41 sec Rest Green BP: 82 mmHg Peak Green BP: 94 mmHg Angina Score: None Total METS: 10.1 Resting ECG Sinus rhythm. Stress ECG No ST changes. Arrhythmias NOne. Report Signatures Stress ECG Echo
--- OUTSIDE RECORDS SUMMARY | 2025-05-09 09:51 | XMS_ITS | Encounter Summary ---
Author Organization [facility] Facility Care Team Providers Care Freight Broker Agent Name Role Phone Brian Fagan MD Primary Care Provider [phone] Katerina Greco NP Primary Care Provider [phone] Encounter Details Date Type Department Care Team (Latest Contact Info) Description 01/05/2017 Orders Only [facility] CLINCONV ProviderTerrie MD [address] [place], [place] [id number] Social History Tobacco Use Types Packs/Day Years Used Date Smoking Tobacco: Never Assessed Comments Unknown Sex and Gender Information Value Date Recorded Sex Assigned at Not on file Legal Sex Female 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 Historical Provider CV CARDIAC SERVICES [facility]IN [facility]BA Final Result documented in this encounter Visit Diagnoses Not on filedocumented in this encounter Care Teams Freight Broker Agent Relationship Specialty Start Date End Date Brian Fagan MD [address] [place] [address] PCP - General Internal Medicine 09/26/21 03/15/24 Katerina Greco NP [address] [place] [address] PCP - General Cardiovascular Disease 03/16/24 documented as of this encounter
--- OUTSIDE RECORDS SUMMARY | 2025-05-09 09:51 | XMS_ITS | Encounter Summary ---
Author Organization 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 Historical Provider CV CARDIAC SERVICES COLLIN ALBA Final Result documented in this encounter Visit Diagnoses Not on filedocumented in this encounter Care Teams Under Cutting Machine Operator Relationship Specialty Start Date End Date Brian Fagan MD [address] [place] [address] PCP - General Internal Medicine 09/26/21 03/15/24 Katerina Greco NP [address] [place] [address] PCP - General Cardiovascular Disease 03/16/24 documented as of this encounter
--- OUTSIDE RECORDS SUMMARY | 2025-05-09 09:51 | XMS_ITS | Encounter Summary ---
Author Organization [facility] Facility Care Team Providers Care Executive Director Of Nursing Name Role Phone Brian Fagan MD Primary Care Provider [phone] Katerina Greco NP Primary Care Provider [phone] Encounter Details Date Type Department Care Team (Latest Contact Info) Description 12/28/2016 Orders Only [facility] CLINCONV ProviderTerrie MD [address] [place], [place] [id number] Social History Tobacco Use Types Packs/Day Years Used Date Smoking Tobacco: Never Assessed Comments Unknown Sex and Gender Information Value Date Recorded Sex Assigned at Not on file Legal Sex Female 1:49 AM CLASSIFICATION OFFICER Gender Identity Not on file Sexual Orientation Not on file documented as of this encounter Plan of Treatment Not on file documented as of this encounter Procedures Procedure Name Priority Date/Time Associated Diagnosis Comments CARDIOLOGY REPORT 12/28/2016 12: 00 AM CLASSIFICATION OFFICER documented in this encounter Results * CARDIOLOGY REPORT (12/28/2016 12:00 AM CLASSIFICATION OFFICER) Anatomical Region Laterality Modality Other Narrative 12/28/2016 12:00 AM CLASSIFICATION OFFICER Ordered by an unspecified provider. Historical Provider [facility] Final Result documented in this encounter Visit Diagnoses Not on filedocumented in this encounter Care Teams Executive Director Of Nursing Relationship Specialty Start Date End Date Brian Fagan MD [address] [place] [address] PCP - General Internal Medicine 09/26/21 03/15/24 Katerina Greco NP [address] [place] [address] PCP - General Cardiovascular Disease 03/16/24 documented as of this encounter
--- OUTSIDE RECORDS SUMMARY | 2025-05-09 09:51 | XMS_ITS | Clinical Summary ---
Author Organization [facility] Address [address] [place] [address] Care Team Providers Care Senior Clinical Data Manager Name Role Phone Nohemy Bonilla MD Primary Care Provider Source Comments [facility],non-owned Affiliates and Associated Physician Practices is amultiple site organization consisting of ambulatory clinics and hospital sitesin [place], [place], [place] and [place]. This disclosure is being madepursuant to the Care Everywhere program and may not contain all information available regarding this patient. Last updated 18.[facility] Allergies Active Allergy Reactions Criticality Noted Date Comments Penicillins Anaphylaxis 12/26/2009 Social History Tobacco Use Types Packs/Day Years Used Date Smoking Tobacco: Never Assessed Comments Unknown Sex and Gender Information Value Date Recorded Sex Assigned at Not on file Legal Sex Female 8:17 AM CERTIFIED MEDICAL DOSIMETRIST Gender Identity Not on file Sexual Orientation [...] age to complete this topic Care Teams Senior Clinical Data Manager Relationship Specialty Start Date End Date Nohemy Bonilla MD [address] [address] PCP - General 12/26/09
--- OUTSIDE RECORDS SUMMARY | 2025-05-09 09:51 | XMS_ITS | Encounter Summary ---
Author Organization [facility] Facility Care Team Providers Care Assembler Knife Name Role Phone Brian Fagan MD Primary Care Provider [phone] Katerina Greco NP Primary Care Provider [phone] Encounter Details Date Type Department Care Team (Latest Contact Info) Description 12/29/2016 Orders Only [facility] CLINCONV ProviderTerrie MD [address] [place], [place] [id number] Social History Tobacco Use Types Packs/Day Years Used Date Smoking Tobacco: Never Assessed Comments Unknown Sex and Gender Information Value Date Recorded Sex Assigned at Not on file Legal Sex Female 1:49 AM BOXING MACHINE OPERATOR Gender Identity Not on file Sexual Orientation Not on file documented as of this encounter Plan of Treatment Not on file documented as of this encounter Procedures Procedure Name Priority Date/Time Associated Diagnosis Comments CARDIOLOGY REPORT 01/07/2017 12: 00 AM BOXING MACHINE OPERATOR CARDIOLOGY REPORT 12/29/2016 12: 00 AM BOXING MACHINE OPERATOR documented in this encounter Results * CARDIOLOGY REPORT (01/07/2017 12:00 AM BOXING MACHINE OPERATOR) Anatomical Region Laterality Modality Other Narrative 01/07/2017 12:00 AM BOXING MACHINE OPERATOR Ordered by an unspecified provider. Historical Provider [facility] Final Result * CARDIOLOGY REPORT (12/29/2016 12:00 AM BOXING MACHINE OPERATOR) Anatomical Region Laterality Modality Other Narrative 12/29/2016 12:00 AM BOXING MACHINE OPERATOR Ordered by an unspecified provider. us Historical Provider [facility] Final Result documented in this encounter Visit Diagnoses Not on filedocumented in this encounter Care Teams Assembler Knife Relationship Specialty Start Date End Date Brian Fagan MD [address] [place] [address] PCP - General Internal Medicine 09/26/21 03/15/24 Katerina Greco NP [address] [place] [address] PCP - General Cardiovascular Disease 03/16/24 documented as of this encounter
--- OUTSIDE RECORDS SUMMARY | 2025-05-09 09:51 | XMS_ITS | Encounter Summary ---
Author Organization [facility] Facility Care Team Providers Care Manager Universal Name Role Phone Brian Fagan MD Primary Care Provider [phone] Katerina Greco NP Primary Care Provider [phone] Encounter Details Date Type Department Care Team (Latest Contact Info) Description 01/06/2017 Orders Only [facility] CLINCONV ProviderTerrie MD [address] [place], [place] [id number] Social History Tobacco Use Types Packs/Day Years Used Date Smoking Tobacco: Never Assessed Comments Unknown Sex and Gender Information Value Date Recorded Sex Assigned at Not on file Legal Sex Female 1:49 AM CONTRACT AGENT Gender Identity Not on file Sexual Orientation Not on file documented as of this encounter Plan of Treatment Not on file documented as of this encounter Procedures Procedure Name Priority Date/Time Associated Diagnosis Comments CARDIOLOGY REPORT 01/07/2017 12: 00 AM CONTRACT AGENT documented in this encounter Results * CARDIOLOGY REPORT (01/07/2017 12:00 AM CONTRACT AGENT) Anatomical Region Laterality Modality Other Narrative 01/07/2017 12:00 AM CONTRACT AGENT Ordered by an unspecified provider. Historical Provider [facility] Final Result documented in this encounter Visit Diagnoses Not on filedocumented in this encounter Care Teams Manager Universal Relationship Specialty Start Date End Date Brian Fagan MD [address] [place] [address] PCP - General Internal Medicine 09/26/21 03/15/24 Katerina Greco NP [address] [place] [address] PCP - General Cardiovascular Disease 03/16/24 documented as of this encounter
--- OUTSIDE RECORDS SUMMARY | 2025-05-09 09:51 | XMS_ITS | Data Portability ---
Author Organization [facility] [employer] Address [address] [place] [address] Care Team Providers Care Hydrometeorology Teacher Name Role Phone BRENDA CHAIDEZ Primary Care Provider [phone] Assessment Encounter Date Assessment Date Assessment LastModified [...] have any questions please call or email. [email or web address] Not available 06/05/2023 14:27:11 10/26/2024 10/26/2024 Annual [...] and benefits continue while having hot flashes [email or web address] Not available 10/26/2024 17:50:50 Plan of Treatment Reminders Order Date Submit Date Provider Last Modified By Organization Details Last Modified Time Details Appointments [facility] 2024 03:15P M Antonieta Mcclendon CNM Not available Not available Not available Lab urinaly sis, dipstic k 2021 [facility], [address], [address], [place], [address], 06/24/2022 10:39:12 CBC w/ auto diff 2021 022 [facility] (Lab), [address], [place], [address], 05/10/2022 02:22:13 CMP, serum or plasma 2021 022 [facility] (Lab), [address], [place], [address], 05/10/2022 02:22:15 lipid panel, blood 2021 022 [facility] (Lab), [address], [place], [address], 05/10/2022 02:22:15 TSH, serum or plasma 2021 [facility] (Lab), [address], [place], [address], 05/10/2022 02:22:15 vitamin D, 25-hydr oxy, total, serum 2021 [facility] (Lab), [address], [place], [address], 05/10/2022 02:22:16 HbA1c (hemogl obin A1c), blood 2021 [facility] (Lab), [address], [place], [address], 05/10/2022 02:22:16 Referral None recorde d. Procedures None recorde d. Surgeries None recorde d. Imaging MAMMO, screeni shasha barkley al 2023 024 [facility] Imaging, [address], [place], [address], 11/24/2024 21:10:15 MAMMO, screeni shasha barkley al [email or web address] [place] [address] Imaging, [address], [place], [address], 05/15/2022 12:57:23 Medication Orders estradi ol 1 mg tablet 2023 024 [id number], [address], [place], [id number], 10/26/2024 17:51:23 estradi ol 1 mg tablet [address] [facility][id number], [address], [place], [id number], 06/05/2023 14:29:12 estradi ol 1 mg tablet 2022 023 [id number], [address], [place], [place], [id number], 04/03/2023 14:28:36 Patient TargetsNo targets recorded. Patient InstructionsNo instructions recorded. Reason for Referral None Reported. Results Created Date Observation Date Name Description Value Unit Range Abnormal Flag Note LastModifiedBy Organization Detail LastModifiedTime 05/09/20 22 05/09/2022 CBC W/DIF F WBC 4.6 10'3/ uL 3.6-10 .2 Not Available [facility] (Lab) [address], [place], [address], 05/10/2022 02:22:11 05/09/20 22 05/09/2022 CBC W/DIF F RBC 4.70 10'6/ uL (based on docume nted legal sex) 4.10-5 .30 Not Available [facility] (Lab) [address], [place], [address], 05/10/2022 02:22:11 05/09/20 22 05/09/2022 CBC W/DIF F HGB 14.6 g/dL (based on docume nted legal sex) 11.9-1 5.8 Not Available [facility] (Lab) [address] [place], [address], 05/10/2022 02:22:11 05/09/20 22 05/09/2022 CBC W/DIF F HCT 44.9 % (based on docume nted legal sex) 37.4-4 8.3 Not Available [facility] (Lab) [address] [place], [address], 05/10/2022 02:22:11 05/09/20 22 05/09/2022 CBC W/DIF F MCV 95.0 fL 82.0-9 9.0 Not Available [facility] (Lab) [address] [place], [address], 05/10/2022 02:22:11 05/09/20 22 05/09/2022 CBC W/DIF F MCH 31.0 pg 27.0-3 3.0 Not Available [facility] (Lab) [address], [place], [address], 05/10/2022 02:22:11 05/09/20 22 05/09/2022 CBC W/DIF F MCHC 33.0 g/dL 32.0-3 6.0 Not Available [facility] (Lab) [address], [place], [address], 05/10/2022 02:22:11 05/09/20 22 05/09/2022 CBC W/DIF F RDW 13.0 % 11.0-1 5.0 Not Available [facility] (Lab) [address], [place], [address], 05/10/2022 02:22:11 05/09/20 22 05/09/2022 CBC W/DIF F plt 279 10'3/ uL 150-45 0 Not Available [facility] (Lab) [address], [place], [address], 05/10/2022 02:22:11 05/09/20 22 05/09/2022 CBC W/DIF F MPV 11.0 fL 9.8-12 .7 Not Available [facility] (Lab) [address], [place], [address], 05/10/2022 02:22:11 05/09/20 22 05/09/2022 CBC W/DIF F NRBC's 0.00 % 0 Not Available [facility] (Lab) [address], [place], [address], 05/10/2022 02:22:11 05/09/20 22 05/09/2022 CBC W/DIF F absolute NRBCs 0.0 10'3/ uL 0 Not Available [facility] (Lab) [address], [place], [address], 05/10/2022 02:22:11 05/09/20 22 05/09/2022 CBC W/DIF F neutrophils 40.0 % 37.0-7 2.0 Not Available [facility] (Lab) [address], [place], [address], 05/10/2022 02:22:11 05/09/20 22 05/09/2022 CBC W/DIF F lymphocytes 45.0 % 16.0-4 8.0 Not Available [facility] (Lab) [address], [place], [address], 05/10/2022 02:22:11 05/09/20 22 05/09/2022 CBC W/DIF F monocytes 9.0 % 4.0-14 .0 Not Available [facility] (Lab) [address], [place], [address], 05/10/2022 02:22:11 05/09/20 22 05/09/2022 CBC W/DIF F eosinophils 4.0 % 0.0-9. 0 Not Available [facility] (Lab) [address], [place], [address], 05/10/2022 02:22:11 05/09/20 22 05/09/2022 CBC W/DIF F basophils 2.0 % 0.0-2. 0 Not Available [facility] (Lab) [address], [place], [address], 05/10/2022 02:22:11 05/09/20 22 05/09/2022 CBC W/DIF F immature granulocytes 0.0 % no define d refere nce range Not Available [facility] (Lab) [address], [place], [address], 05/10/2022 02:22:11 05/09/20 22 05/09/2022 CBC W/DIF F absolute neutrophils 1.8 10'3/ uL 1.1-6. 0 Not Available [facility] (Lab) [address], [place], [address], 05/10/2022 02:22:11 05/09/20 22 05/09/2022 CBC W/DIF F absolute lymphocytes 2.1 10'3/ uL 0.7-3. 4 Not Available [facility] (Lab) [address], [place], [address], 05/10/2022 02:22:11 05/09/20 22 05/09/2022 CBC W/DIF F absolute monocytes 0.4 10'3/ uL 0.3-1. 0 Not Available [facility] (Lab) [address], [place], [address], 05/10/2022 02:22:11 05/09/20 22 05/09/2022 CBC W/DIF F absolute eosinophils 0.2 10'3/ uL 0.0-0. 6 Not Available [facility] (Lab) [address], [place], [address], 05/10/2022 02:22:11 05/09/20 22 05/09/2022 CBC W/DIF F absolute basophils 0.1 10'3/ uL 0.0-0. 1 Not Available [facility] (Lab) [address], [place], [address], 05/10/2022 02:22:11 05/09/20 22 05/09/2022 CBC W/DIF [...] resul ts are expec jacquie. Not Available [facility] (Lab) [address], [place], [address], 05/10/2022 02:22:11 05/09/20 22 05/09/2022 LIPID PANEL ,AMA (LDL- CALC) total cholesterol 201 mg/dL 0-199 high Not Available [facility] (Lab) [address] [place], [address], 05/10/2022 02:22:15 05/09/20 22 05/09/2022 LIPID PANEL ,AMA (LDL- CALC) triglyceride s 87 mg/dL 0.00-1 50.00 NCEP Refer ence Value s for Trigl yceri tyler: Shaylee l: <150 mg/dL Borde rline High: 150 - 199 mg/dL High: 200 - 499 mg/dL Very High: >/= 500 mg/dL Not Available [facility] (Lab) [address] [place], [address], 05/10/2022 02:22:15 05/09/20 22 05/09/2022 LIPID PANEL ,AMA (LDL- CALC) HDL cholesterol 68 mg/dL >40 Not Available [facility] (Lab) [address] [place], [address], 05/10/2022 02:22:15 05/09/20 22 05/09/2022 LIPID PANEL [...] mg/dL , HDL <40 mg/dL Not Available [facility] (Lab) [address] [place], [address], 05/10/2022 02:22:15 05/09/20 22 05/09/2022 LIPID PANEL ,AMA (LDL- CALC) non-HDL cholesterol 133 mg/dL no refere nce range A reaso nable goal for non-H DL lilia stero l is one that is 30 mg/dL highe r than the LDL lilia stero l goal. Not Available [facility] (Lab) [address], [place], [address], 05/10/2022 02:22:15 05/09/20 22 05/09/2022 LIPID PANEL ,AMA (LDL- CALC) chol/HDL ratio 3.0 . 0.0-5. 0 Not Available [facility] (Lab) [address], [place], [address], 05/10/2022 02:22:15 05/09/20 22 05/09/2022 CMP(C OMPRE HENSI VE METAB OLIC PANEL ) sodium 142 mmol/ L 133-14 6 Not Available [facility] (Lab) [address], [place], [address], 05/10/2022 02:22:15 05/09/20 22 05/09/2022 CMP(C OMPRE HENSI VE METAB OLIC PANEL ) potassium 4.4 mmol/ L 3.5-5. 1 Not Available [facility] (Lab) [address], [place], [address], 05/10/2022 02:22:15 05/09/20 22 05/09/2022 CMP(C OMPRE HENSI VE METAB OLIC PANEL ) chloride 104 mmol/ L 98-107 Not Available [facility] (Lab) [address] [place], [address], 05/10/2022 02:22:15 05/09/20 22 05/09/2022 CMP(C OMPRE HENSI VE METAB OLIC PANEL ) carbon dioxide 28 mmol/ L 21-31 Not Available [facility] (Lab) [address], [place], [address], 05/10/2022 02:22:15 05/09/20 22 05/09/2022 CMP(C OMPRE HENSI VE METAB OLIC PANEL ) anion gap 10 mmol/ L 4-13 Not Available [facility] (Lab) [address], [place], [address], 05/10/2022 02:22:15 05/09/20 22 05/09/2022 CMP(C OMPRE HENSI VE METAB OLIC PANEL ) blood urea nitrogen 22 mg/dL 7-25 Not Available [facility] (Lab) [address], [place], [address], 05/10/2022 02:22:15 05/09/20 22 05/09/2022 CMP(C OMPRE HENSI VE METAB OLIC PANEL ) creatinine 0.90 mg/dL 0.60-1 .30 Not Available [facility] (Lab) [address], [place], [address], 05/10/2022 02:22:15 05/09/20 22 05/09/2022 CMP(C OMPRE HENSI VE METAB OLIC PANEL ) egfrcr (CKD-epi 2020) 77 mL/mi n/1.7 3_m2 >=60 Not Available [facility] (Lab) [address], [place], [address], 05/10/2022 02:22:15 05/09/20 22 05/09/2022 CMP(C OMPRE HENSI VE METAB OLIC PANEL ) calcium 9.1 mg/dL 8.3-10 .5 Not Available [facility] (Lab) [address], [place], [address], 05/10/2022 02:22:15 05/09/20 22 05/09/2022 CMP(C OMPRE HENSI VE METAB OLIC PANEL ) glucose 105 mg/dL 70-100 high Not Available [facility] (Lab) [address], [place], [address], 05/10/2022 02:22:15 05/09/20 22 05/09/2022 CMP(C OMPRE HENSI VE METAB OLIC PANEL ) protein, total 6.4 g/dL 6.4-8. 3 Not Available [facility] (Lab) [address], [place], [address], 05/10/2022 02:22:15 05/09/20 22 05/09/2022 CMP(C OMPRE HENSI VE METAB OLIC PANEL ) albumin 4.1 g/dL 3.5-5. 0 Not Available [facility] (Lab) [address], [place], [address], 05/10/2022 02:22:15 05/09/20 22 05/09/2022 CMP(C OMPRE HENSI VE METAB OLIC PANEL ) ALT 23 units /L 9-43 Not Available [facility] (Lab) [address], [place], [address], 05/10/2022 02:22:15 05/09/20 22 05/09/2022 CMP(C OMPRE HENSI VE METAB OLIC PANEL ) alkaline phosphatase 52 units /L 34-104 Not Available [facility] (Lab) [address], [place], [address], 05/10/2022 02:22:15 05/09/20 22 05/09/2022 CMP(C OMPRE HENSI VE METAB OLIC PANEL ) AST 18 units /L 13-39 Not Available [facility] (Lab) [address], [place], [address], 05/10/2022 02:22:15 05/09/20 22 05/09/2022 CMP(C OMPRE HENSI VE METAB OLIC PANEL ) bilirubin, total 0.5 mg/dL 0.2-1. 2 Not Available [facility] (Lab) [address], [place], [address], 05/10/2022 02:22:15 05/09/20 22 05/09/2022 TSH, REFLE X FREE T4 TSH 1.68 uIU/m L 0.30-5 .33 Not Available [facility] (Lab) [address] [place], [address], 05/10/2022 02:22:15 05/09/20 22 05/09/2022 VITAM IN D, 25-OH (TOTA L D2/D3 ) vitamin D, 25-hydroxy, total 71.0 NG/mL 30-80 NOTE: Defic iency : <20 ng/mL Insuf ficie ncy: 20-29 ng/mL Optim um Level : 30-80 ng/mL Possi ble Toxic ity: >80 ng/mL Most patie nts with toxic ity have level s >150 ng/mL . Not Available [facility] (Lab) [address], [place], [address], 05/10/2022 02:22:16 05/09/20 22 05/09/2022 HEMOG LOBIN [...] >8.0% Actio n sugtavares sterubina Not Available [facility] (Lab) [address], [place], [address], 05/10/2022 02:22:16 06/24/20 22 06/24/2022 CULTU RE: URINE result report SEE RESULT S BELOW abnormal Test: Cultu re: Urine Speci men Sourc e: Urine Voide d Speci men Type: Urine Speci men Date: 2021 10:44 AM Resul t Date: 2021 10:37 PM Resul t Statu s: Final resul t Abnor mal: Yes Resul jitendra Lab: [facility] [address] [facility] [address] Tel: CULTU RE ----- ----- ----- --- [...] <=2 ug/mL Susce ptibl e Not Available [facility] [address] [place], [address], 06/26/2022 23:40:39 06/24/20 22 06/24/2022 urina lysis , dipst ick Leukocytes 2+ Not Available Rani ibarra [address], [place], [address], 06/24/2022 10:37:50 06/24/20 22 06/24/2022 urina lysis , dipst ick Nitrite neg Not Available [employer] [address], [place], [address], 06/24/2022 10:37:50 06/24/20 22 06/24/2022 urina lysis , dipst ick Urobilinogen neg Not Available [facility] [address], [place], [address], 06/24/2022 10:37:50 06/24/20 22 06/24/2022 urina lysis , dipst ick Protein tr Not Available [employer] [address], [place], [address], 06/24/2022 10:37:50 06/24/20 22 06/24/2022 urina lysis , dipst ick pH 5 Not Available [employer] [address], [place], [address], 06/24/2022 10:37:50 06/24/20 22 06/24/2022 urina lysis , dipst ick Blood +++ Not Available [employer] [address], [place], [address], 06/24/2022 10:37:50 06/24/20 22 06/24/2022 urina lysis , dipst ick Specific [place] 1.015 Not Available [facility] [address], [place], [address], 06/24/2022 10:37:50 06/24/20 22 06/24/2022 urina lysis , dipst ick Ketone neg Not Available [employer] [address], [place], [address], 06/24/2022 10:37:50 07/26/20 22 06/24/2022 urina lysis , dipst ick Bilirubin 1+ Not Available [facility] [address], [place], [address], 06/24/2022 10:37:50 06/24/20 22 06/24/2022 urina lysis , dipst ick Glucose neg Not Available [employer] [address], [place], [address], 06/24/2022 10:37:50 06/24/20 22 06/24/2022 urina lysis , dipst ick Appearance cloudy Not Available [facility] [address], [place], [address], 06/24/2022 10:37:50 06/24/20 22 06/24/2022 urina lysis , dipst ick Color dark yellow Not Available [employer] [address], [place], [address], 06/24/2022 10:37:50 09/10/20 22 09/10/2022 MAMMO , scree genna, bilat eral No observ ation record ed. [facility] [employer] [facility] [address], [place], [address], 04/09/2023 12:07:47 09/10/20 22 09/10/2022 MAMMO , scree genna, bilat eral No observ ation record ed. [email or web address] [employer] [facility] [address], [place], [address], 06/22/2023 11:51:38 09/10/20 22 09/10/2022 MAMMO , scree genna, bilat eral No observ ation record ed. [email or web address] [employer] [facility] [address], [place], [address], 04/09/2023 12:08:16 09/14/20 23 09/14/2023 MAMMO , scree genna, digit al, bilat eral No observ ation record ed. [facility] [address], [place], [address], 09/16/2023 06:55:02 11/24/20 24 11/24/2024 MAMMO , scree genna, bilat eral No observ ation record ed. [facility] [address], [place], [address], 11/25/2024 11:09:07 Result Notes None recorded. Problems Name Problem SNOMED Code Status Onset Date Resolution Date Notes Provider Name and Address Organization Details Recorded Time Urinary tract infectio us disease 43140335 Completed 201304/15/2021 Urinary Tract Infectio n;Record ed Elsewher e: No [facility] S ource: EHR Flap Curer fernando: N Dilcia ce ID: 0001 Leonard lable Time: 04:45:00 PM Nohemy hartman [facility] 17:53:17 Menopaus e present [id number] Completed 201704/15/2021 vasomoto r sx;Recor ded Elsewher e: No Locat ion: [facility] S ource: EHR Flap Curer fernando: Prashanth Ha ce ID: 0001 Leonard lable Time: 03:30:00 PM Nohemy hartman [facility] 17:52:52 Menstrua tion finding Completed 201204/15/2021 Excessiv e or frequent menstrua tion;Rec orded Elsewher e: No Locat ion: [facility] S ource: EHR Fl[employer] Curer fernando: N Dilcia ce ID: 0001 Leonard lable Time: 08:15:00 AM Nohemy hartman [facility] 05/17/202 1 17:52:54 Uses IUD (intraut erine device) contrace ption [id number] Completed 201204/15/2021 Surveill ance of intraute rine contrace ptive device;R ecorded Elsewher e: No [facility] Flap Curer fernando: N Dilcia ce ID: 0001 Leonard lable Time: 03:15:00 PM Nohemy Giordano [facility] 1 17:52:[address] Concept Completed 201604/15/2021 Encntr for general adult medical exam w/o abnormal findings ;Recorde d Elsewher e: No Locat ion: [facility]: N Dilcia ce ID: 0001 Leonard lable Time: 01:30:00 PM Nohemy Giordano [facility] 1 17:53:07 Dysfunct ional uterine bleeding Completed 201204/15/2021 Other disorder s of menstrua tion and other abnormal bleeding from female genital tract;Re corded Elsewher e: No [facility]: N Dilcia ce ID: 0001 Leonard lable Time: 09:15:00 AM Nohemy Giordano [facility] [address] 17:52:[address] Concept Completed 201904/15/2021 Encntr for endbander exam (general ) (routine ) w/o abn findings ;Recorde d Elsewher e: No Locat ion: [facility]: [facility]: N Renati ce ID: 0001 Leonard lable Time: 11:15:00 AM Nohemy Giordano [facility] 1 17:53:09 Irregula r intermen strual bleeding [id number] Completed 201204/15/2021 Metrorrh agia;Rec orded Elsewher e: No Locat ion: [facility] S ource: EHR Flap Curer fernando: N Practi ce ID: 0001 Leonard lable Time: 02:15:00 PM Nohemy hartman, [facility] 17:52:45 Screenin g for malignan t neoplasm of rectum Completed 201604/15/2021 Encounte r for screenin g for malignan t neoplasm of rectum;R ecorded Elsewher e: No Locat ion: [facility]: [facility]: N Practi ce ID: 0001 Leonard lable Time: 01:30:00 PM Nohemy Giordano [facility], [facility] 17:53:06 Speciali zed medical examinat ion Completed 201304/15/2021 Gynecolo gical Examinat ion;Panchito rded Elsewher e: No Locat ion: [facility]: [facility]: N Practi ce ID: 0001 Leonard lable Time: 01:30:00 PM Nohemy Giordano minnie [facility] 17:53:14 Hirsutis m [id number] Completed 201504/15/2021 Hirsusherice m;Record ed Elsewher e: No Locat ion: [facility]: [facility]: N Practi ce ID: 0001 Leonard lable Time: 02:45:00 PM Nohemy hartman [facility] 17:52:40 Insertio n of intraute rine contrace ptive device Completed 201204/15/2021 INSERTIO N OF IUD;Panchito rded Elsewher e: No Locat ion: [facility] S ource: EHR Flap Curer fernando: N Practi ce ID: 0001 Leonard lable Time: 03:00:00 PM Nohemy Giordano minnie [facility] 17:52:43 Dispropo rtion of reconstr ucted breast [id number] Completed 201804/15/2021 Dispropo rtion of reconstr ucted breast;R ecorded Elsewher e: No Locat ion: [facility] S ource: EHR Flap Curer fernando: N Renati ce ID: 0001 Leonard lable Time: 09:45:49 AM Nohemy hartman, [facility] 17:52:29 Dysmenor carmen [id number] Completed 201204/15/2021 Dysmenor carmen;Rec orded Elsewher e: No Locat ion: [facility] S ource: EHR Flap Curer fernando: N Renati ce ID: 0001 Leonard lable Time: 08:30:00 AM Nohemy hartman, [facility] 17:52:32 Pregnanc y test negative [id number] Completed 201204/15/2021 Pregnanc y examinat ion or test, negative result;R ecorded Elsewher e: No Locat ion: [facility] S ource: EHR Flap Curer fernando: N Dilcia ce ID: 0001 Leonard lable Time: 03:00:00 PM Nohemy hartman, [facility] 17:52:58 Finding of general energy [id number] Completed 201504/15/2021 Fatigue; Recorded Elsewher e: No Locat ion: [facility] S ource: EHR Flap Curer fernando: N Renati ce ID: 0001 Leonard lable Time: 02:45:00 PM Nohemy hartman, [facility] 17:52:38 Postoper ative follow-u p visit Completed 201304/15/2021 Follow-u p examinat ion, followin g unspecif ied surgery; Recorded Elsewher e: No Locat ion: [facility] S ource: EHR Flap Curer fernando: Y Dilcia ce ID: 0001 Leonard lable Time: 04:45:00 PM Nohemy hartman [facility] 17:52:56 Screenin g for malignan t neoplasm of cervix Completed 201304/15/2021 Screenin g for malignan t neoplasm s of the cervix;R ecorded Elsewher e: No [facility]: EHR Flap Curer fernando: Y Practi ce ID: 0001 Leonard lable Time: 01:30:00 PM Nohemy hartman, [facility] 17:53:02 Dyspareu julio [id number] Completed 201204/15/2021 Dyspareu julio;Panchito rded Elsewher e: No Locat ion: [facility] S ource: EHR Flap Curer fernando: N Practi ce ID: 0001 Leonard lable Time: 08:15:00 AM Nohemy Giordano minnie, [facility] 17:52:34 Premenop ausal menorrha kimberly Completed 201204/15/2021 Premenop ausal menorrha kimberly;Panchito rded Elsewher e: No Locat ion: [facility] S ource: EHR Flap Curer fernando: N Practi ce ID: 0001 Leonard lable Time: 08:30:00 AM Nohemy hartman [facility] 17:53:00 Menopaus al symptom [id number] Completed 201204/15/2021 Menopaus al or female climacte chano states;R ecorded Elsewher e: No Locat ion: [facility] S ource: EHR Flap Curer fernando: N Practi ce ID: [id number] Leonard lable Time: 08:30:00 AM Nohemy hartman [facility] 17:52:50 Evaluati on finding [id number] Completed 201804/15/2021 Oth abn and inconclu sive findings on dx imaging of breast;R ecorded Elsewher e: No [facility]: EHR Flap Curer fernando: N Practi ce ID: [id number] Leonard lable Time: 09:45:49 AM Nohemy hartman [facility] 17:52:27 Body mass index 30+ - obesity [id number] Completed 201604/15/2021 Body mass index (BMI) 34.0-34. 9, adult;Re corded Elsewher e: No Locat ion: Fazal dyer [facility] S ource: EHR Flap Curer fernando: N Practi ce ID: [id number] Leonard lable Time: 01:30:00 PM Nohemy hartman [facility] 17:52:25 Uterine leiomyom a [id number] Completed 201304/15/2021 Leiomyom a of uterus, unspecif ied;Prac lilo ID: [id number] Nohemy hartman [facility] 17:53:20 Dysuria [id number] Completed 201604/15/2021 Dysuria; Practice ID: [id number] Nohemy hartman [facility] 17:52:36 Problem Notes None recorded. Procedures Surgical History Date Name Laterality Status Provider Name and Address Organization Details Recorded Time 10/26/20 24 Date of Last Pap Smear completed Nohemy Giordano [facility] 10/26/2024 16:43:40 09/10/20 22 Date of Last Mammogram completed Nohemy Giordano [facility] 06/05/2023 10:56:28 06/27/20 20 completed Sydniemasood Whittaker [facility] 04/16/2021 11:36:20 05/10/20 14 Total Hysterectomy completed [facility] 04/03/2023 14:28:57 07/22/20 13 endometrial biopsy completed Nohemy Giordano [facility] 04/15/2021 17:46:14 11/30/19 08 cervical polypectomy completed [facility] 04/15/2021 17:43:44 11/30/19 07 Knee arthroscopy/surg john completed [facility] 04/15/2021 17:40:37 11/30/19 04 procedure on wrist completed [facility] 04/15/2021 17:39:57 11/30/19 03 procedure on wrist completed [facility] 04/15/2021 17:39:36 11/30/18 91 Breast reduction completed [facility] 04/15/2021 17:38:30 Imaging Results None recorded. Procedure Notes None recorded. Medical Equipment None Reported. Allergies Allergen ID Allergen Name Allergen Category Reaction Reaction Severity Criticality Documentation Date Start Date Code Code System Note Provider Name and Address Organization Details Recorded Time 94227 Product containin g penicilli n (product) medicatio n Not available Not available Not available 11/16/2020 30583 8001 SNOMED Comme nt: [facility]; [facility] 14:20:45 Medications Name Sig Start [...] Elsewher e: Yes Loca tion: Fazal dyer [facility] odify By: wen Lawrence r DateTime : 06/21/20 13 08:30:00 AM Not Available Not Available Not Available folic acid 20 mg capsule active Prescrib ed Elsewher e: Yes Loca tion: Fazal dyer [facility] odify By: wen Lawrence r DateTime : [...] Elsewher e: Yes Loca tion: Fazal dyer [facility] odify By: megan davis DateTime : 06/15/20 01:30:00 PM Not Available Not Available Not Available levothyro xine 25 mcg tablet take 1 tablet by oral route every day 02/04 completed Prescrib ed Elsewher e: Yes Loca tion: Fazal dyer [facility] odify By: megan davis DateTime : 06/15/20 01:30:00 PM Not Available Not Available Not Available progester one 50 mg/mL intramusc ular oil inject 0.1 millilit er by intramus cular route every day 02/04 completed Prescrib ed Elsewher e: Yes Loca tion: Fazal dyer [facility] odify By: megan davis DateTime : 06/15/20 17 01:30:00 PM Not Available Not Available Not Available Metrogel Vaginal 0.75 % (37.5 mg/5 gram) insert 1 applicat orful by vaginal route every day at bedtime 05/22 completed Prescrib ed Elsewher e: No Locat ion: Fazal dyer [facility] odify By: tawrigle y Encoun ter DateTime [...] Prescrib ed Elsewher e: No Locat ion: [facility] odify By: laura Dyer ncounter DateTime : 05/22/20 14 04:45:00 PM Not Available Not Available Not Available Motrin 100 mg/5 mL oral suspensio n take 10 millilit er by oral route every 6 hours as needed with food 06/28 completed Prescrib ed Elsewher e: Yes Loca tion: [facility] odify By: yesica hwangunter DateTime : 02/28/20 [...] Prescrib ed Elsewher e: Yes Loca tion: [facility] odify By: jjkline Howard rangel DateTime : [...] Elsewher e: No Locat ion: Olivier manisha [facility] odify By: laura whitehead DateTime : 03/10/20 17 04:45:00 PM Not Available Not Available Not Available nitrofura ntoin monohydra te/macroc rystals 100 mg capsule TAKE ONE CAPSULE BY MOUTH EVERY TWELVE HOURS WITH FOOD 10/26 completed Not Available Not Available Not Available magnesium active Not Available Not Malou ilable Not Available Vitamin D active Not Available Not Malou ilable Not Available dietary supplemen t 06/05 completed AMBEREN Not Available Not Available Not Available Calcium Plus 600 mg-10 mcg (400 unit) tablet 2015 active Prescrib ed Elsewher e: Yes Loca tion: Fazal dyer [facility] odify By: laura whitehead DateTime : 03/27/20 16 02:45:00 PM Not Available Not Available Not Available Zyrtec 10 mg capsule active Prescrib ed Elsewher e: Yes [facility] By: [email or web address] Lawrence r DateTime : [...] Updated DateTime 04/03/2023 160.02 cm 38.8 kg/m2 52256.73 g 134 mm[Hg] 86 mm[Hg] Sydnie Whittaker [facility] 3 14:19:07 Date Recorded Body height Body mass index (BMI) Body weight Systolic blood pressure Diastolic blood pressure Provider Name and Address Organization Details Last Updated DateTime 05/05/2022 160.02 cm 37.9 kg/m2 90520.77 g 128 mm[Hg] 76 mm[Hg] Doris Banuelos [facility] 2 14:32:21 Date Recorded Body height Body mass index (BMI) Body weight Systolic blood pressure Diastolic blood pressure Provider Name and Address Organization Details Last Updated DateTime 06/05/2023 160.02 cm 38.1 kg/m2 49860.36 g 147 mm[Hg] 90 mm[Hg] Nohemy Giordano [facility] 3 14:13:38 Date Recorded Body height Provider Name an d Address Organization Details Last Updated DateTime 06/24/2022 160.02 cm Catia Morrow [facility] 06/24/2022 10:37:04 Date Recorded Body height Body mass index (BMI) Body weight Systolic blood pressure Diastolic blood pressure Provider Name and Address Organization Details Last Updated DateTime 10/26/2024 160.02 cm 37.4 kg/m2 38357.99 g 132 mm[Hg] 84 mm[Hg] Nohemy Giordano [facility] 4 16:42:46 Social History Question Answer Notes LastModified by Organizat ion Details LastModified Time Tobacco Smoking Status Never Smoker Nohemy Giordano [facility], [facility] 01/15/2022 14:17:13 Do You Have An Advance Directive? No [email or web address] Information n ot available 01/15/2022 If You Are , What Was Your Level Of Alcohol Consumption Prior To ? None [email or web address] Information not available 01/15/2022 How Many Years Have You Consumed Alcohol? 30 Information not available 01/15/2022 Are You Blind Or Do You Have Difficulty Seeing? No [email or web address] Information n ot available 06/28/2021 What Is Your Level Of Caffeine Consumption? Occasional [email or web address] Information not available 06/28/2021 How Much Tobacco Do You Chew? None [email or web address] Information not available 01/15/2022 In The 14 Days Before Symptom Onset, Have You Had Close Contact With A Laboratory-confirm ed COVID-19 While That Case Was Ill? No [email or web address] Information n ot available 06/28/2021 In The 14 Days Before Symptom Onset, Have You Had Close Contact With A Person Who Is Under Investigation For COVID-19 While That Person Was Ill? No [email or web address] Information not available 06/28/2021 Have You Been To An Area Known To Be High Risk For COVID-19? No [email or web address] Information not available 06/28/2021 Are You Deaf Or Do You Have Serious Difficulty Hearing? No [email or web address] Information not available 06/28/2021 What Type Of Diet Are You Following? REGULAR [email or web address] Information n ot available 06/28/2021 What Is The Highest Grade Or Level Of School You Have Completed Or The Highest Degree You Have Received? [id number] [email or web address] Information not available 01/15/2022 Are There Any Guns Present In Your Home? No [email or web address] Information not available 01/15/2022 Do You Use Protection During Sex? No [email or web address] Information not available 01/15/2022 Do You Use Your Seat Belt Or Car Seat Routinely? Yes [email or web address] Information not available 06/28/2021 Do You Have Smoke And Carbon Monoxide Detectors In Your Home? Yes [email or web address] Information not available 06/28/2021 How Much Tobacco Do You Smoke? No [email or web address] Information not available 01/15/2022 Do You Use Sunscreen Routinely? Yes [email or web address] Information not available 06/28/2021 Has Tobacco Cessation Counseling Been Provided? No Information not available 01/15/2022 Have You Used IV Drugs? No [email or web address] Information not available 01/15/2022 Do You Have Difficulty Walking Or Climbing Stairs? No [email or web address] Information not available 01/15/2022 Sex: Unknown Functional Status Question Answer Note LastModified by Organizat ion Details LastModified Time Do you use any illicit or recreational drugs? No [email or web address] Information not available 06/28/2021 Do you or have you ever used any other forms of tobacco or nicotine? No [email or web address] Information not available 01/15/2022 What is your level of alcohol consumption? Occasional [email or web address] Information not available 06/28/2021 Are you able to walk? YESWOREST [email or web address] Information not available 06/28/2021 Are you able to care for yourself? 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 No [email or web address] Information not available 01/15/2022 What is your exercise level? Moderate [email or web address] Information not available 01/15/2022 Mental Status Question Answer Note LastModified by Organization D etails LastModified Time Do you feel stressed (tense, restless, nervous, or anxious, or unable to sleep at night)? [id number] [email or web address] Information not available 01/15/2022 Family History Relationship Description Onset Age of this Age Resolved Age Notes LastModified by Organization Details LastModified Time Mother Malignant tumor of breast 30 [email or web address] Not available 01/15 14:17:12 Mother Diabetes mellitus [email or web address] Not available 04/15 17:37:26 Mother Malignant tumor of cervix [email or web address] Not available 04/15 17:37:40 Mother Female infertility [email or web address] Not available 14:17:12 Father Diabetes mellitus [email or web address] Not available 04/15 17:37:47 Father Malignant melanoma of skin 20 Moles from 20yo-4 0yo [email or web address] Not available 01/15/2022 14:17:12 Medical History Condition Response Allergies (Food, seasonal, environmental ) Y Other N Breast Cancer N Drug/Latex Allergies/Reactions N Blood Transfusion N Dermatologic Disorders N Lung Disease N Defects or Inherited Disease N Breast Problem Y Gestational Diabetes N Hematologic disorders N Anesthesia Complications N History of STI Y Deep Vein Thrombosis N Polycystic ovary syndrome N Anxiety Disorder N Autoimmune disease N Arthritis N Infertility N Polyps Y Acid Reflux (GERD) Y History of abnormal pap N Cancer N Stroke N Varicosities N Neurologic/Epilepsy N Endometriosis N High Cholesterol N Headaches Y Fibromyalgia N Kidney Disease N Heart Problems N Kidney or Bladder Problems N Thyroid Problems N GI Problems N Eating Disorder [...] SNOMED-CT Code Diagnosis ICD10 Code Diagnosis Note [id number] Antonieta Mcclendon [facility] [address],[place] [address] 04/16/2021 11:27:57 04/16/2021 12:47:27 Gynecologic examination 99425134 Z01.419 [id number] Antonieta Mcclendon [facility] [address],[place] [address] 06/28/2021 11:12:06 06/28/2021 13:31:53 Overweight 347102286 E66.3 [id number] Antonieta Mcclendon [facility] [address],[place] [address] 01/15/2022 14:02:10 01/15/2022 15:47:30 Menopausal symptom 15083908 N95.1 check labs, consider hRT to help with sxs, f/u wwe in may 2022 Weight gain 5561909 R63. 5 check be[address]efits and see Dr. Nagy [id number] El Nagy MD [employer] [address],[place] [address] 01/21/2022 14:17:55 01/23/2022 13:50:59 Obesity 289855834 E66.9 This patient is a 51-year-ol d [...] in weight loss medication s. Menopausal symptom 29336 002 E89.41 [id number] El Nagy MD [employer] [address] [address] 02/11/2022 14:53:17 02/17/2022 14:12:54 Obesity 659361124 E66.9 This patient is a 51-year-ol d [...] at. She is in contact with the [facility]. She return here in 2 weeks to further discuss her progress and additional therapy. she is believed to have severe sleep apnea. Encouraged following up on the study. [id number] CORIN Juarez [employer] [address] [address] 05/05/2022 13:59:15 05/05/2022 16:50:04 Screening for malignant neoplasm of breast 918684573 Z12.39 Gynecologi c examination 21185791 Z01.419 Take Calcium with Vitamin D 12-1500mg daily. Do monthly self breast exams. It is advised to get annual flu shot in the fall and she could obtain at [facility] or [facility] care clinic. If you haven't received the [...] hx of DVT/PE, HTN, liver disease, cancer, stroke/ME. 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 She will follow-up as needed. [id number] Antonieta Mcclendon [facility] [address],[facility] [place] [address] 06/05/2023 13:57:37 06/05/2023 14:29:41 Gynecologic examination 08137501 Z01.419 N95.1 Z83.3 Menopausal symptom 42582 002 N95.1 [id number] Antonieta Mcclendon [facility] [address],[facility] [place] [address] 10/26/2024 16:17:22 10/28/2024 07:08:57 Screening mammography 39855485 Z12.31 Menopausal symptom 26946 002 N95.1 Gynecologi c examination 38309212 Z01.419 N95.1 Z83.3 Health Concerns Section Related Observation LastModified by Organization Detai ls LastModified Time None Recorded Concern Status LastModified by Organization Details LastModified Time None Recorded Advance Directives Directive N: Payers Encounter Date Sequence Insurance Name Policy Number Policy Felix Covered Member ID Felix Member ID Guarantor Name 05/05/2022 1 [place] 105 Meche Newton [id number] Meche Newton 06/24/2022 1 [place] 105 Meche Newton [id number] Mechejoão Newton 06/24/2022 2 [place] [employer] [place] [id number] Meche Newton 04/03/2023 1 [place] 105 Meche Newton [id number] Meche Newton 06/05/2023 1 [place] 105 Meche Newton [id number] Meche Newton 10/26/2024 1 [place] 105 Meche Newton [id number] Meche Newton Notes Date Note Type Note Provider Name and Address Organization Details Recorded Time 05/05/2022 text/html Annual Poultry Farmer Meat Post-MenopausalRe ported bypatient.Menopau kaushik Symptoms:no menopausal symptoms; [...] schedule colonoscopy CORIN Juarez [address], [place], [address], [facility] 05/05/2022 15:34:11 04/03/2023 text/html 52-year-old female presents for follow-up on menopause symptoms. She is treated have very intense menopausal symptoms again. She has been taking 1 mg of estradiol. . We spent 20 minutes [id number]-[id number]. More than 50% was counseling. We talked continued hormone replacement therapy we talked about hormonal testing/quantific ation. We agreed to increase to 2 mg and then consider tapering down to 1.5. She will follow-up as needed. lE Nagy MD [address], [place], [address], [facility] 04/03/2023 14:45:24 06/05/2023 text/html [...] daily Antonieta Mcclendon CNM [address], [place], [address], [facility] 06/05/2023 14:29:17 10/26/2024 text/html [...] 40 Antonieta Mcclendon CNM [address], [place], [address], [facility] 10/26/2024 17:51:33 OBGyn Episode Ob Episode Information Episode Created Date Number of Fetuses Patient Bloodtype Patient rh Status Prepregnancy Weight lbs Domestic Partner Domestic Partner Phone Father Name Retail Assistant Status 04/15/20 21 1 CLOSED Fetus Data [...] Domestic Partner Domestic Partner Phone Father Name Retail Assistant Status 04/15/20 21 1 CLOSED Fetus Data [...] Domestic Partner Domestic Partner Phone Father Name Retail Assistant Status 04/15/20 21 1 CLOSED Fetus Data [...]
--- OUTSIDE RECORDS SUMMARY | 2025-05-09 09:51 | XMS_ITS | Clinical Summary ---
Author Organization [facility] [address] Address [address] [place] [address] Care Team Providers Care Smelter Liner Name Role Phone Katerina Greco NP Primary Care Provider Social History Tobacco Use Types Packs/Day Years Used Date Smoking Tobacco: Never Assessed Personal Safety Answer Date Recorded Getting School Help Needed Not on file 02/13 Comments Unknown Sex and Gender Information Value Date Recorded Sex Assigned at Not on file Legal Sex Female 1:49 AM CERTIFIED PHLEBOTOMY TECHNICIAN Gender Identity Not on file Sexual Orientation Not on file Last Filed Vital Signs Vital Sign Reading Time Taken Comments Blood Pressure 133/93 10/14/2021 8:51 AM CERTIFIED PHLEBOTOMY TECHNICIAN Pulse 78 01/19/2017 11:15 AM CERTIFIED PHLEBOTOMY TECHNICIAN Temperature 36.6 C (97.9 F) 12/02/2016 8:50 AM CERTIFIED PHLEBOTOMY TECHNICIAN Respiratory Rate - - Oxygen Saturation 96% 01/19/2017 11:15 AM CERTIFIED PHLEBOTOMY TECHNICIAN Inhaled Oxygen Concentration - - Weight 93.9 kg (207 lb) 01/19/2017 11:15 AM CERTIFIED PHLEBOTOMY TECHNICIAN Height 165.1 cm (5' 5) 01/19/2017 11:15 AM CERTIFIED PHLEBOTOMY TECHNICIAN Body Mass Index 34.45 01/19/2017 11:15 AM CERTIFIED PHLEBOTOMY TECHNICIAN Plan of Treatment Not on file Insurance [facility] FEDERAL Care Teams Smelter Liner Relationship Specialty Start Date End Date Katerina Greco NP [address] [place] [address] PCP - General Cardiovascular Disease 03/16/24
--- OUTSIDE RECORDS SUMMARY | 2025-05-09 09:51 | XMS_ITS | Encounter Summary ---
Author Organization [facility] Facility Care Team Providers Care Siebel Crm Developer Name Role Phone Brian Fagan MD Primary Care Provider [phone] Katerina Greco NP Primary Care Provider [phone] Encounter Details Date Type Department Care Team (Latest Contact Info) Description 01/03/2017 Orders Only [facility] CLINCONV ProviderTerrie MD [address] [place], [place] [id number] Social History Tobacco Use Types Packs/Day Years Used Date Smoking Tobacco: Never Assessed Comments Unknown Sex and Gender Information Value Date Recorded Sex Assigned at Not on file Legal Sex Female 1:49 AM MISSILE FACILITIES REPAIRER Gender Identity Not on file Sexual Orientation Not on file documented as of this encounter Plan of Treatment Not on file documented as of this encounter Procedures Procedure Name Priority Date/Time Associated Diagnosis Comments CARDIOLOGY REPORT 01/05/2017 12: 00 AM MISSILE FACILITIES REPAIRER documented in this encounter Results * CARDIOLOGY REPORT (01/05/2017 12:00 AM MISSILE FACILITIES REPAIRER) Anatomical Region Laterality Modality Other Narrative 01/05/2017 12:00 AM MISSILE FACILITIES REPAIRER Ordered by an unspecified provider. Historical Provider [facility] Final Result documented in this encounter Visit Diagnoses Not on filedocumented in this encounter Care Teams Siebel Crm Developer Relationship Specialty Start Date End Date Brian Fagan MD [address] [place] [address] PCP - General Internal Medicine 09/26/21 03/15/24 Katerina Greco NP [address] [place] [address] PCP - General Cardiovascular Disease 03/16/24 documented as of this encounter
--- OUTSIDE RECORDS SUMMARY | 2025-05-09 09:51 | XMS_ITS | Encounter Summary ---
Author Organization [facility] Facility Care Team Providers Care Shader And Toner Name Role Phone Brian Fagan MD Primary Care Provider [phone] aKterina Greco NP Primary Care Provider [phone] Encounter Details Date Type Department Care Team (Latest Contact Info) Description 01/11/2017 Orders Only [facility] CLINCONV ProviderTerrie MD [address] [place], [place] [id number] Social History Tobacco Use Types Packs/Day Years Used Date Smoking Tobacco: Never Assessed Comments Unknown Sex and Gender Information Value Date Recorded Sex Assigned at Not on file Legal Sex Female 1:49 AM JIG GRINDER SET UP OPERATOR Gender Identity Not on file Sexual Orientation Not on file documented as of this encounter Plan of Treatment Not on file documented as of this encounter Procedures Procedure Name Priority Date/Time Associated Diagnosis Comments CARDIOLOGY REPORT 01/11/2017 12: 00 AM JIG GRINDER SET UP OPERATOR documented in this encounter Results * CARDIOLOGY REPORT (01/11/2017 12:00 AM JIG GRINDER SET UP OPERATOR) Anatomical Region Laterality Modality Other Narrative 01/11/2017 12:00 AM JIG GRINDER SET UP OPERATOR Ordered by an unspecified provider. Historical Provider [facility] Final Result documented in this encounter Visit Diagnoses Not on filedocumented in this encounter Care Teams Shader And Toner Relationship Specialty Start Date End Date Brian Fagan MD [address] [place] [address] PCP - General Internal Medicine 09/26/21 03/15/24 Katerina Greco NP [address] [place] [address] PCP - General Cardiovascular Disease 03/16/24 documented as of this encounter
--- OUTSIDE RECORDS SUMMARY | 2025-05-09 09:51 | XMS_ITS | Referral Summary ---
Author Organization [facility] [address] Address [address] [place] [address] Care Team Providers Care Conveyor Line Bakery Worker Name Role Phone Katerina Greco NP Primary Care Provider Social History Tobacco Use Types Packs/Day Years Used Date Smoking Tobacco: Never Assessed Personal Safety Answer Date Recorded Getting School Help Needed Not on file 02/13 Comments Unknown Sex and Gender Information Value Date Recorded Sex Assigned at Not on file Legal Sex Female 1:49 AM INFORMATION TECHNOLOGY ADMINISTRATOR Gender Identity Not on file Sexual Orientation Not on file Last Filed Vital Signs Vital Sign Reading Time Taken Comments Blood Pressure 133/93 10/14/2021 8:51 AM INFORMATION TECHNOLOGY ADMINISTRATOR Pulse 78 01/19/2017 11:15 AM INFORMATION TECHNOLOGY ADMINISTRATOR Temperature 36.6 C (97.9 F) 12/02/2016 8:50 AM INFORMATION TECHNOLOGY ADMINISTRATOR Respiratory Rate - - Oxygen Saturation 96% 01/19/2017 11:15 AM INFORMATION TECHNOLOGY ADMINISTRATOR Inhaled Oxygen Concentration - - Weight 93.9 kg (207 lb) 01/19/2017 11:15 AM INFORMATION TECHNOLOGY ADMINISTRATOR Height 165.1 cm (5' 5) 01/19/2017 11:15 AM INFORMATION TECHNOLOGY ADMINISTRATOR Body Mass Index 34.45 01/19/2017 11:15 AM INFORMATION TECHNOLOGY ADMINISTRATOR Plan of Treatment Not on file Insurance [facility] FEDERAL Care Teams Conveyor Line Bakery Worker Relationship Specialty Start Date End Date Katerina Greco NP [address] [place] [address] PCP - General Cardiovascular Disease 03/16/24
--- OUTSIDE RECORDS SUMMARY | 2025-05-09 09:51 | XMS_ITS | Encounter Summary ---
Author Organization [facility] Facility Care Team Providers Care Bus Trolley And Taxi Instructor Name Role Phone Brian Fagan MD Primary Care Provider [phone] Katerina Greco NP Primary Care Provider [phone] Encounter Details Date Type Department Care Team (Latest Contact Info) Description 01/14/2017 Orders Only [facility] CLINCONV ProviderTerrie MD [address] [place], [place] [id number] Social History Tobacco Use Types Packs/Day Years Used Date Smoking Tobacco: Never Assessed Comments Unknown Sex and Gender Information Value Date Recorded Sex Assigned at Not on file Legal Sex Female 1:49 AM ELECTRONIC ENGINEERING DRAFTSPERSON Gender Identity Not on file Sexual Orientation Not on file documented as of this encounter Plan of Treatment Not on file documented as of this encounter Procedures Procedure Name Priority Date/Time Associated Diagnosis Comments CARDIOLOGY REPORT 01/15/2017 12: 00 AM ELECTRONIC ENGINEERING DRAFTSPERSON documented in this encounter Results * CARDIOLOGY REPORT (01/15/2017 12:00 AM ELECTRONIC ENGINEERING DRAFTSPERSON) Anatomical Region Laterality Modality Other Narrative 01/15/2017 12:00 AM ELECTRONIC ENGINEERING DRAFTSPERSON Ordered by an unspecified provider. Historical Provider [facility] C[facility] Final Result documented in this encounter Visit Diagnoses Not on filedocumented in this encounter Care Teams Bus Trolley And Taxi Instructor Relationship Specialty Start Date End Date Brian Fagan MD [address] [place] [address] PCP - General Internal Medicine 09/26/21 03/15/24 Katerina Greco NP [address] [place] [address] PCP - General Cardiovascular Disease 03/16/24 documented as of this encounter
--- OUTSIDE RECORDS SUMMARY | 2025-05-09 09:51 | XMS_ITS | Encounter Summary ---
Author Organization [facility] Facility Care Team Providers Care Lapel Padder Name Role Phone Brian Fagan MD Primary Care Provider [phone] Katerina Greco NP Primary Care Provider [phone] Encounter Details Date Type Department Care Team (Latest Contact Info) Description 12/02/2016 Orders Only [facility] CLINCONV ProviderTerrie MD [address] [place], [place] [phone] Social History Tobacco Use Types Packs/Day Years Used Date Smoking Tobacco: Never Assessed Comments Unknown Sex and Gender Information Value Date Recorded Sex Assigned at Not on file Legal Sex Female 1:49 AM STAVE PLANER TENDER Gender Identity Not on file Sexual Orientation Not on file documented as of this encounter Plan of Treatment Not on file documented as of this encounter Procedures Procedure Name Priority Date/Time Associated Diagnosis Comments SCAN - LABS 12/10/2016 12:00 AM STAVE PLANER TENDER CARDIOLOGY REPORT 12/10/2016 12: 00 AM STAVE PLANER TENDER documented in this encounter Results * SCAN - LABS (12/10/2016 12:00 AM STAVE PLANER TENDER) Narrative 12/10/2016 12:00 AM STAVE PLANER TENDER Ordered by an unspecified provider. Historical Provider Final Res ult * CARDIOLOGY REPORT (12/10/2016 12:00 AM STAVE PLANER TENDER) Anatomical Region Laterality Modality Other Narrative 12/10/2016 12:00 AM STAVE PLANER TENDER Ordered by an unspecified provider. us Historical Provider [facility] Final Result documented in this encounter Visit Diagnoses Not on filedocumented in this encounter Care Teams Lapel Padder Relationship Specialty Start Date End Date Brian Fagan MD [address] [place] [address] PCP - General Internal Medicine 09/26/21 03/15/24 Katerina Greco NP [address] [place] [address] PCP - General Cardiovascular Disease 03/16/24 documented as of this encounter
--- OUTSIDE RECORDS SUMMARY | 2025-05-09 09:51 | XMS_ITS | Encounter Summary ---
Author Organization [facility] Facility Care Team Providers Care Computer Repair Instructor Name Role Phone Brian Fagan MD Primary Care Provider [phone] Katerina Greco NP Primary Care Provider [phone] Encounter Details Date Type Department Care Team (Latest Contact Info) Description 01/12/2017 Orders Only [facility] CLINCONV ProviderTerrie MD [address] [place], [place] [phone] Social History Tobacco Use Types Packs/Day Years Used Date Smoking Tobacco: Never Assessed Comments Unknown Sex and Gender Information Value Date Recorded Sex Assigned at Not on file Legal Sex Female 1:49 AM LINE LEAD Gender Identity Not on file Sexual Orientation Not on file documented as of this encounter Plan of Treatment Not on file documented as of this encounter Procedures Procedure Name Priority Date/Time Associated Diagnosis Comments CARDIOLOGY REPORT 01/13/2017 12: 00 AM LINE LEAD documented in this encounter Results * CARDIOLOGY REPORT (01/13/2017 12:00 AM LINE LEAD) Anatomical Region Laterality Modality Other Narrative 01/13/2017 12:00 AM LINE LEAD Ordered by an unspecified provider. Historical Provider [facility] CARDIAC [facility] Final Result documented in this encounter Visit Diagnoses Not on filedocumented in this encounter Care Teams Computer Repair Instructor Relationship Specialty Start Date End Date Brian Fagan MD [address] [place] [address] PCP - General Internal Medicine 09/26/21 03/15/24 Katerina Greco NP [address] [place] [address] PCP - General Cardiovascular Disease 03/16/24 documented as of this encounter
--- OUTSIDE RECORDS SUMMARY | 2025-05-09 09:51 | XMS_ITS | Encounter Summary ---
Author Organization [facility] Facility Care Team Providers Care Asbestos Wire Finisher Name Role Phone Brian Fagan MD Primary Care Provider [phone] Katerina Greco NP Primary Care Provider [phone] Encounter Details Date Type Department Care Team (Latest Contact Info) Description 12/31/2016 Orders Only [facility] CLINCONV ProviderTerrie MD [address] [place], [place] [phone] Social History Tobacco Use Types Packs/Day Years Used Date Smoking Tobacco: Never Assessed Comments Unknown Sex and Gender Information Value Date Recorded Sex Assigned at Not on file Legal Sex Female 1:49 AM GOLD WHEEL BLOCKER AND POLISHER Gender Identity Not on file Sexual Orientation Not on file documented as of this encounter Plan of Treatment Not on file documented as of this encounter Procedures Procedure Name Priority Date/Time Associated Diagnosis Comments CARDIOLOGY REPORT 12/31/2016 12: 00 AM GOLD WHEEL BLOCKER AND POLISHER documented in this encounter Results * CARDIOLOGY REPORT (12/31/2016 12:00 AM GOLD WHEEL BLOCKER AND POLISHER) Anatomical Region Laterality Modality Other Narrative 12/31/2016 12:00 AM GOLD WHEEL BLOCKER AND POLISHER Ordered by an unspecified provider. Historical Provider [facility] CARDIAC [facility] Final Result documented in this encounter Visit Diagnoses Not on filedocumented in this encounter Care Teams Asbestos Wire Finisher Relationship Specialty Start Date End Date Brian Fagan MD [address] [place] [address] PCP - General Internal Medicine 09/26/21 03/15/24 Katerina Greco NP [address] [place] [address] PCP - General Cardiovascular Disease 03/16/24 documented as of this encounter
--- OUTSIDE RECORDS SUMMARY | 2025-05-09 09:51 | XMS_ITS | Encounter Summary ---
Author Organization [facility] Facility Care Team Providers Care Crab Meat Processor Name Role Phone Brian Fagan MD Primary Care Provider [phone] Katerina Greco NP Primary Care Provider [phone] Encounter Details Date Type Department Care Team (Latest Contact Info) Description 01/17/2017 Orders Only [facility] CLINCONV ProviderTerrie MD [address] [place], [place] [phone] Social History Tobacco Use Types Packs/Day Years Used Date Smoking Tobacco: Never Assessed Comments Unknown Sex and Gender Information Value Date Recorded Sex Assigned at Not on file Legal Sex Female 1:49 AM IMAGING TECHNOLOGIST Gender Identity Not on file Sexual Orientation Not on file documented as of this encounter Plan of Treatment Not on file documented as of this encounter Procedures Procedure Name Priority Date/Time Associated Diagnosis Comments CARDIOLOGY REPORT 01/17/2017 12: 00 AM IMAGING TECHNOLOGIST documented in this encounter Results * CARDIOLOGY REPORT (01/17/2017 12:00 AM IMAGING TECHNOLOGIST) Anatomical Region Laterality Modality Other Narrative 01/17/2017 12:00 AM IMAGING TECHNOLOGIST Ordered by an unspecified provider. Historical Provider CV CARDIAC SERVICES [facility] Final Result documented in this encounter Visit Diagnoses Not on filedocumented in this encounter Care Teams Crab Meat Processor Relationship Specialty Start Date End Date Brian Fagan MD [address] [place] [address] PCP - General Internal Medicine 09/26/21 03/15/24 Katerina Greco NP [address] [place] [address] PCP - General Cardiovascular Disease 03/16/24 documented as of this encounter
--- OUTSIDE RECORDS SUMMARY | 2025-05-09 09:51 | XMS_ITS | CONTINUITY OF CARE DOCUMENT ---
Author Name tamika lundberg Address Unknown Organization [facility] Address [address] [address] [place] [address] Phone [phone] Care Team Providers Care Dry Food Products Mixer Name Role Phone Latesha Hernandez MD Unavailable NAVIN DURAN, MIGDALIA F Unavailable [phone] NAVIN DURAN, MIGDALIA F Unavailable PROBLEMS Condition Status Date Provider Notes CHEST PAIN UNSPECIFIED active Latesha rangel MD SHORTNESS OF BREATH active ? Latesha Cespedes PALPITATIONS active ? Latesha Hernandez MD OBESITY active ? Latesha Hernandez MD ENCOUNTERS Date Type Provider Location Encounter Diag nosis - In-person encounter Office Visit Latesha Hernandez MD [facility] - In-person encounter Office Visit Latesha Hernandez MD [facility] - In-person encounter Office Visit Latesha Hernandez MD [facility] CHEST PAIN UNSPECIFIEDSHORTNESS OF BREATHPALPITATIONSOBESITY VITAL [...] requency, days per week 7 /wk Guillermo [employer] The[employer]jose raul smoking history, tot al pack/year 10 [...] Payer name Policy type / Coverage type [place] red constitution party ID BLUE PREFERRED HMO Blue Shield [id number] TREATMENT PLAN Date Name Complete Echo Spirometry Mobile Cardiac Tele Stress Test - Nuclea r HISTORY OF PROCEDURES Procedure Date Procedure Name Provider Procedure Notes S tatus EKG Josh Harris RN completed EKG Latesha Hernandez MD complet ed
--- OUTSIDE RECORDS SUMMARY | 2025-05-09 09:51 | XMS_ITS | Encounter Summary ---
Author Organization [facility] Facility Care Team Providers Care Aerial Lineman Name Role Phone Brian Fagan MD Primary Care Provider [phone] Katerina Greco NP Primary Care Provider [phone] Encounter Details Date Type Department Care Team (Latest Contact Info) Description 12/30/2016 Orders Only [facility] CLINCONV ProviderTerrie MD [address] [place], [place] [phone] Social History Tobacco Use Types Packs/Day Years Used Date Smoking Tobacco: Never Assessed Comments Unknown Sex and Gender Information Value Date Recorded Sex Assigned at Not on file Legal Sex Female 1:49 AM PIPEFITTER Gender Identity Not on file Sexual Orientation Not on file documented as of this encounter Plan of Treatment Not on file documented as of this encounter Procedures Procedure Name Priority Date/Time Associated Diagnosis Comments CARDIOLOGY REPORT 12/30/2016 12: 00 AM PIPEFITTER documented in this encounter Results * CARDIOLOGY REPORT (12/30/2016 12:00 AM PIPEFITTER) Anatomical Region Laterality Modality Other Narrative 12/30/2016 12:00 AM PIPEFITTER Ordered by an unspecified provider. Historical Provider CV CARDIAC [facility] Final Result documented in this encounter Visit Diagnoses Not on filedocumented in this encounter Care Teams Aerial Lineman Relationship Specialty Start Date End Date Brian Fagan MD [address] [place] [address] PCP - General Internal Medicine 09/26/21 03/15/24 Katerina Greco NP [address] [place] [address] PCP - General Cardiovascular Disease 03/16/24 documented as of this encounter
--- OUTSIDE RECORDS SUMMARY | 2025-05-09 09:51 | XMS_ITS | Encounter Summary ---
Author Organization [facility] Facility Care Team Providers Care Airport Utility Worker Name Role Phone Brian Fagan MD Primary Care Provider [phone] Katerina Greco NP Primary Care Provider [phone] Encounter Details Date Type Department Care Team (Latest Contact Info) Description 01/02/2017 Orders Only [facility] CLINCONV ProviderTerrie MD [address] [place], [place] [phone] Social History Tobacco Use Types Packs/Day Years Used Date Smoking Tobacco: Never Assessed Comments Unknown Sex and Gender Information Value Date Recorded Sex Assigned at Not on file Legal Sex Female 1:49 AM GEOTHERMAL OPERATIONS MANAGER Gender Identity Not on file Sexual Orientation Not on file documented as of this encounter Plan of Treatment Not on file documented as of this encounter Procedures Procedure Name Priority Date/Time Associated Diagnosis Comments CARDIOLOGY REPORT 01/05/2017 12: 00 AM GEOTHERMAL OPERATIONS MANAGER documented in this encounter Results * CARDIOLOGY REPORT (01/05/2017 12:00 AM GEOTHERMAL OPERATIONS MANAGER) Anatomical Region Laterality Modality Other Narrative 01/05/2017 12:00 AM GEOTHERMAL OPERATIONS MANAGER Ordered by an unspecified provider. Historical Provider CV CARDIAC SERVICES [facility]IN [facility]BA Final Result documented in this encounter Visit Diagnoses Not on filedocumented in this encounter Care Teams Airport Utility Worker Relationship Specialty Start Date End Date Brian Fagan MD [address] [place] [address] PCP - General Internal Medicine 09/26/21 03/15/24 Katerina Greco NP [address] [place] [address] PCP - General Cardiovascular Disease 03/16/24 documented as of this encounter
--- OUTSIDE RECORDS SUMMARY | 2025-05-09 09:51 | XMS_ITS | Encounter Summary ---
Author Organization [facility] Facility Care Team Providers Care Quoter Name Role Phone Brian Fagan MD Primary Care Provider [phone] Katerina Greco NP Primary Care Provider [phone] Encounter Details Date Type Department Care Team (Latest Contact Info) Description 01/08/2017 Orders Only [facility] CLINCONV ProviderTerrie MD [address] [place], [place] [phone] Social History Tobacco Use Types Packs/Day Years Used Date Smoking Tobacco: Never Assessed Comments Unknown Sex and Gender Information Value Date Recorded Sex Assigned at Not on file Legal Sex Female 1:49 AM MEDICAL CODING INSTRUCTOR Gender Identity Not on file Sexual Orientation Not on file documented as of this encounter Plan of Treatment Not on file documented as of this encounter Procedures Procedure Name Priority Date/Time Associated Diagnosis Comments CARDIOLOGY REPORT 01/08/2017 12: 00 AM MEDICAL CODING INSTRUCTOR CARDIOLOGY REPORT 01/08/2017 12: 00 AM MEDICAL CODING INSTRUCTOR documented in this encounter Results * CARDIOLOGY REPORT (01/08/2017 12:00 AM MEDICAL CODING INSTRUCTOR) Anatomical Region Laterality Modality Other Narrative 01/08/2017 12:00 AM MEDICAL CODING INSTRUCTOR Ordered by an unspecified provider. Historical Provider CV C[facility]IAC [facility] Final Result * CARDIOLOGY REPORT (01/08/2017 12:00 AM MEDICAL CODING INSTRUCTOR) Anatomical Region Laterality Modality Other Narrative 01/08/2017 12:00 AM MEDICAL CODING INSTRUCTOR Ordered by an unspecified provider. us Historical Provider CV CARDIAC SERVICES [facility]IN [facility] Final Result documented in this encounter Visit Diagnoses Not on filedocumented in this encounter Care Teams Quoter Relationship Specialty Start Date End Date Brian Fagan MD [address] [place] [address] PCP - General Internal Medicine 09/26/21 03/15/24 Katerina Greco NP [address] [place] [address] PCP - General Cardiovascular Disease 03/16/24 documented as of this encounter
--- OUTSIDE RECORDS SUMMARY | 2025-05-09 09:51 | XMS_ITS | Encounter Summary ---
Author Organization [facility] Facility Care Team Providers Care Contract Design Agent Name Role Phone Brian Fagan MD Primary Care Provider [phone] Katerina Greco NP Primary Care Provider [phone] Encounter Details Date Type Department Care Team (Latest Contact Info) Description 01/13/2017 Orders Only [facility] CLINCONV ProviderTerrie MD [address] [place], [place] [phone] Social History Tobacco Use Types Packs/Day Years Used Date Smoking Tobacco: Never Assessed Comments Unknown Sex and Gender Information Value Date Recorded Sex Assigned at Not on file Legal Sex Female 1:49 AM BAND AID MACHINE OPERATOR Gender Identity Not on file Sexual Orientation Not on file documented as of this encounter Plan of Treatment Not on file documented as of this encounter Procedures Procedure Name Priority Date/Time Associated Diagnosis Comments CARDIOLOGY REPORT 01/14/2017 12: 00 AM BAND AID MACHINE OPERATOR documented in this encounter Results * CARDIOLOGY REPORT (01/14/2017 12:00 AM BAND AID MACHINE OPERATOR) Anatomical Region Laterality Modality Other Narrative 01/14/2017 12:00 AM BAND AID MACHINE OPERATOR Ordered by an unspecified provider. Historical Provider CV CARDIAC SERVICES [facility]IN [facility]BA Final Result documented in this encounter Visit Diagnoses Not on filedocumented in this encounter Care Teams Contract Design Agent Relationship Specialty Start Date End Date Brian Fagan MD [address] [place] [address] PCP - General Internal Medicine 09/26/21 03/15/24 Katerina Greco NP [address] [place] [address] PCP - General Cardiovascular Disease 03/16/24 documented as of this encounter
--- OUTSIDE RECORDS SUMMARY | 2025-05-09 09:51 | XMS_ITS | Encounter Summary ---
Author Organization [facility] Facility Care Team Providers Care Relations Coordinator Name Role Phone Brian Fagan MD Primary Care Provider [phone] Katerina Greco NP Primary Care Provider [phone] Encounter Details Date Type Department Care Team (Latest Contact Info) Description 01/01/2017 Orders Only [facility] CLINCONV ProviderTerrie MD [address] [place], [place] [phone] Social History Tobacco Use Types Packs/Day Years Used Date Smoking Tobacco: Never Assessed Comments Unknown Sex and Gender Information Value Date Recorded Sex Assigned at Not on file Legal Sex Female 1:49 AM ETHNOLOGY TEACHER Gender Identity Not on file Sexual Orientation Not on file documented as of this encounter Plan of Treatment Not on file documented as of this encounter Procedures Procedure Name Priority Date/Time Associated Diagnosis Comments CARDIOLOGY REPORT 01/02/2017 12: 00 AM ETHNOLOGY TEACHER documented in this encounter Results * CARDIOLOGY REPORT (01/02/2017 12:00 AM ETHNOLOGY TEACHER) Anatomical Region Laterality Modality Other Narrative 01/02/2017 12:00 AM ETHNOLOGY TEACHER Ordered by an unspecified provider. Historical Provider CV CARDIAC SERVICES COLLIN ALBA Final Result documented in this encounter Visit Diagnoses Not on filedocumented in this encounter Care Teams Relations Coordinator Relationship Specialty Start Date End Date Brian Fagan MD [address] [place] [address] PCP - General Internal Medicine 09/26/21 03/15/24 Katerina Greco NP [address] [place] [address] PCP - General Cardiovascular Disease 03/16/24 documented as of this encounter
--- OUTSIDE RECORDS SUMMARY | 2025-05-09 09:51 | XMS_ITS | Encounter Summary ---
Author Organization [facility] Facility Care Team Providers Care Grounds Worker Name Role Phone Brian Fagan MD Primary Care Provider [phone] Katerina Greco NP Primary Care Provider [phone] Encounter Details Date Type Department Care Team (Latest Contact Info) Description 01/04/2017 Orders Only [facility]G CLINCONV ProviderTerrie MD [address] [place], [place] [phone] Social History Tobacco Use Types Packs/Day Years Used Date Smoking Tobacco: Never Assessed Comments Unknown Sex and Gender Information Value Date Recorded Sex Assigned at Not on file Legal Sex Female 1:49 AM CARGO VESSEL STEWARDESS Gender Identity Not on file Sexual Orientation Not on file documented as of this encounter Plan of Treatment Not on file documented as of this encounter Procedures Procedure Name Priority Date/Time Associated Diagnosis Comments CARDIOLOGY REPORT 01/04/2017 12: 00 AM CARGO VESSEL STEWARDESS documented in this encounter Results * CARDIOLOGY REPORT (01/04/2017 12:00 AM CARGO VESSEL STEWARDESS) Anatomical Region Laterality Modality Other Narrative 01/04/2017 12:00 AM CARGO VESSEL STEWARDESS Ordered by an unspecified provider. Historical Provider CV CARDIAC SERVICES COLLIN ALBA Final Result documented in this encounter Visit Diagnoses Not on filedocumented in this encounter Care Teams Grounds Worker Relationship Specialty Start Date End Date Brian Fagan MD [address] [place] [address] PCP - General Internal Medicine 09/26/21 03/15/24 Katerina Greco NP [address] [place] [address] PCP - General Cardiovascular Disease 03/16/24 documented as of this encounter
--- OUTSIDE RECORDS SUMMARY | 2025-05-09 09:51 | XMS_ITS | Encounter Summary ---
Author Organization [facility] Facility Care Team Providers Care Licensed Marriage And Family Therapist Name Role Phone Brian Fagan MD Primary Care Provider [phone] Katerina Greco NP Primary Care Provider [phone] Encounter Details Date Type Department Care Team (Latest Contact Info) Description 01/09/2017 Orders Only [facility] CLINCONV ProviderTerrie MD [address] [place], [place] [phone] Social History Tobacco Use Types Packs/Day Years Used Date Smoking Tobacco: Never Assessed Comments Unknown Sex and Gender Information Value Date Recorded Sex Assigned at Not on file Legal Sex Female 1:49 AM INFLATED PAD BUFFER Gender Identity Not on file Sexual Orientation Not on file documented as of this encounter Plan of Treatment Not on file documented as of this encounter Procedures Procedure Name Priority Date/Time Associated Diagnosis Comments CARDIOLOGY REPORT 01/12/2017 12: 00 AM INFLATED PAD BUFFER documented in this encounter Results * CARDIOLOGY REPORT (01/12/2017 12:00 AM INFLATED PAD BUFFER) Anatomical Region Laterality Modality Other Narrative 01/12/2017 12:00 AM INFLATED PAD BUFFER Ordered by an unspecified provider. Historical Provider CV CARDIAC SERVICES COLLIN ALBA Final Result documented in this encounter Visit Diagnoses Not on filedocumented in this encounter Care Teams Licensed Marriage And Family Therapist Relationship Specialty Start Date End Date Brian Fagan MD [address] [place] [address] PCP - General Internal Medicine 09/26/21 03/15/24 Katerina Greco NP [address] [place] [address] PCP - General Cardiovascular Disease 03/16/24 documented as of this encounter
== END 2025-05-09 09:20 | disposition home or self-care (01) ==
LOC: ANHCARD 09:21
PROVIDERS: PCP Clinical Nurse Specialist; Visit Provider Clinical Nurse Specialist
DX: R07.9 Chest pain, unspecified (principal)
CPT/HCPCS: 93351